=== PATIENT | male | born 1950 | race Caucasian/White ===

== ENCOUNTER 2017-08-07 08:12 | Emergency (ER) | payer MEDICARE, BC ==
[2017-08-07] MEDS ORDERED: IPRATROPIUM-ALBUTEROL 3 ML NEB INHALATION STA (08:24)
[2017-08-07] MEDS ORDERED: SODIUM CHLORIDE 0.9% 1,000 ML IV STA (08:24)
--- NOTE | 2017-08-07 08:31 | ED ---
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 He states it always weeks ago he had rhinorrhea perhaps some cough and chills he thought he had flu symptoms that is since resolved in the symptoms except for the shortness of breath he denies any chest pain he states he was out cleaning snow off this morning when he started getting short of breath without chest pain he states he doesn't feel totally back to normal now he does feel better at this time talking does not make him short of breath. Began with exertion he did have the dyspnea. His other complaints this time he quit smoking many years ago no cough or phlegm production fevers chills sweats patient does state that in the past he had been on Combivent and Spiriva he has not been using this as he does not feel that he has needed it recently MD Complaint: shortness of breath - Related Data Home Medications Medication Instructions Recorded Confirmed Aspirin 81 mg PO DAILY 05/26/15 08/07/17 Carvedilol [Coreg] 6.25 mg PO BID 05/26/15 08/07/17 Hydrochlorothiazide [Hydrodiuril] 25 mg PO DAILY 05/26/15 08/07/17 Levothyroxine Sodium [Levoxyl] 200 mcg PO DAILY 05/26/15 08/07/17 Simvastatin [Zocor] 40 mg PO HS 05/26/15 08/07/17 Cholecalciferol [Vitamin D3] 1,000 unit PO DAILY 08/07/17 08/07/17 Insulin Aspart [NovoLOG 20 unit SQ AC-BRKFST 08/07/17 08/07/17 (formulary)] Insulin Aspart [NovoLOG 22 unit SQ AC-LUNCH 08/07/17 08/07/17 (formulary)] Insulin Aspart [NovoLOG 32 unit SQ AC-SUPPER 08/07/17 08/07/17 (formulary)] Insulin Glargine,Hum.rec.anlog 70 units SQ HS 08/07/17 08/07/17 [Toujeo Solostar] Lisinopril 40 mg PO BID 08/07/17 08/07/17 Thiamine [Vitamin B-1] 50 mg PO DAILY 08/07/17 08/07/17 Previous Rx's Medication Instructions Recorded Ipratropium/Albuterol Sulfate 2 puff INHALATION QID #1 inhaler 08/07/17 [Combivent Respimat Inhaler] predniSONE 20 mg PO BID #10 tab 08/07/17 Allergies Allergy/AdvReac Type Severity Reaction Status Date / Time No Known Allergies Allergy Verified 08/07/17 08:43 Review of Systems ROS Statement: Those systems with pertinent positive or pertinent negative responses have been documented in the HPI. ROS Other: All systems not noted in ROS Statement are negative. Past Medical History Past Medical History: Diabetes Mellitus, Hypertension, Thyroid Disorder History of Any Multi-Drug Resistant Organisms: None Reported Past Surgical History: Appendectomy, Hernia Repair Past Psychological History: No Psychological Hx Reported Smoking Status: Former smoker Past Alcohol Use History: Occasional Past Drug Use History: None Reported General Exam - General Exam Comments Initial Comments: This is a well-developed well-nourished awake alert oriented 3 male Limitations: no limitations General appearance: alert, in no apparent distress Head exam: Present: atraumatic, normocephalic, normal inspection Eye exam: Present: normal appearance, PERRL, EOMI. Absent: scleral icterus, conjunctival injection, periorbital swelling ENT exam: Present: normal exam, mucous membranes moist Neck exam: Present: normal inspection. Absent: tenderness, meningismus, lymphadenopathy Respiratory exam: Present: decreased breath sounds. Absent: respiratory distress, wheezes, rales, rhonchi, stridor Cardiovascular Exam: Present: regular rate, normal rhythm, normal heart sounds. Absent: systolic murmur, diastolic murmur, rubs, gallop, clicks GI/Abdominal exam: Present: soft, normal bowel sounds. Absent: distended, tenderness, guarding, rebound, rigid Extremities exam: Present: normal inspection, full ROM, normal capillary refill. Absent: tenderness, pedal edema, joint swelling, calf tenderness Back exam: Present: normal inspection Neurological exam: Present: alert, oriented X3, CN II-XII intact Psychiatric exam: Present: normal affect, normal mood Skin exam: Present: warm, dry, intact, normal color. Absent: rash Course Vital Signs 08/07/17 08/07/17 08/07/17 08:14 08:45 09:03 Temperature 97.6 F Pulse Rate 77 73 76 Respiratory 18 Rate Blood Pressure 173/81 O2 Sat by Pulse 99 Oximetry 08/07/17 08/07/17 09:38 10:30 Temperature Pulse Rate 80 70 Respiratory 19 14 Rate Blood Pressure 148/71 127/64 O2 Sat by Pulse 97 96 Oximetry - Reevaluation(s) Reevaluation #1: 08/07/17 09:36 Patient did get some improvement after the nebulizer treatment. We did discuss lab values however the patient had no chest pain but does have elevated d-dimer there is concern at this point for the possibility of clotting. CT the chest will be performed. Medical Decision Making - Medical Decision Making Reevaluation patient reveals good lung sounds no wheezing. Patient does feel improved he will be discharged on appropriate medication will be referred to pulmonary medicine for evaluation of the nodule he is aware of the nodule in the size. - Lab Data Result diagrams: 08/07/17 08:25 08/07/17 08:25 Lab Results 08/07/17 08/07/17 08/07/17 Range/Units 08:25 08:25 08:25 WBC 10.8 H (3.8-10.6) k/uL RBC 4.73 (4.30-5.90) m/uL Hgb 13.8 (13.0-17.5) gm/dL Hct 40.5 (39.0-53.0) % MCV 85.6 (80.0-100.0) fL MCH 29.1 (25.0-35.0) pg MCHC 34.0 (31.0-37.0) g/dL RDW 13.8 (11.5-15.5) % Plt Count 272 (150-450) k/uL Neutrophils % 71 % Lymphocytes % 19 % Monocytes % 4 % Eosinophils % 4 % Basophils % 1 % Neutrophils # 7.7 (1.3-7.7) k/uL Lymphocytes # 2.1 (1.0-4.8) k/uL Monocytes # 0.4 (0-1.0) k/uL Eosinophils # 0.5 (0-0.7) k/uL Basophils # 0.1 (0-0.2) k/uL PT (9.0-12.0) sec INR (<1.2) APTT (22.0-30.0) sec D-Dimer (<0.60) mg/L FEU Sodium 139 (137-145) mmol/L Potassium 4.1 (3.5-5.1) mmol/L Chloride 103 (98-107) mmol/L Carbon Dioxide 24 (22-30) mmol/L Anion Gap 12 mmol/L BUN 22 H (9-20) mg/dL Creatinine 1.07 (0.66-1.25) mg/dL Est GFR (CKD-EPI)AfAm 83 (>60 ml/min/1.73 sqM) Est GFR (CKD-EPI)NonAf 72 (>60 ml/min/1.73 sqM) Glucose 171 H (74-99) mg/dL Calcium 9.3 (8.4-10.2) mg/dL Magnesium 1.9 (1.6-2.3) mg/dL Total Bilirubin 0.5 (0.2-1.3) mg/dL AST 21 (17-59) U/L ALT 30 (21-72) U/L Alkaline Phosphatase 72 (38-126) U/L Total Creatine Kinase 116 (55-170) U/L CK-MB (CK-2) 1.7 (0.0-2.4) ng/mL CK-MB (CK-2) Rel Index 1.5 Troponin I <0.012 (0.000-0.034) ng/mL NT-Pro-B Natriuret Pep pg/mL Total Protein 6.5 (6.3-8.2) g/dL Albumin 4.0 (3.5-5.0) g/dL 08/07/17 08/07/17 Range/Units 08:25 08:25 WBC (3.8-10.6) k/uL RBC (4.30-5.90) m/uL Hgb (13.0-17.5) gm/dL Hct (39.0-53.0) % MCV (80.0-100.0) fL MCH (25.0-35.0) pg MCHC (31.0-37.0) g/dL RDW (11.5-15.5) % Plt Count (150-450) k/uL Neutrophils % % Lymphocytes % % Monocytes % % Eosinophils % % Basophils % % Neutrophils # (1.3-7.7) k/uL Lymphocytes # (1.0-4.8) k/uL Monocytes # (0-1.0) k/uL Eosinophils # (0-0.7) k/uL Basophils # (0-0.2) k/uL PT 10.3 (9.0-12.0) sec INR 1.0 (<1.2) APTT 24.0 (22.0-30.0) sec D-Dimer 0.98 H (<0.60) mg/L FEU Sodium (137-145) mmol/L Potassium (3.5-5.1) mmol/L Chloride (98-107) mmol/L Carbon Dioxide (22-30) mmol/L Anion Gap mmol/L BUN (9-20) mg/dL Creatinine (0.66-1.25) mg/dL Est GFR (CKD-EPI)AfAm (>60 ml/min/1.73 sqM) Est GFR (CKD-EPI)NonAf (>60 ml/min/1.73 sqM) Glucose (74-99) mg/dL Calcium (8.4-10.2) mg/dL Magnesium (1.6-2.3) mg/dL Total Bilirubin (0.2-1.3) mg/dL AST (17-59) U/L ALT (21-72) U/L Alkaline Phosphatase (38-126) U/L Total Creatine Kinase (55-170) U/L CK-MB (CK-2) (0.0-2.4) ng/mL CK-MB (CK-2) Rel Index Troponin I (0.000-0.034) ng/mL NT-Pro-B Natriuret Pep 40 pg/mL Total Protein (6.3-8.2) g/dL Albumin (3.5-5.0) g/dL - EKG Data -: EKG Interpreted by Me EKG shows normal: sinus rhythm (Sinus rhythm rate of 71 appear interval 164 QRS 122 QT since QTC of 396/4:30 nonspecific interventricular conduction delay also single PVC noted. Also PACs.) - Radiology Data Radiology results: report reviewed (I did review the imaging and reports no acute findings or is evidence of a 7 mm pulmonary nodule on the left upper lobe. ), image reviewed Disposition Clinical Impression: Asthmatic bronchitis, Pulmonary nodule Disposition: HOME SELF-CARE Condition: Good Instructions: Bronchospasm (ED), COPD (Chronic Obstructive Pulmonary Disease) ( ED), Pulmonary Nodules (ED) Prescriptions: Ipratropium/Albuterol Sulfate [Combivent Respimat Inhaler] 2 puff INHALATION QID #1 inhaler predniSONE 20 mg PO BID #10 tab Referrals: Dell Merino DO [Primary Care Provider] - 1-2 days Divya Matthews MD [STAFF PHYSICIAN] - 1-2 days
[2017-08-07 08:44] LABS: Basophils # (A) 0.1 k/uL (0-0.2); Basophils % (A) 1 %; Eosinophils # (A) 0.5 k/uL (0-0.7); Eosinophils % (A) 4 %; HCT 40.5 % (39.0-53.0); HGB 13.8 gm/dL (13.0-17.5); Lymphocytes # (A) 2.1 k/uL (1.0-4.8); Lymphocytes % (A) 19 %; MCH 29.1 pg (25.0-35.0); MCV 85.6 fL (80.0-100.0); Mean Platelet Volume 8.2; Monocytes # (A) 0.4 k/uL (0-1.0); Monocytes % (A) 4 %; Neutrophils # (A) 7.7 k/uL (1.3-7.7); Neutrophils % (A) 71 %; Platelet Count 272 k/uL (150-450); RBC 4.73 m/uL (4.30-5.90); RDW 13.8 % (11.5-15.5); WBC 10.8 k/uL (3.8-10.6)
[2017-08-07 08:52] LABS: D-Dimer 0.98 mg/L FEU (<0.60)
[2017-08-07 08:55] LABS: Calcium 9.3 mg/dL (8.4-10.2); Potassium 4.1 mmol/L (3.5-5.1); Total Bilirubin 0.5 mg/dL (0.2-1.3); Total Protein 6.5 g/dL (6.3-8.2)
[2017-08-07 08:58] LABS: Prothrombin Time 10.3 sec (9.0-12.0)
[2017-08-07 09:07] LABS: Creatine Kinase 116 U/L (55-170)
[2017-08-07 09:21] LABS: Creatine Kinase MB 1.7 ng/mL (0.0-2.4); Troponin I <0.012 ng/mL (0.000-0.034)
--- NOTE | 2017-08-07 09:29 | XR ---
EXAMINATION TYPE: XR chest 2V DATE OF EXAM: 08/07/2017 COMPARISON: 11/05/2008 HISTORY: 67-year-old male difficulty breathing, shortness of breath for a few days TECHNIQUE: PA and lateral views FINDINGS: Exam is rotated towards the right. This ultrasound and normal cardiac mediastinal contours. Heart naina ears normal size. Pulmonary vasculature within normal limits. Strandy atelectasis/scarring at the lef t base is relatively similar as are calcified left hilar lymph nodes and calcified granuloma at the p eripheral left base. Hyperinflation with flattening of the hemidiaphragms. No consolidation or pleura l effusion seen. IMPRESSION: Rotated exam. There is COPD and prior granulomatous disease. No definite acute process.
[2017-08-07] MEDS ORDERED: RX INFO: IV CONTRAST WAS GIVEN 1 EACH MISC MISCELLANE PRN (09:36)
--- NOTE | 2017-08-07 10:26 | CT ---
EXAMINATION TYPE: CT angio chest DATE OF EXAM: 08/07/2017 COMPARISON: Radiograph same day HISTORY: 67-year-old male SOB, elevated d dimer TECHNIQUE: Contiguous axial scanning of the chest performed with IV Contrast, patient injected with 1 00 mL of Omnipaque 350. Coronal/sagittal MIP reconstructions performed. CT DLP: 610 mGycm Automated exposure control for dose reduction was used. FINDINGS: The heart is normal size with trace anterior basilar pericardial fluid. Coronary vessel calcification s are present and are a marker for coronary artery disease. Aorta normal caliber with moderate atherosclerotic arch calcifications and conventional arch vessel b ranching anatomy. Satisfactory opacification of the pulmonary arterial system without evidence for pulmonary embolus. Calcified left hilar lymph nodes are noted with a few scattered calcified granulomas in the lungs, la rgest at the peripheral left base. No thoracic lymphadenopathy by CT size criteria. Evaluation of the lungs shows mild paraseptal emphysema in the upper lungs and mild diffuse bronchial wall thickening. There is a 7 mm pulmonary nodule in the left upper lobe axial image 37. Some strandy atelectasis or s carring at the medial right middle lobe. No consolidation or pleural effusion. Visualized upper abdomen shows a tiny hiatal hernia. Bones: Endplate spondylosis mid to lower thoracic spine and cervical spondylosis as well. No osseous destructive process. IMPRESSION: 1. COPD WITH MILD EMPHYSEMA AND PRIOR GRANULOMATOUS DISEASE. CAD. 2. NO EVIDENCE FOR PULMONARY EMBOLUS. 3. A 7 MM LEFT UPPER LOBE PULMONARY NODULE. PER FLEISCHNER GUIDELINES, A 6-12 MONTH FOLLOW-UP CT FOLL OWED BY AN ADDITIONAL FOLLOW-UP CT IN 18-24 MONTHS IS RECOMMENDED. THIS SHOULD BE DONE TO EXCLUDE AN EARLY LUNG CANCER.
[2017-08-07] MEDS ORDERED: predniSONE 50 MG TAB PO STA (11:16)
[2017-08-07 11:44] VITALS: BP 138/62; PULSE 67; RESP 16; TEMP 98.4
== END 2017-08-07 12:05 | disposition home or self-care (01) ==
LOC: EC 08:12
DX: J45.909 Unspecified asthma, uncomplicated (principal); R91.1 Solitary pulmonary nodule; Z87.891 Personal history of nicotine dependence; E11.9 Type 2 diabetes mellitus without complications; I10 Essential (primary) hypertension; E07.9 Disorder of thyroid, unspecified; Z79.82 Long term (current) use of aspirin; Z79.02 Long term (current) use of antithrombotics/antiplatelets; Z79.4 Long term (current) use of insulin; Z79.899 Other long term (current) drug therapy
CPT/HCPCS: 36415; 94640; 93005; 85379; 83880; 80053; 82550; 82553; 83735; 84484; 85025; 85610; 85730; 71046; 71275; 99285; Q9967; J7512

== ENCOUNTER → 2018-02-17 | Outpatient (CLI) | payer MEDICARE, BC ==
--- NOTE | 2018-02-17 22:44 | CT ---
EXAMINATION TYPE: CT chest w con DATE OF EXAM: 02/17/2018 COMPARISON: 08/07/2017 HISTORY: 68-year-old male Follow up nodule. No complaints at time of scan TECHNIQUE: Contiguous axial scanning of the chest after the administration of 100 mL of Isovue 300. Coronal/sagittal reconstructions performed. CT DLP: 713mGycm. Automatic exposure control utilized for a dose reduction. FINDINGS: Heart is normal size without pericardial effusion. Coronary vessel calcifications are present. Borderline ectasia ascending aorta 3.5 cm. Mild atherosclerotic arch calcifications with conventional arch vessel branching anatomy. No thoracic lymphadenopathy by CT size criteria. Calcified left hilar lymph nodes and calcified gran uloma peripheral left base. Mild diffuse bronchial wall thickening and mild sinus changes particularly in the upper lungs. Stable 7 mm left upper lobe pulmonary nodule. No consolidation or pleural effusion. Small hiatal hernia. Suspicious heterogeneously enhancing area in the lateral left kidney measuring at least 7.0 cm. Findings are concerning for neoplasm. Similar diffuse thickening of the adrenal glan ds without discrete nodularity. Moderate atherosclerotic changes in the visualized upper abdominal ao rta. Bones: Endplate spondylosis mid to lower thoracic spine. No osseous destructive process. IMPRESSION: 1. Note incidental finding of a very suspicious lesion in the left kidney measuring at least 7.0 cm. RCC needs to be excluded. Recommend follow-up renal mass protocol CT. 2. COPD with mild emphysema. CAD. Prior granulomatous disease. 3. Stable 7 mm left upper lobe pulmonary nodule for 6 months. Additional 18-24 month follow-up from t he patient's initial 08/07/2017 CT is recommended.
== END | disposition home or self-care (01) ==
LOC: RADCTMAIN 15:07
PROVIDERS: ATTEND Family Medicine
DX: R91.1 Solitary pulmonary nodule (principal); J43.9 Emphysema, unspecified; I25.10 Atherosclerotic heart disease of native coronary artery without angina pectoris
CPT/HCPCS: 82565; 84520; 71260; 36415; Q9967

== ENCOUNTER → 2018-03-25 | Outpatient (CLI) | payer MEDICARE, BC ==
--- NOTE | 2018-03-25 09:43 | CT ---
EXAMINATION TYPE: CT abdomen wo/w con DATE OF EXAM: 03/25/2018 COMPARISON: Correlation CT chest 02/17/2018 and 08/07/2017 HISTORY: 68-year-old male intra-abdominal swelling, renal mass, abn chest CT TECHNIQUE: Contiguous axial scanning of the abdomen before and after administration of 100 ml Isovue 300 IV contrast. Delayed images through the kidneys and coronal/sagittal reconstructions performed. CT DLP: 1527 mGycm Automated exposure control for dose reduction was used. FINDINGS: Heart normal size without pericardial effusion. Tiny hiatal hernia. Calcified granuloma peripheral le ft base. No pleural effusion. Liver upper limits of normal in size at 17.9 cm. No focal lesion seen. No biliary ductal dilatation. Portal venous system is patent Gallbladder, right adrenal gland, spleen, and atrophic pancreas show no gross abnormal. Number of hypodense lesions within the right kidney many of which are too small for accurate CT kallie cterization, largest measuring 2.3 cm compatible with cysts. Additional cysts are present in the left kidney, measuring up to 3.2 cm. However, there is redemonstr ation of a heterogeneously enhancing mass of the lateral upper pole left kidney measuring 6.8 cm wide by 4.6 cm AP by 6.5 cm screening caudal. No mesenteric or retroperitoneal lymphadenopathy. The renal vein is patent. Partially visualized ventral abdominal wall hernia containing bowel loops. This appears to be fairly sizable hernia and is only partially visualized. Some fat stranding is present adjacent to the subcut aneous fat layer. Moderate atherosclerotic calcifications within the infrarenal abdominal aorta and iliac arteries. Low-density nodular thickening of the left adrenal gland measuring 3.7 x 2.2 cm. Attenuation is 8 Theresa nsfield units most compatible with a lipid rich adrenal adenoma. No dilated small bowel, free fluid, or free air. Left hemicolectomy diverticulosis. Bones: Degenerative changes throughout the visualized spine. No osseous destructive process seen. IMPRESSION: 1. HETEROGENEOUSLY ENHANCING MASS LATERAL UPPER POLE LEFT KIDNEY MEASURING UP TO 6.8 CM, PRESUMED RCC . UROLOGY REFERRAL RECOMMENDED FOR FURTHER MANAGEMENT. 2. NO EVIDENCE FOR METASTATIC DISEASE IN THE ABDOMEN. 3. PARTIALLY VISUALIZED SIZABLE VENTRAL ABDOMINAL WALL HERNIA CONTAINING BOWEL LOOPS. THERE IS SOME F AT STRANDING IN THE SUBCUTANEOUS FAT JUST ADJACENT SUGGESTING SOME DEGREE OF INFLAMMATION.
== END | disposition home or self-care (01) ==
LOC: RADCTMAIN 06:46
PROVIDERS: ATTEND Family Medicine
DX: N28.89 Other specified disorders of kidney and ureter (principal); K43.9 Ventral hernia without obstruction or gangrene; R19.09 Other intra-abdominal and pelvic swelling, mass and lump
CPT/HCPCS: 82565; 84520; 74170; 36415; Q9967

== ENCOUNTER 2018-12-29 18:48 | Observation (INO) | payer MEDICARE, BC ==
--- NOTE | 2018-12-29 19:10 | ED ---
General Adult HPI - General Source: patient, RN notes reviewed, old records reviewed Mode of arrival: ambulatory Limitations: no limitations <Cipriano Michael - Last Filed: 12/29/18 23:09> <Tone Gutierrez - Last Filed: 12/29/18 23:17> - General Chief complaint: Shortness of Breath Stated complaint: SOB/bronchitis Time Seen by Provider: 12/29/18 19:04 - History of Present Illness Initial comments: 68-year-old male patient, former smoker, past history type 2 diabetes, hypertension and CU chief complaint of shortness of breath. Patient has not been formally diagnosed as COPD, however due to previous extensive smoking history primary care provider believes the patient may have COPD. Patient reports that he has had multiple episodes of shortness of breath in the past 2 years which have responded well been treatments and steroids. Patient ports that for approximately an day he has had shortness of breath. States this feels similar to prior occurrences. Denies any chest pain. Denies any other associated symptoms, denies other complaints. Systemic: Pt denies fatigue, fever/chills, rash. Pt denies weakness, night sweats, weight loss. Neuro: Pt denies headache, visual disturbances, syncope or pre-syncope. HEENT: Pt denies ocular discharge or irritation, otalgia, rhinorrhea, pharyngitis or notable lymphadenopathy. Cardiopulmonary: Pt denies chest pain, heart palpitations, dyspnea on exertion. Abdominal/GI: Pt denies abdominal pain, n/v/d. : Pt denies dysuria, burning w/ urination, frequency/urgency. Denies new onset urinary or bowel incontinence. MSK: Pt denies myalgia, loss of strength or function in extremities. Neuro: Pt denies new onset weakness, paresthesias. (Cipriano Michael) - Related Data Home Medications Medication Instructions Recorded Confirmed Aspirin 81 mg PO DAILY 05/26/15 12/29/18 Carvedilol [Coreg] 6.25 mg PO BID 05/26/15 12/29/18 Hydrochlorothiazide [Hydrodiuril] 25 mg PO DAILY 05/26/15 12/29/18 Simvastatin [Zocor] 40 mg PO HS 05/26/15 12/29/18 Cholecalciferol [Vitamin D3] 1,000 unit PO DAILY 08/07/17 12/29/18 INSULIN ASPART (NovoLOG) [NovoLOG See Protocol SQ AC-TID 08/07/17 12/29/18 (formulary)] Lisinopril 40 mg PO BID 08/07/17 12/29/18 Insulin Degludec [Tresiba 65 units SQ HS 12/29/18 12/29/18 Flextouch U-100] Levothyroxine Sodium [Synthroid] 175 mcg PO DAILY 12/29/18 12/29/18 Tamsulosin HCl [Flomax] 0.4 mg PO HS 12/29/18 12/29/18 Allergies Allergy/AdvReac Type Severity Reaction Status Date / Time No Known Allergies Allergy Verified 12/29/18 19:17 Review of Systems ROS Other: All systems not noted in ROS Statement are negative. <Cipriano Michael - Last Filed: 12/29/18 23:09> ROS Other: All systems not noted in ROS Statement are negative. <Tone Gutierrez - Last Filed: 12/29/18 23:17> ROS Statement: Those systems with pertinent positive or pertinent negative responses have been documented in the HPI. Past Medical History Past Medical History: Diabetes Mellitus, Hypertension, Thyroid Disorder History of Any Multi-Drug Resistant Organisms: None Reported Past Surgical History: Appendectomy, Hernia Repair Past Psychological History: No Psychological Hx Reported Smoking Status: Former smoker Past Alcohol Use History: Occasional Past Drug Use History: None Reported <Cipriano Michael - Last Filed: 12/29/18 23:09> General Exam Limitations: no limitations <Cipriano Michael - Last Filed: 12/29/18 23:09> - General Exam Comments Initial Comments: Constitutional: NAD, AOX3, Pt has pleasant affect. HEENT: NC/AT, trachea midline, neck supple, no lymphadenopathy. Posterior pharynx non erythematous, without exudates. External ears appear normal, without discharge. Mucous membranes moist. Eyes PERRLA, EOM intact. There is no scleral icterus. No pallor noted. Cardiopulmonary: RRR, no murmurs, rubs or gallops, no JVD noted. Mild wheezing noted in anterior lung [place], resolved after breathin gtreatment. No peripheral edema. Abdominal exam: Abdomen soft and non-distended. Abdomen non-tender to palpation in all 4 quadrants. Bowel sounds active in LLQ. No hepatosplenomegaly. No ecchymosis Neuro: CN II-XII grossly intact. No nuchal rigidity. No raccon eyes, no jorgensen sign, no hemotympanum. No cervical spinal tenderness. MSK: No posterior calf tenderness bilaterally, homans sign negative bilaterally. Posterior tibialis and radial pulse +2 bilaterally. Sensation intact in upper and lower extremities. Full active ROM in upper and lower extremities, 5/5 stregnth. (Cipriano Michael) Course <Tone Gutierrez - Last Filed: 12/29/18 23:17> Vital Signs 12/29/18 12/29/18 12/29/18 18:55 19:30 19:45 Temperature 98 F 98 F Pulse Rate 74 67 67 Respiratory 18 20 Rate Blood Pressure 144/86 149/66 O2 Sat by Pulse 98 98 Oximetry 12/29/18 12/29/18 12/29/18 20:01 20:15 20:44 Temperature Pulse Rate 70 67 Respiratory 20 22 Rate Blood Pressure 147/80 O2 Sat by Pulse 98 Oximetry 12/29/18 12/29/18 21:01 23:14 Temperature Pulse Rate 62 58 L Respiratory 18 Rate Blood Pressure 119/70 O2 Sat by Pulse 96 Oximetry - Reevaluation(s) Reevaluation #1: 12/29/18 23:15 PA supervision: I proceeded [id number] evaluation the patient did present with complaints of shortness of breath she's been on various outpatient medications without success. The patient presents with dyspnea tonight unit in spite of treatment the circumflex comes quickly back to his dyspnea after minimal improvement. I did discuss case with Dr. Wills patient will be admitted consultation by Dr. Schultz. I do agree with the assessment and plan the patient did demonstrate markedly diminished breath sounds bilaterally. (Tone Gutierrez) Medical Decision Making - Lab Data Result diagrams: 12/29/18 19:47 12/29/18 19:47 - EKG Data -: EKG Interpreted by Me (and Dr. Gutierrez) <Cipriano Michael - Last Filed: 12/29/18 23:09> - Lab Data Result diagrams: 12/29/18 19:47 12/29/18 19:47 <Tone Gutierrez - Last Filed: 12/29/18 23:17> - Medical Decision Making 68-year-old male patient, former smoker, past history type 2 diabetes, h ypertension and CU chief complaint of shortness of breath. Patient has not been formally diagnosed as COPD, however due to previous extensive smoking history primary care provider believes the patient may have COPD. Patient reports that he has had multiple episodes of shortness of breath in the past 2 years which have responded well been treatments and steroids. Patient ports that for approximately an day he has had shortness of breath. States this feels similar to prior occurrences. Denies any chest pain. Denies any other associated symptoms, denies other complaints. Discussed in stable, afebrile. Physical exam displayed mild wheezing in anterior lung [place], resolved after breathing treatment. Patient did then become short of breath after recent treatment. Patient admitted for COPD exacerbation. Case discussed with Dr. Gutierrez. (Cipriano Michael) - Lab Data Lab Results 12/29/18 12/29/18 12/29/18 Range/Units 19:47 19:47 19:47 WBC 11.7 H (3.8-10.6) k/uL RBC 4.43 (4.30-5.90) m/uL Hgb 13.6 (13.0-17.5) gm/dL Hct 40.2 (39.0-53.0) % MCV 90.8 (80.0-100.0) fL MCH 30.6 (25.0-35.0) pg MCHC 33.7 (31.0-37.0) g/dL RDW 15.2 (11.5-15.5) % Plt Count 208 (150-450) k/uL Neutrophils % 71 % Lymphocytes % 17 % Monocytes % 5 % Eosinophils % 5 % Basophils % 1 % Neutrophils # 8.3 H (1.3-7.7) k/uL Lymphocytes # 2.0 (1.0-4.8) k/uL Monocytes # 0.6 (0-1.0) k/uL Eosinophils # 0.6 (0-0.7) k/uL Basophils # 0.1 (0-0.2) k/uL PT 10.0 (9.0-12.0) sec INR 0.9 (<1.2) APTT 23.5 (22.0-30.0) sec Sodium 137 (137-145) mmol/L Potassium 4.5 (3.5-5.1) mmol/L Chloride 107 (98-107) mmol/L Carbon Dioxide 21 L (22-30) mmol/L Anion Gap 9 mmol/L BUN 48 H (9-20) mg/dL Creatinine 2.08 H (0.66-1.25) mg/dL Est GFR (CKD-EPI)AfAm 36 (>60 ml/min/1.73 sqM) Est GFR (CKD-EPI)NonAf 32 (>60 ml/min/1.73 sqM) Glucose 196 H (74-99) mg/dL Calcium 9.0 (8.4-10.2) mg/dL Total Bilirubin 0.3 (0.2-1.3) mg/dL AST 22 (17-59) U/L ALT 33 (21-72) U/L Alkaline Phosphatase 103 (38-126) U/L Troponin I (0.000-0.034) ng/mL Total Protein 6.0 L (6.3-8.2) g/dL Albumin 3.7 (3.5-5.0) g/dL 12/29/18 Range/Units 19:47 WBC (3.8-10.6) k/uL RBC (4.30-5.90) m/uL Hgb (13.0-17.5) gm/dL Hct (39.0-53.0) % MCV (80.0-100.0) fL MCH (25.0-35.0) pg MCHC (31.0-37.0) g/dL RDW (11.5-15.5) % Plt Count (150-450) k/uL Neutrophils % % Lymphocytes % % Monocytes % % Eosinophils % % Basophils % % Neutrophils # (1.3-7.7) k/uL Lymphocytes # (1.0-4.8) k/uL Monocytes # (0-1.0) k/uL Eosinophils # (0-0.7) k/uL Basophils # (0-0.2) k/uL PT (9.0-12.0) sec INR (<1.2) APTT (22.0-30.0) sec Sodium (137-145) mmol/L Potassium (3.5-5.1) mmol/L Chloride (98-107) mmol/L Carbon Dioxide (22-30) mmol/L Anion Gap mmol/L BUN (9-20) mg/dL Creatinine (0.66-1.25) mg/dL Est GFR (CKD-EPI)AfAm (>60 ml/min/1.73 sqM) Est GFR (CKD-EPI)NonAf (>60 ml/min/1.73 sqM) Glucose (74-99) mg/dL Calcium (8.4-10.2) mg/dL Total Bilirubin (0.2-1.3) mg/dL AST (17-59) U/L ALT (21-72) U/L Alkaline Phosphatase (38-126) U/L Troponin I <0.012 (0.000-0.034) ng/mL Total Protein (6.3-8.2) g/dL Albumin (3.5-5.0) g/dL - EKG Data EKG Comments: Ventricular rate 68, painful NAD, QRS 118, QT/QTC 370/393. Normal sinus rhythm, nonspecific interventricular conduction delay. EKG. (Cipriano Michael) Disposition Is patient prescribed a controlled substance at d/c from ED?: No <Cipriano Michael - Last Filed: 12/29/18 23:09> <Tone Gutierrez - Last Filed: 12/29/18 23:17> Clinical Impression: COPD exacerbation, Failure of outpatient treatment, Renal insufficiency Disposition: ADMITTED IP TO THIS HOSP Condition: Serious Referrals: Dell Merino DO [Primary Care Provider] - 1-2 days
[2018-12-29] MEDS ORDERED: methylPREDNISolone SOD SUCCI 125 MG/2 ML VIAL IV STA (19:13)
[2018-12-29] MEDS ORDERED: IPRATROPIUM-ALBUTEROL 3 ML NEB INHALATION STA ×2 (19:13→20:48)
[2018-12-29 20:06] LABS: Basophils # (A) 0.1 k/uL (0-0.2); Basophils % (A) 1 %; Eosinophils # (A) 0.6 k/uL (0-0.7); Eosinophils % (A) 5 %; HCT 40.2 % (39.0-53.0); HGB 13.6 gm/dL (13.0-17.5); Lymphocytes % (A) 17 %; MCH 30.6 pg (25.0-35.0); MCHC 33.7 g/dL (31.0-37.0); MCV 90.8 fL (80.0-100.0); Mean Platelet Volume 8.1; Monocytes # (A) 0.6 k/uL (0-1.0); Monocytes % (A) 5 %; Neutrophils # (A) 8.3 k/uL (1.3-7.7); Neutrophils % (A) 71 %; Platelet Count 208 k/uL (150-450); RBC 4.43 m/uL (4.30-5.90); RDW 15.2 % (11.5-15.5); WBC 11.7 k/uL (3.8-10.6)
--- NOTE | 2018-12-29 20:11 | XR ---
EXAMINATION TYPE: XR chest 2V DATE OF EXAM: 12/29/2018 COMPARISON: 08/07/2017 HISTORY: Short of breath TECHNIQUE: Frontal and lateral views of the chest are obtained. FINDINGS: There is no heart failure nor confluent pneumonic infiltrate. Costophrenic angles are lise r. There are few scattered pulmonary calcified granulomata. Heart size is normal. There are chest parris ds. IMPRESSION: No active cardiopulmonary disease. Normal heart. No change.
[2018-12-29 20:18] LABS: Albumin 3.7 g/dL (3.5-5.0); Potassium 4.5 mmol/L (3.5-5.1); Total Bilirubin 0.3 mg/dL (0.2-1.3)
[2018-12-29 20:22] LABS: INR 0.9 (<1.2); Partial Thromboplastin Time 23.5 sec (22.0-30.0)
[2018-12-29] MEDS ORDERED: SODIUM CHLORIDE 0.9% 1,000 ML IV STA (20:31)
[2018-12-30] MEDS: methylPREDNISolone SOD SUCCI 125 MG/2 ML VIAL IV SCH ×3 (00:51→13:56)
[2018-12-30] MEDS: IPRATROPIUM-ALBUTEROL 3 ML NEB INHALATION SCH ×2 (07:30→11:09)
[2018-12-30 07:45] VITALS: BP 141/71; TEMP 97.7
[2018-12-30 10:04] VITALS: BMI 33.0
[2018-12-30] MEDS: INSULIN ASPART (NovoLOG) 100 UNIT/ML VIAL SQ SCH ×2 (10:54→13:08)
[2018-12-30 11:13] VITALS: RESP 18
[2018-12-30 11:23] VITALS: PULSE 90
[2018-12-30 11:52] LABS: Glucose,Whole Blood 271 mg/dL (75-99)
[2018-12-30] MEDS ORDERED: SODIUM CHLORIDE 0.9% 1,000 ML IV SCH (12:30)
[2018-12-30] MEDS ORDERED: INSULIN ASPART (NovoLOG) 100 UNIT/ML VIAL SQ SCH ×2 (12:45→17:30)
--- NOTE | 2018-12-30 13:52 | P.HPIM ---
History of Present Illness Patient is a pleasant 68-year-old gentleman came in with comments of shortness of breath was diagnosed with COPD in ER started on systemic steroids. Patient wheezing significantly improved mildly decreased air entry into bilateral lung [place]. Patient is now diagnosed with COPD does have history of smoking quit 2 years ago. Patient will be discharged on weaning dose of steroids patient had a left nephrectomy in June of this year for renal cell carcinoma. Patient baseline creatinine before that was 1 now around 2. Patient is on hydrochlorothiazide which is not beneficial with his creatinine level because of which I'll discontinue that medication, I do not have any available to assess for proteinuria also cut down the dose of lisinopril from 40 twice a day 40 daily and patient will be discharged to follow up with nephrology and primary care physician as well as pulmonary as an outpatient patient will need outpatie nt pulmonary function testing. He was complaining of cough without any sputum production Review of Systems REVIEW OF SYSTEMS: CONSTITUTIONAL: No fever, no malaise, no fatigue. HEENT: No recent visual problems or hearing problems. Denied any sore throat. CARDIOVASCULAR: No chest pain, orthopnea, PND, no palpitations, no syncope. PULMONARY: no hemoptysis. GASTROINTESTINAL: No diarrhea, no nausea, no vomiting, no abdominal pain. NEUROLOGICAL: No headaches, no weakness, no numbness. HEMATOLOGICAL: Denies any bleeding or petechiae. GENITOURINARY: Denies any burning micturition, frequency, or urgency. MUSCULOSKELETAL/RHEUMATOLOGICAL: Denies any joint pain, swelling, or any muscle pain. ENDOCRINE: Denies any polyuria or polydipsia. The rest of the 14-point review of systems is negative. Past Medical History Past Medical History: Diabetes Mellitus, Hypertension, Thyroid Disorder History of Any Multi-Drug Resistant Organisms: None Reported Past Surgical History: Appendectomy, Hernia Repair Additional Past Surgical History / Comment(s): left kidney removal secondary to cancer Past Anesthesia/Blood Transfusion Reactions: No Reported Reaction Past Psychological History: No Psychological Hx Reported Smoking Status: Former smoker Past Alcohol Use History: Occasional Past Drug Use History: None Reported - Past Family History Mother Family Medical History: Myocardial Infarction (NH) Additional Family Medical History / Comment(s): maternal grandmother had diabetes Sister(s) Family Medical History: Cancer Medications and Allergies Home Medications Medication Instructions Recorded Confirmed Type Aspirin 81 mg PO DAILY 05/26/15 12/29/18 History Carvedilol [Coreg] 6.25 mg PO BID 05/26/15 12/29/18 History Simvastatin [Zocor] 40 mg PO HS 05/26/15 12/29/18 History Cholecalciferol [Vitamin D3 (25 1,000 unit PO DAILY 08/07/17 12/29/18 History Mcg = 1000 Iu)] INSULIN ASPART (NovoLOG) [NovoLOG See Protocol SQ AC-TID 08/07/17 12/29/18 History (formulary)] Insulin Degludec [Tresiba 65 units SQ HS 12/29/18 12/29/18 History Flextouch U-100] Levothyroxine Sodium [Synthroid] 175 mcg PO DAILY 12/29/18 12/29/18 History Tamsulosin HCl [Flomax] 0.4 mg PO HS 12/29/18 12/29/18 History Albuterol Inhaler [Ventolin Hfa 1 - 2 puff INHALATION Q6HR PRN #1 12/30/18 Rx Inhaler] inhaler Budesonide-Formot 160-4.5 Mcg 2 puff INHALATION BID #1 inhaler 12/30/18 Rx [Symbicort 160-4.5 Mcg Inhaler] INSULIN ASPART (NovoLOG) [NovoLOG 18 unit SQ AC-BRKFST 12/30/18 12/30/18 History (formulary)] INSULIN ASPART (NovoLOG) [NovoLOG 20 units SQ AC-LUNCH 12/30/18 12/30/18 History (formulary)] INSULIN ASPART (NovoLOG) [NovoLOG 22 units SQ AC-SUPPER 12/30/18 12/30/18 History (formulary)] Lisinopril 40 mg PO DAILY #0 12/30/18 12/29/18 Rx Thiamine HCl [Vitamin B-1] 100 mg PO 12/30/18 History Tiotropium [place] [Spiriva] 1 cap INHALATION DAILY #1 device 12/30/18 Rx predniSONE 10 mg PO DAILY #30 tab 12/30/18 Rx Allergies Allergy/AdvReac Type Severity Reaction Status Date / Time No Known Allergies Allergy Verified 12/29/18 19:17 Physical Exam Vitals: Vital Signs Temp Pulse Pulse Resp BP BP Pulse Ox 12/30/18 11:22 90 18 12/30/18 11:09 85 18 12/30/18 07:45 97.7 F 73 16 141/71 96 12/30/18 07:43 84 12/30/18 07:34 88 97 12/30/18 06:13 97.9 F 62 18 118/62 97 12/29/18 23:14 58 L 18 119/70 96 12/29/18 21:01 62 12/29/18 20:44 67 22 147/80 98 12/29/18 20:15 20 12/29/18 20:01 70 12/29/18 19:45 67 12/29/18 19:30 98 F 67 20 149/66 98 12/29/18 18:55 98 F 74 18 144/86 98 Intake and Output 12/29/18 12/30/18 12/30/18 22:59 06:59 14:59 Intake Total 0 Balance 0 Intake: IV 0 Invasive Line 1 0 Other: Weight 113.398 kg PHYSICAL EXAMINATION: GENERAL: The patient is alert and oriented x3, not in any acute distress. Well developed, well nourished. HEENT: Pupils are round and equally reacting to light. EOMI. No scleral icterus. No conjunctival pallor. Normocephalic, atraumatic. No pharyngeal erythema. No thyromegaly. CARDIOVASCULAR: S1 and S2 present. No murmurs, rubs, or gallops. PULMONARY: Decreased air entry into bilateral lung [place] no wheezing or crackles were appreciated ABDOMEN: Soft, nontender, nondistended, normoactive bowel sounds. No palpable organomegaly. MUSCULOSKELETAL: No joint swelling or deformity. EXTREMITIES: No cyanosis, clubbing, or pedal edema. NEUROLOGICAL: Gross neurological examination did not reveal any focal deficits. SKIN: No rashes. Results CBC & Chem 7: 12/29/18 19:47 12/29/18 19:47 Labs: Abnormal Lab Results - Last 24 Hours (Table) 12/29/18 12/29/18 12/30/18 Range/Units 19:47 19:47 11:48 WBC 11.7 H (3.8-10.6) k/uL Neutrophils # 8.3 H (1.3-7.7) k/uL Carbon Dioxide 21 L (22-30) mmol/L BUN 48 H (9-20) mg/dL Creatinine 2.08 H (0.66-1.25) mg/dL Glucose 196 H (74-99) mg/dL POC Glucose (mg/dL) 271 H (75-99) mg/dL Total Protein 6.0 L (6.3-8.2) g/dL Thrombosis Risk Factor Assmnt - Choose All That Apply Any of the Below Risk Factors Present?: No Other Risk Factors: Yes Each Risk Factor Represents 2 Points: Age 61-74 years Thrombosis Risk Factor Assessment Total Risk Factor Score: 2 Thrombosis Risk Factor Assessment Level: Low Risk Assessment and Plan Plan: -Shortest breath: Possibly secondary to COPD exacerbation will need pulmonary function testing as an outpatient patient will be discharged on weaning dose of steroids along with sliding scale insulin for his expected elevation of blood [place] gars. Patient will resume his home regimen along with the sliding scale insulin for diabetes mellitus type 2. -Possible acute renal failure: With discontinue hydrochlorothiazide and cutting down the dose of lisinopril I expect his renal function to improve a bit. Patient although has chronic kidney disease from left nephrectomy and unilateral kidney. -Type 2 diabetes mellitus with the possible diabetic nephropathy: Management as mentioned above -Hypertension management as mentioned above -Hypothyroidism resumed levothyroxine Patient will be discharged today with the above-mentioned plan
--- NOTE | 2018-12-30 13:52 | P.DS ---
Providers Date of admission: 12/29/18 22:54 Attending physician: Ubaldo Wills MD Consults: 12/29/18 23:06 Consult Physician Stat Consulting Provider: Carlos Jarvis Consult Reason/Comments: copd exacerbation Do you want consulting provider notified?: Yes, Notify in am Primary care physician: [facility] Course: Please refer to my HPI Patient Condition at Discharge: Serious Plan - Discharge Summary Discharge Rx Participant: No New Discharge Prescriptions: New predniSONE 10 mg PO DAILY #30 tab Tiotropium [place] [Spiriva] 1 cap INHALATION DAILY #1 device Budesonide-Formot 160-4.5 Mcg [Symbicort 160-4.5 Mcg Inhaler] 2 puff INHALATION BID #1 inhaler Albuterol Inhaler [Ventolin Hfa Inhaler] 1 - 2 puff INHALATION Q6HR PRN #1 inhaler PRN Reason: Shortness Of Breath Or Wheezing Continue Simvastatin [Zocor] 40 mg PO HS Aspirin 81 mg PO DAILY Carvedilol [Coreg] 6.25 mg PO BID Cholecalciferol [Vitamin D3 (25 Mcg = 1000 Iu)] 1,000 unit PO DAILY INSULIN ASPART (NovoLOG) [NovoLOG (formulary)] See Protocol SQ AC-TID Levothyroxine Sodium [Synthroid] 175 mcg PO DAILY Tamsulosin HCl [Flomax] 0.4 mg PO HS Insulin Degludec [Tresiba Flextouch U-100] 65 units SQ HS Thiamine HCl [Vitamin B-1] 100 mg PO INSULIN ASPART (NovoLOG) [NovoLOG (formulary)] 18 unit SQ AC-BRKFST INSULIN ASPART (NovoLOG) [NovoLOG (formulary)] 20 units SQ AC-LUNCH INSULIN ASPART (NovoLOG) [NovoLOG (formulary)] 22 units SQ AC-SUPPER Changed Lisinopril 40 mg PO DAILY #0 Discontinued Hydrochlorothiazide [Hydrodiuril] 25 mg PO DAILY Discharge Medication List Aspirin 81 mg PO DAILY 05/26/15 [History] Carvedilol [Coreg] 6.25 mg PO BID 05/26/15 [History] Simvastatin [Zocor] 40 mg PO HS 05/26/15 [History] Cholecalciferol [Vitamin D3 (25 Mcg = 1000 Iu)] 1,000 unit PO DAILY 08/07/17 [History] INSULIN ASPART (NovoLOG) [NovoLOG (formulary)] See Protocol SQ AC-TID 08/07/17 [History] Insulin Degludec [Tresiba Flextouch U-100] 65 units SQ HS 12/29/18 [History] Levothyroxine Sodium [Synthroid] 175 mcg PO DAILY 12/29/18 [History] Tamsulosin HCl [Flomax] 0.4 mg PO HS 12/29/18 [History] Albuterol Inhaler [Ventolin Hfa Inhaler] 1 - 2 puff INHALATION Q6HR PRN #1 inhaler 12/30/18 [Rx] Budesonide-Formot 160-4.5 Mcg [Symbicort 160-4.5 Mcg Inhaler] 2 puff INHALATION BID #1 inhaler 12/30/18 [Rx] INSULIN ASPART (NovoLOG) [NovoLOG (formulary)] 18 unit SQ AC-BRKFST 12/30/18 [History] INSULIN ASPART (NovoLOG) [NovoLOG (formulary)] 20 units SQ AC-LUNCH 12/30/18 [History] INSULIN ASPART (NovoLOG) [NovoLOG (formulary)] 22 units SQ AC-SUPPER 12/30/18 [History] Lisinopril 40 mg PO DAILY #0 12/30/18 [Rx] Thiamine HCl [Vitamin B-1] 100 mg PO 12/30/18 [History] Tiotropium [place] [Spiriva] 1 cap INHALATION DAILY #1 device 12/30/18 [Rx] predniSONE 10 mg PO DAILY #30 tab 12/30/18 [Rx] Follow up Appointment(s)/Referral(s): Ronald Coleman DO [STAFF PHYSICIAN] - 1 Week Dell Merino DO [Primary Care Provider] - 1-2 days Carlos Jarvis MD [STAFF PHYSICIAN] - 1 Week Discharge Disposition: HOME SELF-CARE
--- NOTE | 2018-12-30 15:10 | CONS ---
CONSULTATION DATE OF SERVICE: 12/30/2018 HISTORY OF PRESENT ILLNESS: Patient is a 68-year-old male who states a few days ago he started to experience worsening congestion and shortness of breath. He took a few doses of dbdd-iyf-hbhaval decongestants which patient does feel may have helped a little bit, but then yesterday it hit him like a ton of bricks and he was having a very difficult breathing. Subsequently, he came to the emergency room for further evaluation and treatment and we have been consulted for pulmonary evaluation. PAST MEDICAL HISTORY: Significant for diabetes mellitus, insulin dependent, hypertension, thyroid disease, high cholesterol, kidney cancer. PAST SURGICAL HISTORY: Significant for appendectomy and hernia repair as well as a left nephrectomy in June of 2018 for kidney cancer. ALLERGIES: No known drug allergies. MEDICATIONS: Patient takes at home include aspirin 81 mg daily, Coreg 6.25 mg p.o. b.i.d., hydrochlorothiazide 25 mg p.o. daily, Zocor 40 mg p.o. q.h.s., vitamin D3 one thousand units p.o. daily, NovoLog as directed t.i.d. before meals, lisinopril 40 mg p.o. b.i.d, Tresiba 65 units q.h.s., Synthroid 175 mcg p.o. daily and Flomax 0.4 mg p.o. q.h.s. SOCIAL HISTORY: Patient does have a past history of smoking, quit 20 years ago. Prior to that smoked a pack and half for approximately 30 years. Drinks alcohol only on occasion. Denies any illicit drug use. 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 FAMILY HISTORY: Noncontributory. REVIEW OF SYSTEMS: GENERAL: Negative for any fever or chills. Negative for weakness. HEENT: Negative for any headaches or dizziness. Patient denies any acute visual changes. Denies history of seasonal allergies, although does say that maybe it is starting as he has gotten older. Denies any nosebleeds. RESPIRATORY: Positive for shortness of breath and congestion. Not coughing anything up. CARDIOVASCULAR: Negative for any chest pain or palpitations. GI: Negative for abdominal pain, nausea, vomiting, diarrhea, or constipation. : Negative for any dysuria or hematuria. ENDOCRINE: Positive for diabetes mellitus and thyroid disease. NEUROLOGIC: Negative for any history of seizures or numbness. PSYCHIATRIC: Negative for anxiety or depression. PHYSICAL EXAM: VITAL SIGNS: Temperature is 97.7, heart rate is 90, respiratory rate is 18, blood pressure is 141/71, O2 SATs 96% on room air. HEENT. Head is normocephalic, atraumatic. Pupils equal, round, react to light. Ears and nose, no discharge is noted. Mouth with moist mucous membranes. Mallampati class 2. NECK: Supple. Trachea is midline. No lymphadenopathy. HEART: S1, S2 are heard. Not tachycardic. LUNGS: With good air entry bilaterally. No clear rales or wheezes. ABDOMEN: Soft. Bowel sounds are positive. EXTREMITIES: With trace to 1+ edema bilaterally. NEUROLOGIC: Patient is awake and alert, oriented. LABS: White count 11.7, hemoglobin is 13.6, hematocrit 40.2 with 208,000 platelets, sodium is 137, potassium is 4.5, chloride is 107, CO2 is 21, anion gap is 9, BUN is 48, creatinine is 2.08, glucose is 196, calcium is 9, total bilirubin 0.3, AST 22, ALT 33, alk phos 103. Troponins less than 0.012. Total protein 6.0, albumin is 3.7. PT is 10.0, INR 0.9 with a PTT of 23.5. Chest x-ray shows no active cardiopulmonary disease, normal heart. IMPRESSION: 1. Acute exacerbation of chronic obstructive pulmonary disease and suspected asthma. 2. Possible acute renal failure as patient does have history of left nephrectomy and diabetes mellitus. PLAN: Agree with bronchodilators and aerosol steroids. Agree with systemic steroids. The plan is for patient to discharge home later today and patient has been advised to follow up in the Pulmonary office this week where patient will have further workup including pulmonary function test and labs for asthma workup have been ordered from the ER blood product. Thank you for the consultation. MMODL / IJN: [id number] /
[2018-12-30] MEDS ORDERED: CARVEDILOL 6.25 MG TAB PO SCH (17:30)
[2018-12-30] MEDS ORDERED: TAMSULOSIN 0.4 MG CAP.ER.24H PO SCH (21:00)
[2018-12-30] MEDS ORDERED: INSULIN DETEMIR (LEVEMIR) 100 UNIT/ML SYR SQ SCH (21:00)
[2018-12-30] MEDS ORDERED: ATORVASTATIN 20 MG TAB PO SCH (21:00)
[2018-12-31] MEDS ORDERED: LEVOTHYROXINE 100 MCG TAB PO SCH (06:30)
[2018-12-31] MEDS ORDERED: INSULIN ASPART (NovoLOG) 100 UNIT/ML VIAL SQ SCH (07:30)
[2018-12-31] MEDS ORDERED: predniSONE 20 MG TAB PO SCH (09:00)
[2018-12-31] MEDS ORDERED: ASPIRIN 81 MG PO SCH (09:00)
== END 2018-12-30 15:38 | disposition home or self-care (01) ==
LOC: EC 18:48 → 4MS4W 22:54
PROVIDERS: ADMIT Internal Medicine; ATTEND Internal Medicine
DX: J44.1 Chronic obstructive pulmonary disease with (acute) exacerbation (principal); I12.9 Hypertensive chronic kidney disease with stage 1 through stage 4 chronic kidney disease, or unspecified chronic kidney disease; N18.9 Chronic kidney disease, unspecified; E11.22 Type 2 diabetes mellitus with diabetic chronic kidney disease; E03.9 Hypothyroidism, unspecified; E78.00 Pure hypercholesterolemia, unspecified; Z79.82 Long term (current) use of aspirin; Z79.4 Long term (current) use of insulin; Z79.890 Hormone replacement therapy; Z79.899 Other long term (current) drug therapy; Z90.49 Acquired absence of other specified parts of digestive tract; Z87.891 Personal history of nicotine dependence; Z85.528 Personal history of other malignant neoplasm of kidney; Z90.5 Acquired absence of kidney; Z82.49 Family history of ischemic heart disease and other diseases of the circulatory system; Z83.3 Family history of diabetes mellitus; Z80.9 Family history of malignant neoplasm, unspecified
CPT/HCPCS: 96376; 96361; 96374; 99285; 36415; 94640 ×4; 94760; 93005; 80053; 84484; 85025; 85610; 85730; 82103; 71046; G0378 ×2; J2930 ×2

== ENCOUNTER 2019-01-07 20:58 | Inpatient (IN) | payer MEDICARE, BC ==
--- NOTE | 2019-01-07 21:31 | ED ---
General Adult HPI - General Chief complaint: Shortness of Breath Stated complaint: SOB-revisit Time Seen by Provider: 01/07/19 21:06 Source: patient Mode of arrival: ambulatory Limitations: no limitations - History of Present Illness Initial comments: Dictation was produced using [employer] dictation software. please excuse any grammatical, word or spelling errors. Chief Complaint: 68-year-old male multiple comorbidities presents with acute episode of dyspnea. History of Present Illness: 28-year-old male he denies any history of COPD or asthma. Patient states that he is recently been treated for bronchitis multiple occasions. Patient has no history of asthma or COPD. However there are CT imaging that shows that patient has findings of emphysema on CTs from last year. Patient states that he's been treated to transfer bronchitis. He was at home is usual state of health when he began feeling short of breath. She called his film washer is was told to take 40 mg of prednisone and to use his rescue inhaler. He took also Mucinex. After several minutes patient's symptoms abated. Patient currently feels well at the moment. Denies any lower extremity symptoms. No history of deep venous thrombosis or pulmonary embolus. Patient denies any constitutional symptoms. The ROS documented in this emergency department record has been reviewed and confirmed by me. Those systems with pertinent positive or negative responses have been documented in the HPI. All other systems are other negative and/or noncontributory. PHYSICAL EXAM: General Impression: Alert and oriented x3, not in acute distress HEENT: Normocephalic atraumatic, extra-ocular movements intact, pupils equal and reactive to light bilaterally, mucous membranes moist. Cardiovascular: Heart regular rate and rhythm, S1&S2 audible, no murmurs, rubs or gallops Chest: Lungs clear to auscultation bilaterally, no rhonchi, no wheeze, no rales Abdomen: Bowel sounds present, abdomen soft, non-tender, non-distended, no organomegaly Musculoskeletal: Pulses present and equal in all extremities, no peripheral edema Motor: no focal deficits noted Neurological: CN II-XII grossly intact, no focal motor or sensory deficits noted Skin: Intact with no visualized rashes Psych: Normal affect and mood ED course: 68-year-old male with radiographic evidence of chronic obstructive pulmonary disease presents with acute episode of dyspnea. Poor set his symptoms improved after rescue measures. He took 40 of prednisone and use his rescue inhaler with dramatic improvement of his symptoms. Patient is well-appearing at this time. He denies any symptoms currently. Laboratory evaluation obtained. Patient is leukocytosis of 11.3. This is likely secondary to steroids. Metabolic panel shows mild gap acidosis with a carbon dioxide of 18. Patient's creatinine is elevated at 2.18 BUN is 50. Patient states he's been paying more than usual. His polydipsia recently started especially when he began treatment for acute bronchitis. Patient's creatinine is elevated at 2.18 with a BUN of 50. His concerns of prerenal azotemia. Glucose 204. Patient had a 1.6 creatinine 6 days ago. He is notified of these results at that there concerning for acute kidney injury. Patient given intravenous fluids. Patient not showing signs of respiratory distress. Chest x-ray is nonacute. Patient clear for discharge. He is told to maintain good hydration and will have adequate control of sugars. He has an appointment with his film washer tomorrow. Patient given 3 days of 40 mg of prednisone. He took 40 mg today. We will provide 3 days of 40 mg prednisone for steroid burst. EKG interpretation: Ventricular rate 66, normal sinus rhythm,. Interval 180, care is 120, QTC 46. No OK prolongation, no QTC prolongation, no ST or T-wave changes noted. EKG compared to 12/29/2018 showing no changes. Overall, this EKG is unremarkable - Related Data Home Medications Medication Instructions Recorded Confirmed Aspirin 81 mg PO DAILY 05/26/15 01/07/19 Carvedilol [Coreg] 6.25 mg PO BID 05/26/15 01/07/19 Simvastatin [Zocor] 40 mg PO HS 05/26/15 01/07/19 Cholecalciferol [Vitamin D3 (25 1,000 unit PO DAILY 08/07/17 01/07/19 Mcg = 1000 Iu)] INSULIN ASPART (NovoLOG) [NovoLOG See Protocol SQ AC-TID 08/07/17 01/07/19 (formulary)] Insulin Degludec [Tresiba 65 units SQ HS 12/29/18 01/07/19 Flextouch U-100] Levothyroxine Sodium [Synthroid] 175 mcg PO DAILY 12/29/18 01/07/19 Tamsulosin HCl [Flomax] 0.4 mg PO HS 12/29/18 01/07/19 INSULIN ASPART (NovoLOG) [NovoLOG 18 unit SQ AC-BRKFST 12/30/18 01/07/19 (formulary)] INSULIN ASPART (NovoLOG) [NovoLOG 20 units SQ AC-LUNCH 12/30/18 01/07/19 (formulary)] INSULIN ASPART (NovoLOG) [NovoLOG 22 units SQ AC-SUPPER 12/30/18 01/07/19 (formulary)] Thiamine HCl [Vitamin B-1] 100 mg PO DAILY 12/30/18 01/07/19 Albuterol Inhaler [Ventolin Hfa 1 - 2 puff INHALATION RT-Q6H PRN 01/07/19 01/07/19 Inhaler] Budesonide-Formot 160-4.5 Mcg 2 puff INHALATION RT-BID 01/07/19 01/07/19 [Symbicort 160-4.5 Mcg Inhaler] Tiotropium [place] [Spiriva] 1 cap INHALATION RT-DAILY 01/07/19 01/07/19 predniSONE See Taper PO DAILY 01/07/19 01/07/19 Previous Rx's Medication Instructions Recorded Lisinopril 40 mg PO DAILY #0 12/30/18 predniSONE 40 mg PO DAILY 3 Days #6 tab 01/07/19 Allergies Allergy/AdvReac Type Severity Reaction Status Date / Time No Known Allergies Allergy Verified 01/07/19 21:50 Review of Systems ROS Statement: Those systems with pertinent positive or pertinent negative responses have been documented in the HPI. ROS Other: All systems not noted in ROS Statement are negative. Past Medical History Past Medical History: Diabetes Mellitus, Hypertension, Thyroid Disorder History of Any Multi-Drug Resistant Organisms: None Reported Past Surgical History: Appendectomy, Hernia Repair Additional Past Surgical History / Comment(s): left kidney removal secondary to cancer Past Anesthesia/Blood Transfusion Reactions: No Reported Reaction Past Psychological History: No Psychological Hx Reported Smoking Status: Former smoker Past Alcohol Use History: Occasional Past Drug Use History: None Reported - Past Family History Mother Family Medical History: Myocardial Infarction ([place]) Additional Family Medical History / Comment(s): maternal grandmother had diabetes Sister(s) Family Medical History: Cancer General Exam Limitations: no limitations Course Vital Signs 01/07/19 01/07/19 01/07/19 21:01 21:30 21:51 Temperature 98.0 F Pulse Rate 70 Respiratory 22 22 22 Rate Blood Pressure 169/89 O2 Sat by Pulse 99 98 Oximetry Medical Decision Making - Lab Data Result diagrams: 01/07/19 21:15 01/07/19 21:15 Lab Results 01/07/19 01/07/19 Range/Units 21:15 21:15 WBC 11.3 H (3.8-10.6) k/uL RBC 4.66 (4.30-5.90) m/uL Hgb 14.0 (13.0-17.5) gm/dL Hct 41.1 (39.0-53.0) % MCV 88.3 (80.0-100.0) fL MCH 30.0 (25.0-35.0) pg MCHC 33.9 (31.0-37.0) g/dL RDW 14.1 (11.5-15.5) % Plt Count 202 (150-450) k/uL Neutrophils % 83 % Lymphocytes % 9 % Monocytes % 6 % Eosinophils % 1 % Basophils % 0 % Neutrophils # 9.4 H (1.3-7.7) k/uL Lymphocytes # 1.1 (1.0-4.8) k/uL Monocytes # 0.7 (0-1.0) k/uL Eosinophils # 0.1 (0-0.7) k/uL Basophils # 0.0 (0-0.2) k/uL Sodium 137 (137-145) mmol/L Potassium 4.3 (3.5-5.1) mmol/L Chloride 107 (98-107) mmol/L Carbon Dioxide 18 L (22-30) mmol/L Anion Gap 12 mmol/L BUN 50 H (9-20) mg/dL Creatinine 2.18 H (0.66-1.25) mg/dL Est GFR (CKD-EPI)AfAm 34 (>60 ml/min/1.73 sqM) Est GFR (CKD-EPI)NonAf 30 (>60 ml/min/1.73 sqM) Glucose 204 H (74-99) mg/dL Calcium 9.3 (8.4-10.2) mg/dL Total Bilirubin 0.3 (0.2-1.3) mg/dL AST 22 (17-59) U/L ALT 38 (21-72) U/L Alkaline Phosphatase 75 (38-126) U/L Total Protein 6.3 (6.3-8.2) g/dL Albumin 4.0 (3.5-5.0) g/dL Disposition Clinical Impression: AGNES (acute kidney injury), Dyspnea Disposition: HOME SELF-CARE Condition: Good Instructions (If sedation given, give patient instructions): Acute Kidney Injury (DC), Acute Bronchitis (ED) Prescriptions: predniSONE 40 mg PO DAILY 3 Days #6 tab Is patient prescribed a controlled substance at d/c from ED?: No Referrals: Dell Merino DO [Primary Care Provider] - 1-2 days Time of Disposition: 22:35
[2019-01-07 21:34] LABS: Basophils % (A) 0 %; Eosinophils # (A) 0.1 k/uL (0-0.7); Eosinophils % (A) 1 %; HCT 41.1 % (39.0-53.0); Lymphocytes # (A) 1.1 k/uL (1.0-4.8); Lymphocytes % (A) 9 %; MCHC 33.9 g/dL (31.0-37.0); MCV 88.3 fL (80.0-100.0); Mean Platelet Volume 8.2; Monocytes # (A) 0.7 k/uL (0-1.0); Monocytes % (A) 6 %; Neutrophils # (A) 9.4 k/uL (1.3-7.7); Neutrophils % (A) 83 %; Platelet Count 202 k/uL (150-450); RBC 4.66 m/uL (4.30-5.90); RDW 14.1 % (11.5-15.5); WBC 11.3 k/uL (3.8-10.6)
[2019-01-07 21:44] LABS: Calcium 9.3 mg/dL (8.4-10.2); Potassium 4.3 mmol/L (3.5-5.1); Total Bilirubin 0.3 mg/dL (0.2-1.3); Total Protein 6.3 g/dL (6.3-8.2)
--- NOTE | 2019-01-07 22:07 | XR ---
EXAMINATION: XR chest 2V DATE AND TIME: 01/07/2019 9:56 PM CLINICAL INDICATION: PHH; difficulty breathing TECHNIQUE: Departmental protocol COMPARISON: 12/29/2018 FINDINGS: The lungs are clear. The pleural spaces are negative. The cardiac silhouette is borderline enlarged. The prominent thoracic aortic tortuosity is redemonstr ated. The skeletal structures and soft tissues are negative for acute findings. IMPRESSION: NO ACUTE PROCESS.
[2019-01-07] MEDS ORDERED: SODIUM CHLORIDE 0.9% 1,000 ML IV STA (22:18)
[2019-01-08] MEDS ORDERED: NALOXONE 0.4 MG/ML 1 ML VIAL IV PRN (00:54)
[2019-01-08] MEDS ORDERED: ACETAMINOPHEN TAB 325 MG TAB PO PRN (00:54)
[2019-01-08] MEDS ORDERED: SODIUM CHLORIDE 0.9% 1,000 ML IV STA (01:01)
[2019-01-08] MEDS: SODIUM CHLORIDE 0.9% 1,000 ML IV SCH ×2 (01:35→11:19)
--- NOTE | 2019-01-08 09:41 | P.CNPUL ---
History of Present Illness Consult date: 01/08/19 Reason for consult: dyspnea, cough Chief complaint: Shortness of breath and cough History of present illness: This is a 68-year-old male with the history of remote smoking patient has no history of COPD asthma according to him but has episodes of bronchitis last episode was one week ago he was treated with oral antibiotics and prednisone felt better then has to relapse 2 days prior to coming into the hospital the [facility] was called after taking prednisone he felt better for a day then started having symptoms again, his x-rays unremarkable, he felt better after getting IV steroids and rehydration currently he is hospitalized at this time he has fine expiratory wheezing is prior medical history significant for dyslipidemia hypertension diabetes mellitus insulin-requiring he has taken in the past Symbicort and Advair lately has not been taking them, and denies any chest pain denies any present shortness of breath, denies any hemoptysis Review of Systems All systems: negative Past Medical History Past Medical History: Diabetes Mellitus, Hypertension, Thyroid Disorder History of Any Multi-Drug Resistant Organisms: None Reported Past Surgical History: Appendectomy, Hernia Repair Additional Past Surgical History / Comment(s): left kidney removal secondary to cancer Past Anesthesia/Blood Transfusion Reactions: No Reported Reaction Past Psychological History: No Psychological Hx Reported Smoking Status: Former smoker Past Alcohol Use History: Occasional Past Drug Use History: None Reported - Past Family History Mother Family Medical History: Myocardial Infarction ([place]) Additional Family Medical History / Comment(s): maternal grandmother had diabetes Sister(s) Family Medical History: Cancer Medications and Allergies Home Medications Medication Instructions Recorded Confirmed Type Aspirin 81 mg PO DAILY 05/26/15 01/07/19 History Carvedilol [Coreg] 6.25 mg PO BID 05/26/15 01/07/19 History Simvastatin [Zocor] 40 mg PO HS 05/26/15 01/07/19 History Cholecalciferol [Vitamin D3 (25 1,000 unit PO DAILY 08/07/17 01/07/19 History Mcg = 1000 Iu)] INSULIN ASPART (NovoLOG) [NovoLOG See Protocol SQ AC-TID 08/07/17 01/07/19 History (formulary)] Insulin Degludec [Tresiba 65 units SQ HS 12/29/18 01/07/19 History Flextouch U-100] Levothyroxine Sodium [Synthroid] 175 mcg PO DAILY 12/29/18 01/07/19 History Tamsulosin HCl [Flomax] 0.4 mg PO HS 12/29/18 01/07/19 History INSULIN ASPART (NovoLOG) [NovoLOG 18 unit SQ AC-BRKFST 12/30/18 01/07/19 History (formulary)] INSULIN ASPART (NovoLOG) [NovoLOG 20 units SQ AC-LUNCH 12/30/18 01/07/19 History (formulary)] INSULIN ASPART (NovoLOG) [NovoLOG 22 units SQ AC-SUPPER 12/30/18 01/07/19 History (formulary)] Lisinopril 40 mg PO DAILY #0 12/30/18 01/07/19 Rx Thiamine HCl [Vitamin B-1] 100 mg PO DAILY 12/30/18 01/07/19 History Albuterol Inhaler [Ventolin Hfa 1 - 2 puff INHALATION RT-Q6H PRN 01/07/19 01/07/19 History Inhaler] Budesonide-Formot 160-4.5 Mcg 2 puff INHALATION RT-BID 01/07/19 01/07/19 History [Symbicort 160-4.5 Mcg Inhaler] Tiotropium [place] [Spiriva] 1 cap INHALATION RT-DAILY 01/07/19 01/07/19 History predniSONE 40 mg PO DAILY 3 Days #6 tab 01/07/19 Rx predniSONE See Taper PO DAILY 01/07/19 01/07/19 History Allergies Allergy/AdvReac Type Severity Reaction Status Date / Time No Known Allergies Allergy Verified 01/07/19 21:50 Physical Exam Vitals: Vital Signs Temp Pulse Pulse Resp BP BP Pulse Ox 01/08/19 07:00 97.8 F 76 17 116/56 97 01/08/19 01:42 98 F 57 L 18 98/86 97 01/08/19 01:17 97.9 F 55 L 17 133/76 97 01/07/19 23:46 98.1 F 60 22 98 01/07/19 22:34 97.9 F 63 20 143/83 97 01/07/19 21:51 22 98 01/07/19 21:30 22 01/07/19 21:01 98.0 F 70 22 169/89 99 Intake and Output 01/07/19 01/08/19 01/08/19 22:59 06:59 14:59 Intake Total 480 100 Balance 480 100 Intake: Oral 480 100 Other: Voiding Method Toilet # Voids 2 Weight 113.398 kg - Constitutional General appearance: average body habitus, cooperative, disheveled - EENT Eyes: anicteric sclerae, EOMI, PERRLA Ears: bilateral: normal - Neck Neck: normal ROM Carotids: bilateral: upstroke normal Thyroid: bilateral: normal size - Respiratory Respiratory: bilateral: wheezing (Fine expiratory), prolonged expiration, negative: CTA, diminished, dullness, rales, rhonchi - Cardiovascular Rhythm: regular Heart sounds: normal: S1, S2 - Gastrointestinal General gastrointestinal: normal bowel sounds, soft - Integumentary Integumentary: normal, normal turgor - Neurologic Neurologic: CNII-XII intact - Musculoskeletal Musculoskeletal: gait normal, generalized weakness, strength equal bilaterally - Psychiatric Psychiatric: A&O x's 3, appropriate affect, intact judgment & insight Results - Laboratory Findings CBC and BMP: 01/07/19 21:15 01/07/19 21:15 PT/INR, D-dimer D-Dimer 0.28 mg/L FEU (<0.60) 01/08/19 00:05 Abnormal lab findings: Abnormal Labs 01/07/19 01/07/19 21:15 21:15 WBC 11.3 H Neutrophils # 9.4 H Carbon Dioxide 18 L BUN 50 H Creatinine 2.18 H Glucose 204 H - Diagnostic Findings Chest x-ray: report reviewed, image reviewed (Finding as above however x-ray suggestive of COPD or emphysema) Assessment and Plan Assessment: Acute COPD exacerbation Acute asthma exacerbation with baseline chronic intermittent asthma Hypertension hypertensive cardiovascular disease Dyslipidemia Insulin requiring diabetes mellitus Obesity Plan: Bronchodilator IV steroids Oral antibiotics doxycycline Continue home medications Monitor sugar closely Observe closely Other recommendations pending plan of care as per clinical response of the patient Time with Patient: Greater than 30
[2019-01-08] MEDS: IPRATROPIUM-ALBUTEROL 3 ML NEB INHALATION SCH ×3 (11:10→19:53)
[2019-01-08] MEDS: DOXYCYCLINE 100 MG CAP PO SCH ×2 (11:19→20:23)
[2019-01-08] MEDS: methylPREDNISolone SOD SUCCI 40 MG/ML 1 ML VIAL IV SCH ×2 (11:19→20:22)
[2019-01-08 12:28] LABS: Glucose,Whole Blood 196 mg/dL (75-99)
[2019-01-08] MEDS: INSULIN ASPART (NovoLOG) 100 UNIT/ML VIAL SQ SCH ×2 (12:38→17:33)
--- NOTE | 2019-01-08 12:42 | P.NPCON ---
History of Present Illness - Reason for Consult acute renal failure - History of Present Illness Reason for consultation: Acute kidney injury History of present illness: Patient is a 68-year-old male seen in renal consultation for acute kidney injury. Patient's creatinine on admission was 2.18. Last from today are pending. Patient's creatinine on 01/01/2019 was 1.6. Patient has history of renal cell carcinoma and underwent left-sided nephrectomy in June 2018 at [facility]. He presented to the hospital this admission with dyspnea. Patient states he's been recovering from bronchitis. Patient states he received a breathing treatment this morning and feels much better. No edema. Good urine output. No vomiting or diarrhea. No chest pain. Denies use of nonsteroidals. No family history of renal disease. He does take lisinopril at home. He also has long-standing history of diabetes mellitus. Patient states he was diagnosed over 10 years ago. Hemodynamically stable. Vital signs are stable. General: The patient appeared well nourished and normally developed. HEENT: Head exam is unremarkable. Neck is without jugular venous distension. LUNGS: Lungs are clear to auscultation and percussion. Breath sounds decreased. HEART: Rate and Rhythm are regular. First and second heart sounds normal. No murmurs, rubs or gallops. ABDOMEN: Abdominal exam reveals normal bowel sounds. Non-tender and non- distended. No evidence of peritonitis. EXTREMITITES: No clubbing, cyanosis, or edema. Past Medical History Past Medical History: Diabetes Mellitus, Hypertension, Thyroid Disorder History of Any Multi-Drug Resistant Organisms: None Reported Past Surgical History: Appendectomy, Hernia Repair Additional Past Surgical History / Comment(s): left kidney removal secondary to cancer Past Anesthesia/Blood Transfusion Reactions: No Reported Reaction Past Psychological History: No Psychological Hx Reported Smoking Status: Former smoker Past Alcohol Use History: Occasional Past Drug Use History: None Reported - Past Family History Mother Family Medical History: Myocardial Infarction ([place]) Additional Family Medical History / Comment(s): maternal grandmother had diabetes Sister(s) Family Medical History: Cancer Medications and Allergies Home Medications Medication Instructions Recorded Confirmed Type Aspirin 81 mg PO DAILY 05/26/15 01/07/19 History Carvedilol [Coreg] 6.25 mg PO BID 05/26/15 01/07/19 History Simvastatin [Zocor] 40 mg PO HS 05/26/15 01/07/19 History Cholecalciferol [Vitamin D3 (25 1,000 unit PO DAILY 08/07/17 01/07/19 History Mcg = 1000 Iu)] INSULIN ASPART (NovoLOG) [NovoLOG See Protocol SQ AC-TID 08/07/17 01/07/19 History (formulary)] Insulin Degludec [Tresiba 65 units SQ HS 12/29/18 01/07/19 History Flextouch U-100] Levothyroxine Sodium [Synthroid] 175 mcg PO DAILY 12/29/18 01/07/19 History Tamsulosin HCl [Flomax] 0.4 mg PO HS 12/29/18 01/07/19 History INSULIN ASPART (NovoLOG) [NovoLOG 18 unit SQ AC-BRKFST 12/30/18 01/07/19 History (formulary)] INSULIN ASPART (NovoLOG) [NovoLOG 20 units SQ AC-LUNCH 12/30/18 01/07/19 History (formulary)] INSULIN ASPART (NovoLOG) [NovoLOG 22 units SQ AC-SUPPER 12/30/18 01/07/19 History (formulary)] Lisinopril 40 mg PO DAILY #0 12/30/18 01/07/19 Rx Thiamine HCl [Vitamin B-1] 100 mg PO DAILY 12/30/18 01/07/19 History Albuterol Inhaler [Ventolin Hfa 1 - 2 puff INHALATION RT-Q6H PRN 01/07/19 01/07/19 History Inhaler] Budesonide-Formot 160-4.5 Mcg 2 puff INHALATION RT-BID 01/07/19 01/07/19 History [Symbicort 160-4.5 Mcg Inhaler] Tiotropium [place] [Spiriva] 1 cap INHALATION RT-DAILY 01/07/19 01/07/19 History predniSONE 40 mg PO DAILY 3 Days #6 tab 01/07/19 Rx predniSONE See Taper PO DAILY 01/07/19 01/07/19 History Allergies Allergy/AdvReac Type Severity Reaction Status Date / Time No Known Allergies Allergy Verified 01/07/19 21:50 Physical Exam Vitals: Vital Signs Temp Pulse Pulse Resp BP BP Pulse Ox 01/08/19 11:22 76 01/08/19 11:14 72 01/08/19 07:00 97.8 F 76 17 116/56 97 01/08/19 01:42 98 F 57 L 18 98/86 97 01/08/19 01:17 97.9 F 55 L 17 133/76 97 01/07/19 23:46 98.1 F 60 22 98 01/07/19 22:34 97.9 F 63 20 143/83 97 01/07/19 21:51 22 98 01/07/19 21:30 22 01/07/19 21:01 98.0 F 70 22 169/89 99 Intake and Output 01/07/19 01/08/19 01/08/19 22:59 06:59 14:59 Intake Total 480 100 Balance 480 100 Intake: Oral 480 100 Other: Voiding Method Toilet # Voids 2 Weight 113.398 kg Results - Lab Results Most recent lab results Calcium 9.3 mg/dL (8.4-10.2) 01/07/19 21:15 01/07/19 21:15 01/07/19 21:15 Assessment and Plan Plan: Assessment: 1. Acute kidney injury mostly prerenal and further worsened with the use of lisinopril. Creatinine 2.18 on admission. Need to establish baseline renal function after his nephrectomy. However his creatinine on January 01 was 1.6. 2. Renal cell carcinoma status post left nephrectomy in June 2018. 3. Benign hypertension. Controlled. 4. Metabolic acidosis secondary to acute kidney injury and IV fluids. 5. Dyspnea secondary to COPD exacerbation. 6. Insulin-dependent diabetes mellitus. Plan: I would decrease normal saline to 50 mL an hour. Check bladder scan to rule out urinary retention. Check urinalysis. Check renal ultrasound. Hold lisinopril. Repeat electrolytes in the morning. Thank you for the consultation. I will continue to follow the patient with you during his hospital stay.
--- NOTE | 2019-01-08 14:01 | P.HPIM ---
History of Present Illness This is a pleasant 68 years old female with past medical history of type 2 diabetes mellitus, hypertension, hypothyroidism, who presents because of dyspnea. of 2 weeks duration, patient went to his medical hysterectomy PCP Dr. Head on prednisone and 5 days of oral antibiotics, he didn't feel well and he can't emergency room 1 week ago and yesterday for the same. He denies coughing or chest pain. At baseline he wants with no difficulty but he has some exertional dyspnea. Patient is not on home oxygen Vitas looks stable. Labs showing mild leukocytosis is 11.3 K. Creatinine elevated at 2.18. Possible baseline is 1.6 after nephrectomy. Liver enzymes not elevated. EKG showing normal sinus rhythm at 64, with no significant ST-T changes. Patient has been evaluated by wealth management consultant and he was started on gentle hydration and also by foxing cutting machine operator. Of note patient is scheduled to have elective hernia surgery for his right side umbilical abdominal hernia on this coming Saturday. Review of Systems CONSTITUTIONAL: No fever, no malaise, no fatigue. HEENT: No recent visual problems or hearing problems. Denied any sore throat. CARDIOVASCULAR: No orthopnea, PND, no palpitations, no syncope. PULMONARY: No shortness of breath, no cough, no hemoptysis. GASTROINTESTINAL: No diarrhea, no nausea, no vomiting, no abdominal pain. Normoactive bowel sounds. NEUROLOGICAL: No headaches, no weakness, no numbness. HEMATOLOGICAL: Denies any bleeding or petechiae. GENITOURINARY: Denies any burning micturition, frequency, or urgency. MUSCULOSKELETAL/RHEUMATOLOGICAL: Denies any joint pain, swelling, or any muscle pain. ENDOCRINE: Denies any polyuria or polydipsia. Past Medical History Past Medical History: Diabetes Mellitus, Hypertension, Thyroid Disorder History of Any Multi-Drug Resistant Organisms: None Reported Past Surgical History: Appendectomy, Hernia Repair Additional Past Surgical History / Comment(s): left kidney removal secondary to cancer Past Anesthesia/Blood Transfusion Reactions: No Reported Reaction Past Psychological History: No Psychological Hx Reported Smoking Status: Former smoker Past Alcohol Use History: Occasional Past Drug Use History: None Reported - Past Family History Mother Family Medical History: Myocardial Infarction ([place]) Additional Family Medical History / Comment(s): maternal grandmother had diabetes Sister(s) Family Medical History: Cancer Medications and Allergies Home Medications Medication Instructions Recorded Confirmed Type Aspirin 81 mg PO DAILY 05/26/15 01/07/19 History Carvedilol [Coreg] 6.25 mg PO BID 05/26/15 01/07/19 History Simvastatin [Zocor] 40 mg PO HS 05/26/15 01/07/19 History Cholecalciferol [Vitamin D3 (25 1,000 unit PO DAILY 08/07/17 01/07/19 History Mcg = 1000 Iu)] INSULIN ASPART (NovoLOG) [NovoLOG See Protocol SQ AC-TID 08/07/17 01/07/19 History (formulary)] Insulin Degludec [Tresiba 65 units SQ HS 12/29/18 01/07/19 History Flextouch U-100] Levothyroxine Sodium [Synthroid] 175 mcg PO DAILY 12/29/18 01/07/19 History Tamsulosin HCl [Flomax] 0.4 mg PO HS 12/29/18 01/07/19 History INSULIN ASPART (NovoLOG) [NovoLOG 18 unit SQ AC-BRKFST 12/30/18 01/07/19 History (formulary)] INSULIN ASPART (NovoLOG) [NovoLOG 20 units SQ AC-LUNCH 12/30/18 01/07/19 History (formulary)] INSULIN ASPART (NovoLOG) [NovoLOG 22 units SQ AC-SUPPER 12/30/18 01/07/19 History (formulary)] Lisinopril 40 mg PO DAILY #0 12/30/18 01/07/19 Rx Thiamine HCl [Vitamin B-1] 100 mg PO DAILY 12/30/18 01/07/19 History Albuterol Inhaler [Ventolin Hfa 1 - 2 puff INHALATION RT-Q6H PRN 01/07/19 01/07/19 History Inhaler] Budesonide-Formot 160-4.5 Mcg 2 puff INHALATION RT-BID 01/07/19 01/07/19 History [Symbicort 160-4.5 Mcg Inhaler] Tiotropium [place] [Spiriva] 1 cap INHALATION RT-DAILY 01/07/19 01/07/19 History predniSONE 40 mg PO DAILY 3 Days #6 tab 01/07/19 Rx predniSONE See Taper PO DAILY 01/07/19 01/07/19 History Allergies Allergy/AdvReac Type Severity Reaction Status Date / Time No Known Allergies Allergy Verified 01/07/19 21:50 Physical Exam Vitals: Vital Signs Temp Pulse Pulse Resp BP BP Pulse Ox 01/08/19 11:22 76 01/08/19 11:14 72 01/08/19 07:00 97.8 F 76 17 116/56 97 01/08/19 01:42 98 F 57 L 18 98/86 97 01/08/19 01:17 97.9 F 55 L 17 133/76 97 01/07/19 23:46 98.1 F 60 22 98 01/07/19 22:34 97.9 F 63 20 143/83 97 01/07/19 21:51 22 98 01/07/19 21:30 22 01/07/19 21:01 98.0 F 70 22 169/89 99 Intake and Output 01/07/19 01/08/19 01/08/19 22:59 06:59 14:59 Intake Total 480 100 Balance 480 100 Intake: Oral 480 100 Other: Voiding Method Toilet # Voids 2 3 Weight 113.398 kg GENERAL: The patient is alert and oriented x3, not in any acute distress. Well developed, well nourished. HEENT: Pupils are round and equally reacting to light. EOMI. No scleral icterus. No conjunctival pallor. Normocephalic, atraumatic. No pharyngeal erythema. No thyromegaly. CARDIOVASCULAR: S1 and S2 present. No murmurs, rubs, or gallops. PULMONARY: Chest is clear to auscultation, bilateral scattered wheezing ABDOMEN: Soft, nontender, nondistended, normoactive bowel sounds. No palpable organomegaly. MUSCULOSKELETAL: No joint swelling or deformity. EXTREMITIES: No cyanosis, clubbing, or pedal edema. NEUROLOGICAL: Gross neurological examination did not reveal any focal deficits. SKIN: No rashes. Results CBC & Chem 7: 01/07/19 21:15 01/07/19 21:15 Labs: Abnormal Lab Results - Last 24 Hours (Table) 01/07/19 01/07/19 01/08/19 Range/Units 21:15 21:15 12:17 WBC 11.3 H (3.8-10.6) k/uL Neutrophils # 9.4 H (1.3-7.7) k/uL Carbon Dioxide 18 L (22-30) mmol/L BUN 50 H (9-20) mg/dL Creatinine 2.18 H (0.66-1.25) mg/dL Glucose 204 H (74-99) mg/dL POC Glucose (mg/dL) 196 H (75-99) mg/dL Thrombosis Risk Factor Assmnt - Choose All That Apply Each Risk Factor Represents 2 Points: Age 61-74 years Thrombosis Risk Factor Assessment Total Risk Factor Score: 2 Thrombosis Risk Factor Assessment Level: Low Risk Assessment and Plan Assessment: Acute kidney injury, mostly prerenal Acute COPD exacerbation History of left renal cell carcinoma status post nephrectomy in 06/2018 Type 2 diabetes mellitus Essential hypertension Hypothyroidism Plan: This is a pleasant 68 years old male who presents with acute kidney injury and COPD. Continue with oxygen, antibiotics, broncho-dilator. Continue with gentle hydration. Follow-up pulmonary and nephrology recommendation. Hold lisinopril and Coreg and monitor blood pressure Labs and medication were reviewed.. Continue same treatment. Continue with symptomatic treatment. Resume home medication. Monitor lytes and vitals. DVT and GI prophylaxis. Further recommendations of the clinical course of the patient DVT prophylaxis: Subcutaneous heparin GI Prophylaxis: Pepcid PT/OT: Pending Prognosis is guarded
--- NOTE | 2019-01-08 14:26 | US ---
EXAMINATION TYPE: US kidneys/renal and bladder DATE OF EXAM: 01/08/2019 COMPARISON: CT 2018 CLINICAL HISTORY: agnes. AGNES, history renal CA, left nephrectomy June 2018 EXAM MEASUREMENTS: Right Kidney: 13.0 x 6.1 x 5.1 cm Left Kidney: surgically absent Right Kidney: 2.6 x 2.4 x 2.2cm cystic area lateral mid pole, 2.9 x 2.6 x 2.4cm complex cystic area i nferior pole Left renal fossa: appears wnl Bladder: wnl Bilateral Jets seen: No Technologist identifies 2.4 cm simple appearing cyst laterally midpole right kidney and 2.6 cm nonsim ple cyst lower pole of the right kidney. Lesions likely correlate with series 10 image [address] Additional smaller lesions throughout the right kidney on CT are not clearly seen on ultra sound today. The lower pole lesion shows internal hyperechoic material slightly nodular, there is sug gestion of some calcification prior exam coronal series 4 image 74 but because of nonsimple appearanc e and possible change from CT, further workup advised. IMPRESSION: Nonsimple 2.6 cm cyst or cystic lesion lower pole of the right kidney, cannot exclude new thickened septa or nodularity from prior CT. Advise further workup with multiphase renal protocol CT or MRI.
[2019-01-08] MEDS: FAMOTIDINE 20 MG/2 ML VIAL IV SCH (15:13)
[2019-01-08 15:53] LABS: Appearance,Urine Clear (Clear); Bilirubin,Urine Negative (Negative); Blood,Urine Negative (Negative); Color,Urine Colorless; Glucose,Urine (UA) Negative (Negative); Ketones,Urine Negative (Negative); Leukocyte Esterase,Urine Negative (Negative); Nitrite,Urine Negative (Negative); PH, Urine 5.5 (5.0-8.0); Protein,Urine Negative (Negative); Specific Gravity,Urine 1.006 (1.001-1.035); Urobilinogen,Urine <2.0 mg/dL (<2.0)
[2019-01-08 16:23] LABS: INR 0.9 (<1.2); Prothrombin Time 10.1 sec (9.0-12.0)
[2019-01-08 16:29] LABS: Partial Thromboplastin Time 20.7 sec (22.0-30.0)
[2019-01-08 17:21] LABS: Glucose,Whole Blood 226 mg/dL (75-99)
[2019-01-08] MEDS ORDERED: CARVEDILOL 6.25 MG TAB PO SCH (17:30)
[2019-01-08] MEDS: BUDESONIDE 0.5 MG/2 ML NEBU INHALATION SCH (19:53)
[2019-01-08] MEDS: HEPARIN SODIUM,PORCINE 5,000 UNIT/ML 1 ML VIAL SQ SCH (20:23)
[2019-01-08 21:09] LABS: Glucose,Whole Blood 227 mg/dL (75-99)
[2019-01-09] MEDS: IPRATROPIUM-ALBUTEROL 3 ML NEB INHALATION SCH ×4 (07:18→21:06)
[2019-01-09] MEDS: BUDESONIDE 0.5 MG/2 ML NEBU INHALATION SCH ×2 (07:18→21:06)
[2019-01-09 07:25] LABS: Glucose,Whole Blood 198 mg/dL (75-99)
[2019-01-09] MEDS: methylPREDNISolone SOD SUCCI 40 MG/ML 1 ML VIAL IV SCH ×2 (07:26→20:13)
[2019-01-09] MEDS: FAMOTIDINE 20 MG/2 ML VIAL IV SCH (07:27)
[2019-01-09] MEDS: DOXYCYCLINE 100 MG CAP PO SCH ×2 (07:27→20:13)
[2019-01-09] MEDS: INSULIN ASPART (NovoLOG) 100 UNIT/ML VIAL SQ SCH ×3 (07:27→16:42)
[2019-01-09] MEDS: CHOLECALCIFEROL 1,000 UNIT TAB PO SCH (07:27)
[2019-01-09] MEDS: HEPARIN SODIUM,PORCINE 5,000 UNIT/ML 1 ML VIAL SQ SCH ×2 (07:27→20:13)
[2019-01-09] MEDS: ASPIRIN 81 MG PO SCH (07:27)
[2019-01-09 10:12] LABS: Calcium 9.5 mg/dL (8.4-10.2); Magnesium 1.8 mg/dL (1.6-2.3)
--- NOTE | 2019-01-09 11:09 | P.PN ---
Subjective Patient is seen in follow-up for acute kidney injury. Patient's creatinine on admission was 2.18 and is down to 1.49 today. Patient has history of renal cell carcinoma and underwent left-sided nephrectomy in June 2018 at [facility]. He is currently maintained on IV fluids. Oral intake is good. No vomiting or diarrhea. Admits to good urine output. No chest pain or shortness of breath. Vital signs are stable. General: The patient appeared well nourished and normally developed. HEENT: Head exam is unremarkable. Neck is without jugular venous distension. LUNGS: Lungs are clear to auscultation and percussion. Breath sounds decreased. HEART: Rate and Rhythm are regular. First and second heart sounds normal. No murmurs, rubs or gallops. ABDOMEN: Abdominal exam reveals normal bowel sounds. Non-tender and non- distended. No evidence of peritonitis. EXTREMITITES: No clubbing, cyanosis, or edema. Objective - Vital Signs Vital signs: Vital Signs Temp 97.9 F 01/09/19 07:00 Pulse 64 01/09/19 07:33 Resp 14 01/09/19 07:00 BP 115/65 01/09/19 07:00 Pulse Ox 96 01/09/19 07:00 Intake & Output 01/08/19 01/09/19 01/09/19 18:59 06:59 18:59 Intake Total 280 20 296 Balance 280 20 296 Intake: Oral 280 20 296 Other: # Voids 3 3 - Labs CBC & Chem 7: 01/07/19 21:15 01/09/19 08:53 Labs: Abnormal Lab Results - Last 24 Hours (Table) 01/08/19 01/08/19 01/08/19 Range/Units 12:17 15:57 17:19 APTT 20.7 L (22.0-30.0) sec Chloride (98-107) mmol/L Carbon Dioxide (22-30) mmol/L BUN (9-20) mg/dL Creatinine (0.66-1.25) mg/dL Glucose (74-99) mg/dL POC Glucose (mg/dL) 196 H 226 H (75-99) mg/dL 01/08/19 01/09/19 01/09/19 Range/Units 21:08 07:24 08:53 APTT (22.0-30.0) sec Chloride 108 H (98-107) mmol/L Carbon Dioxide 20 L (22-30) mmol/L BUN 32 H (9-20) mg/dL Creatinine 1.49 H (0.66-1.25) mg/dL Glucose 262 H (74-99) mg/dL POC Glucose (mg/dL) 227 H 198 H (75-99) mg/dL Assessment and Plan Plan: Assessment: 1. Acute kidney injury mostly prerenal and further worsened with the use of lisinopril. Improved with IV hydration. Creatinine 2.18 on admission and is down to 1.49 today. Need to establish baseline renal function after his nephrectomy. Urinary is benign. No hydronephrosis noted on kidney ultrasound. 2. Renal cell carcinoma status post left nephrectomy in June 2018. 3. Benign hypertension. Controlled. 4. Metabolic acidosis secondary to acute kidney injury and IV fluids. Better. 5. Dyspnea secondary to COPD exacerbation. 6. Insulin-dependent diabetes mellitus. 7. Right kidney cyst. Patient follows with urology out of [facility]. Plan: Maintain normal saline at 50 mL an hour. Hold lisinopril. Repeat electrolytes in the morning. Stable to be discharged home from nephrology standpoint. Follow up outpatient in the next 1-2 weeks.
[2019-01-09 11:40] LABS: Glucose,Whole Blood 182 mg/dL (75-99)
--- NOTE | 2019-01-09 15:47 | P.PN ---
Subjective Progress Note Date: 01/09/19 Principal diagnosis: Acute COPD exacerbation, chronic asthmatic bronchitis with acute exacerbation, hypertension hypertensive cardiovascular disease, dyslipidemia, insulin-requirin g diabetes mellitus, morbid obesity 01/19/2019, patient seen eval examined during the rounds labs reviewed medications reviewed care plan discussed with the patient at length his congestion cough shortness breath is significantly improved, patient likely will be discharged with oral antibiotics and tapering steroids to be a cyst by primary segment block layer as outpatient basis This is a 68-year-old male with the history of remote smoking patient has no history of COPD asthma according to him but has episodes of bronchitis last episode was one week ago he was treated with oral antibiotics and prednisone felt better then has to relapse 2 days prior to coming into the hospital the oral prednisone was called after taking prednisone he felt better for a day then started having symptoms again, his x-rays unremarkable, he felt better after getting IV steroids and rehydration currently he is hospitalized at this time he has fine expiratory wheezing is prior medical history significant for dyslip idemia hypertension diabetes mellitus insulin-requiring he has taken in the past Symbicort and Advair lately has not been taking them, and denies any chest pain denies any present shortness of breath, denies any hemoptysis Objective - Vital Signs Vital signs: Vital Signs Temp 97.9 F 01/09/19 07:00 Pulse 76 01/09/19 11:58 Resp 14 01/09/19 07:00 BP 115/65 01/09/19 07:00 Pulse Ox 96 01/09/19 07:00 Intake & Output 01/08/19 01/09/19 01/09/19 18:59 06:59 18:59 Intake Total 280 20 592 Balance 280 20 592 Intake: Oral 280 20 592 Other: # Voids 3 3 - Exam - Constitutional General appearance: average body habitus, cooperative, disheveled - EENT Eyes: anicteric sclerae, EOMI, PERRLA Ears: bilateral: normal - Neck Neck: normal ROM Carotids: bilateral: upstroke normal Thyroid: bilateral: normal size - Respiratory Respiratory: bilateral: wheezing (Fine expiratory), prolonged expiration, negative: CTA, diminished, dullness, rales, rhonchi - Cardiovascular Rhythm: regular Heart sounds: normal: S1, S2 - Gastrointestinal General gastrointestinal: normal bowel sounds, soft - Integumentary Integumentary: normal, normal turgor - Neurologic Neurologic: CNII-XII intact - Musculoskeletal Musculoskeletal: gait normal, generalized weakness, strength equal bilaterally - Psychiatric Psychiatric: A&O x's 3, appropriate affect, intact judgment & insight - Labs CBC & Chem 7: 01/07/19 21:15 01/09/19 08:53 Labs: Abnormal Lab Results - Last 24 Hours (Table) 01/08/19 01/08/19 01/08/19 Range/Units 15:57 17:19 21:08 APTT 20.7 L (22.0-30.0) sec Chloride (98-107) mmol/L Carbon Dioxide (22-30) mmol/L BUN (9-20) mg/dL Creatinine (0.66-1.25) mg/dL Glucose (74-99) mg/dL POC Glucose (mg/dL) 226 H 227 H (75-99) mg/dL 01/09/19 01/09/19 01/09/19 Range/Units 07:24 08:53 11:38 APTT (22.0-30.0) sec Chloride 108 H (98-107) mmol/L Carbon Dioxide 20 L (22-30) mmol/L BUN 32 H (9-20) mg/dL Creatinine 1.49 H (0.66-1.25) mg/dL Glucose 262 H (74-99) mg/dL POC Glucose (mg/dL) 198 H 182 H (75-99) mg/dL Assessment and Plan Assessment: Acute COPD exacerbation Acute asthma exacerbation with baseline chronic intermittent asthma Hypertension hypertensive cardiovascular disease Dyslipidemia Insulin requiring diabetes mellitus Obesity Plan: Bronchodilator IV steroids can be switched to oral prednisone at the time of discharge Oral antibiotics doxycycline Continue home medications Monitor sugar closely Observe closely Other recommendations pending plan of care as per clinical response of the patient Time with Patient: Greater than 30
[2019-01-09 16:29] LABS: Glucose,Whole Blood 262 mg/dL (75-99)
--- NOTE | 2019-01-09 17:19 | P.PN ---
Subjective Progress Note Date: 01/09/19 Principal diagnosis: Acute exacerbation COPD Acute exacerbation chronic asthmatic bronchitis Acute renal injury 68-year-old male with the history of remote smoking patient has no history of COPD asthma according to him but has episodes of bronchitis last episode was one week ago he was treated with oral antibiotics and prednisone felt better then has to relapse 2 days prior to coming into the hospital the oral prednisone was called after taking prednisone he felt better for a day then started having symptoms again, his x-rays unremarkable, he felt better after getting IV st eroids and rehydration currently he is hospitalized at this time he has fine expiratory wheezing is prior medical history significant for dyslipidemia hypertension diabetes mellitus insulin-requiring he has taken in the past Symbicort and Advair lately has not been taking them, and denies any chest pain denies any present shortness of breath, denies any hemoptysis 01/09/2019 Patient is seen in follow-up for acute kidney injury and acute exacerbation of COPD. Patient's creatinine on admission was 2.18 and is down to 1.49 today. Patient has history of renal cell carcinoma and underwent left-sided nephrectomy in June 2018 at [facility]. He is currently maintained on IV fluids. Oral intake is good. No vomiting or diarrhea. Admits to good urine output. No chest pain or shortness of breath. Pulmonary service is following and recommending to continue with antibiotics and steroids with anticipation of discharge on oral antibiotics and tapering steroids with follow-up with primary digital associate media director as an outpatient Objective - Vital Signs Vital signs: Vital Signs Temp 97.9 F 01/09/19 07:00 Pulse 64 01/09/19 07:33 Resp 14 01/09/19 07:00 BP 115/65 01/09/19 07:00 Pulse Ox 96 01/09/19 07:00 Intake & Output 01/08/19 01/09/19 01/09/19 18:59 06:59 18:59 Intake Total 280 20 296 Balance 280 20 296 Intake: Oral 280 20 296 Other: # Voids 3 3 - Exam - Constitutional General appearance: Present: average body habitus, cooperative, no acute distress - EENT Eyes: Present: anicteric sclerae, EOMI, PERRLA, normal appearance ENT: Present: hearing grossly normal, normal oropharynx Ears: bilateral: normal - Neck Neck: Present: normal ROM. Absent: lymphadenopathy, rigidity, thyromegaly Carotids: negative: bruit present Thyroid: bilateral: normal size, negative: enlarged, nodule - Respiratory Respiratory: bilateral: CTA, negative: rales, rhonchi, wheezing - Cardiovascular Rhythm: regular Heart sounds: normal: S1, S2 Abnormal Heart Sounds: Absent: systolic murmur, diastolic murmur - Gastrointestinal General gastrointestinal: Present: normal bowel sounds, soft. Absent: distended, organomegaly, tenderness - Genitourinary Genitourinary Comment(s): deferred - Integumentary Integumentary: Present: normal turgor. Absent: jaundiced, rash, ulcer - Neurologic Neurologic: Present: CNII-XII intact. Absent: focal deficits - Musculoskeletal Musculoskeletal: Present: gait normal, strength equal bilaterally - Psychiatric Psychiatric: Present: A&O x's 3, appropriate affect, intact judgment & insight - Labs CBC & Chem 7: 01/07/19 21:15 01/09/19 08:53 Labs: Abnormal Lab Results - Last 24 Hours (Table) 01/08/19 01/08/19 01/08/19 Range/Units 12:17 15:57 17:19 APTT 20.7 L (22.0-30.0) sec Chloride (98-107) mmol/L Carbon Dioxide (22-30) mmol/L BUN (9-20) mg/dL Creatinine (0.66-1.25) mg/dL Glucose (74-99) mg/dL POC Glucose (mg/dL) 196 H 226 H (75-99) mg/dL 01/08/19 01/09/19 01/09/19 Range/Units 21:08 07:24 08:53 APTT (22.0-30.0) sec Chloride 108 H (98-107) mmol/L Carbon Dioxide 20 L (22-30) mmol/L BUN 32 H (9-20) mg/dL Creatinine 1.49 H (0.66-1.25) mg/dL Glucose 262 H (74-99) mg/dL POC Glucose (mg/dL) 227 H 198 H (75-99) mg/dL Assessment and Plan Assessment: Acute kidney injury, mostly prerenal Acute COPD exacerbation History of left renal cell carcinoma status post nephrectomy in 06/2018 Type 2 diabetes mellitus Essential hypertension Hypothyroidism Plan: This is a pleasant 68 years old male who presents with acute kidney injury and COPD. Continue with oxygen, antibiotics, broncho-dilator. Continue with gentle hydration. Follow-up pulmonary and nephrology recommendation. Hold lisinopril and Coreg and monitor blood pressure Labs and medication were reviewed.. Continue same treatment. Continue with symptomatic treatment. Resume home medication. Monitor lytes and vitals. DVT and GI prophylaxis. Further recommendations of the clinical course of the patient DVT prophylaxis: Subcutaneous heparin GI Prophylaxis: Pepcid PT/OT: Pending Time with Patient: Greater than 30
[2019-01-09] MEDS: FAMOTIDINE 20 MG TAB PO SCH (20:13)
[2019-01-09 20:24] LABS: Glucose,Whole Blood 190 mg/dL (75-99)
[2019-01-10] MEDS: SODIUM CHLORIDE 0.9% 1,000 ML IV SCH ×2 (02:21→20:07)
[2019-01-10 07:13] LABS: Glucose,Whole Blood 141 mg/dL (75-99)
--- NOTE | 2019-01-10 07:34 | P.PN ---
Subjective Progress Note Date: 01/10/19 Principal diagnosis: This is a 68-year-old male seen with acute kidney injury, deemed to be from prerenal and lisinopril. He came in because of shortness of breath from bronchitis and is significantly improved. Denies any fever chills cough now is not short of breath. Appetite is good. His urine output is about 700-800 mL for each 12 hour shift Patient has history of renal cell carcinoma and underwent left-sided nephrectomy in June 2018 at [facility]. He presented to the hospital this admission with dyspnea. Patient states he's been recovering from bronch itis. Patient states he received a breathing treatment this morning and feels much better. No edema. Good urine output. No vomiting or diarrhea. No chest pain. Denies use of nonsteroidals. No family history of renal disease. He does take lisinopril at home. He also has long-standing history of diabetes mellitus. Patient states he was diagnosed over 10 years ago. Hemodynamically stable. Objective - Vital Signs Vital signs: Vital Signs Temp 98.0 F 01/10/19 01:25 Pulse 76 01/10/19 01:25 Resp 18 01/10/19 01:25 BP 153/79 01/10/19 01:25 Pulse Ox 95 01/10/19 01:25 Intake & Output 01/09/19 01/10/19 01/10/19 18:59 06:59 18:59 Intake Total 888 700 Balance 888 700 Intake: Intake, IV Titration 500 Amount Sodium Chloride 0.9% 1, 500 000 ml @ 50 mls/hr IV . Q20H [facility] Rx#:[id number] Oral 888 200 Other: # Voids 1 3 On examination he is comfortable sitting in chair eating his breakfast on room air HEENT exam no JVP neck is supple no facial asymmetry Lungs are clear to auscultation with good air entry bilaterally no wheezing Heart sounds are unremarkable for any murmur rub gallop Abdomen soft nontender Extremity exam was no edema Neurologically awake alert oriented - Labs CBC & Chem 7: 01/07/19 21:15 01/09/19 08:53 Labs: Abnormal Lab Results - Last 24 Hours (Table) 01/09/19 01/09/19 01/09/19 Range/Units 07:24 08:53 11:38 Chloride 108 H (98-107) mmol/L Carbon Dioxide 20 L (22-30) mmol/L BUN 32 H (9-20) mg/dL Creatinine 1.49 H (0.66-1.25) mg/dL Glucose 262 H (74-99) mg/dL POC Glucose (mg/dL) 198 H 182 H (75-99) mg/dL 01/09/19 01/09/19 01/10/19 Range/Units 16:29 20:13 07:12 Chloride (98-107) mmol/L Carbon Dioxide (22-30) mmol/L BUN (9-20) mg/dL Creatinine (0.66-1.25) mg/dL Glucose (74-99) mg/dL POC Glucose (mg/dL) 262 H 190 H 141 H (75-99) mg/dL Assessment and Plan Assessment: Impression 1. Acute kidney injury, secondary to prerenal and lisinopril improved with hydration. Creatinine peaked at 2.18 and down to 1.49 yesterday. No labs available today. 2. Baseline creatinine was 1 prior to his nephrectomy. Urinalysis shows no proteinuria as of 01/08/2019 3. Mild non-gap acidosis with bicarb improving to 20 as of yesterday. Etiology is acute kidney injury. 4. Diabetes mellitus blood sugars are slightly high yesterday but better today 5. Status post nephrectomy for carcinoma June 2018 Recommendation 1. Clear to discharge from the nephrological perspective 2. Needs follow-up in office as he has solitary kidney, hypertension. 3. We can reintroduce JOSE inhibitor's under careful monitoring in the outpatient setting
[2019-01-10 07:36] LABS: Calcium 9.9 mg/dL (8.4-10.2); Magnesium 1.9 mg/dL (1.6-2.3); Potassium 4.7 mmol/L (3.5-5.1)
[2019-01-10] MEDS: ASPIRIN 81 MG PO SCH (07:38)
[2019-01-10] MEDS: DOXYCYCLINE 100 MG CAP PO SCH ×2 (07:38→20:05)
[2019-01-10] MEDS: CHOLECALCIFEROL 1,000 UNIT TAB PO SCH (07:38)
[2019-01-10] MEDS: methylPREDNISolone SOD SUCCI 40 MG/ML 1 ML VIAL IV SCH (07:38)
[2019-01-10] MEDS: HEPARIN SODIUM,PORCINE 5,000 UNIT/ML 1 ML VIAL SQ SCH ×2 (07:38→20:05)
[2019-01-10] MEDS: FAMOTIDINE 20 MG TAB PO SCH ×2 (07:38→20:05)
[2019-01-10] MEDS: INSULIN ASPART (NovoLOG) 100 UNIT/ML VIAL SQ SCH ×3 (07:39→17:15)
[2019-01-10] MEDS: BUDESONIDE 0.5 MG/2 ML NEBU INHALATION SCH ×2 (07:58→20:22)
[2019-01-10] MEDS: IPRATROPIUM-ALBUTEROL 3 ML NEB INHALATION SCH ×4 (07:58→20:22)
[2019-01-10] MEDS ORDERED: ALPRAZolam 0.5 MG TAB PO PRN (11:01)
[2019-01-10 11:26] LABS: Glucose,Whole Blood 161 mg/dL (75-99)
--- NOTE | 2019-01-10 11:49 | P.PN ---
Subjective Progress Note Date: 01/10/19 Principal diagnosis: Acute COPD exacerbation, chronic asthmatic bronchitis with acute exacerbation, hypertension hypertensive cardiovascular disease, dyslipidemia, insulin-requirin g diabetes mellitus, morbid obesity 01/19/2019, patient seen benito examined during the rounds patient has been doing fairly well overnight but at around 10 had episode in which he was short of breath anxious slightly tachycardic episode lasted for 45 minutes in close gradually it's fading away some tightness was present as well no more tightness present at this time patient has similar episodes a few years ago the used to resolve with Xanax, exam is clear further lungs for any wheezing computed t omography scan cannot be done due to diabetic nephropathy an elevated BUN/creatinine, will do a VQ scan and resume Xanax we'll taper the steroids as well 01/09/2019, patient seen benito examined during the rounds labs reviewed medications reviewed care plan discussed with the patient at length his co ngestion cough shortness breath is significantly improved, patient likely will be discharged with oral antibiotics and tapering steroids to be a cyst by primary cashier parking lot as outpatient basis This is a 68-year-old male with the history of remote smoking patient has no history of COPD asthma according to him but has episodes of bronchitis last episode was one week ago he was treated with oral antibiotics and prednisone felt better then has to relapse 2 days prior to coming into the hospital the oral prednisone was called after taking prednisone he felt better for a day then started having symptoms again, his x-rays unremarkable, he felt better after getting IV steroids and rehydration currently he is hospitalized at this time he has fine expiratory wheezing is prior medical history significant for dyslipidemia hypertension diabetes mellitus insulin-requiring he has taken in the past Symbicort and Advair lately has not been taking them, and denies any chest pain denies any present shortness of breath, denies any hemoptysis Objective - Vital Signs Vital signs: Vital Signs Temp 99.0 F 01/10/19 07:28 Pulse 76 01/10/19 11:24 Resp 20 01/10/19 10:20 BP 136/73 01/10/19 10:20 Pulse Ox 97 01/10/19 10:20 Intake & Output 01/09/19 01/10/19 01/10/19 18:59 06:59 18:59 Intake Total 888 700 Balance 888 700 Intake: Intake, IV Titration 500 Amount Sodium Chloride 0.9% 1, 500 000 ml @ 50 mls/hr IV . Q20H [facility] Rx#:[id number] Oral 888 200 Other: Voiding Method Toilet # Voids 1 3 - Exam - Constitutional General appearance: average body habitus, cooperative, disheveled - EENT Eyes: anicteric sclerae, EOMI, PERRLA Ears: bilateral: normal - Neck Neck: normal ROM Carotids: bilateral: upstroke normal Thyroid: bilateral: normal size - Respiratory Respiratory: Clear to auscultation no wheezing rhonchi - Cardiovascular Rhythm: regular Heart sounds: normal: S1, S2 - Gastrointestinal General gastrointestinal: normal bowel sounds, soft - Integumentary Integumentary: normal, normal turgor - Neurologic Neurologic: CNII-XII intact - Musculoskeletal Musculoskeletal: gait normal, generalized weakness, strength equal bilaterally - Psychiatric Psychiatric: A&O x's 3, appropriate affect, intact judgment & insight - Labs CBC & Chem 7: 01/07/19 21:15 01/10/19 07:04 Labs: Abnormal Lab Results - Last 24 Hours (Table) 01/09/19 01/09/19 01/10/19 Range/Units 16:29 20:13 07:04 Chloride 109 H (98-107) mmol/L BUN 28 H (9-20) mg/dL Creatinine 1.58 H (0.66-1.25) mg/dL Glucose 128 H (74-99) mg/dL POC Glucose (mg/dL) 262 H 190 H (75-99) mg/dL 01/10/19 01/10/19 Range/Units 07:12 11:24 Chloride (98-107) mmol/L BUN (9-20) mg/dL Creatinine (0.66-1.25) mg/dL Glucose (74-99) mg/dL POC Glucose (mg/dL) 141 H 161 H (75-99) mg/dL Assessment and Plan Assessment: Acute COPD exacerbation Acute asthma exacerbation with baseline chronic intermittent asthma Episode of shortness of breath palpitation differential diagnoses of panic attack less likely PE, will do a VQ scan and resume patient on Xanax, we'll taper steroids Hypertension hypertensive cardiovascular disease Dyslipidemia Insulin requiring diabetes mellitus Obesity Plan: Bronchodilator IV steroids can be tapered further VQ scan Oral antibiotics doxycycline Continue home medications Monitor sugar closely Observe closely Other recommendations pending plan of care as per clinical response of the patient Time with Patient: Greater than 30
--- NOTE | 2019-01-10 14:38 | NM ---
EXAMINATION TYPE: NM pul vent and perfuse DATE OF EXAM: 01/10/2019 COMPARISON: NONE HISTORY: Chest pain TECHNIQUE: Utilizing inhalation of 30.4 mCi Tc 99m DTPA aerosol and intravenous injection of 5.02 mC i of Tc 99m MAA, ventilation and perfusion images are acquired post injection in multiple projections . FINDINGS: Normal radiotracer distribution is noted in the lungs. There is no evidence of mismatched defects. IMPRESSION: Negative exam. There is a very low probability of pulmonary embolism.
[2019-01-10 17:03] LABS: Glucose,Whole Blood 196 mg/dL (75-99)
[2019-01-11 07:12] LABS: Glucose,Whole Blood 138 mg/dL (75-99)
[2019-01-11] MEDS: INSULIN ASPART (NovoLOG) 100 UNIT/ML VIAL SQ SCH ×2 (07:18→12:26)
--- NOTE | 2019-01-11 07:21 | P.PN ---
Subjective Progress Note Date: 01/11/19 Principal diagnosis: This is a 68-year-old male seen with acute kidney injury, deemed to be from prerenal and lisinopril. He came in because of shortness of breath from bronchitis and is significantly improved. Yesterday he again had a bout of shortness of breath. There was no associated chest pain dizziness. No nausea vomiting headache fever chills. Appetite is good. He is on IV fluid 50 mL normal saline per hour. Urine output is not documented Patient has history of renal cell carcinoma and underwent left-sided nephrectomy in June 2018 at [facility]. He presented to the hospital this admission with dyspnea. Patient states he's been recovering from b ronchitis. Patient states he received a breathing treatment this morning and feels much better. No edema. Good urine output. No vomiting or diarrhea. No chest pain. Denies use of nonsteroidals. No family history of renal disease. He does take lisinopril at home. He also has long-standing history of diabetes mellitus. Patient states he was diagnosed over 10 years ago. Hemodynamically stable. Objective - Vital Signs Vital signs: Vital Signs Temp 97.6 F 01/11/19 01:26 Pulse 81 01/11/19 01:26 Resp 18 01/11/19 01:26 BP 151/76 01/11/19 01:26 Pulse Ox 97 01/11/19 01:26 Intake & Output 01/10/19 01/11/19 01/11/19 18:59 06:59 18:59 Intake Total 240 Balance 240 Intake: Oral 240 Other: Voiding Method Toilet Toilet # Voids 3 On examination is awake alert oriented comfortable. HEENT exam no JVP neck is supple no facial asymmetry Lungs are clear to auscultation good air entry there is no wheezing or crackles. Heart sounds are unremarkable for any murmur rub gallop Abdomen soft nontender Extremity exam was trace edema Neurologically awake alert oriented - Labs CBC & Chem 7: 01/07/19 21:15 01/10/19 07:04 Labs: Abnormal Lab Results - Last 24 Hours (Table) 01/10/19 01/10/19 01/10/19 Range/Units 07:04 11:24 17:02 Chloride 109 H (98-107) mmol/L BUN 28 H (9-20) mg/dL Creatinine 1.58 H (0.66-1.25) mg/dL Glucose 128 H (74-99) mg/dL POC Glucose (mg/dL) 161 H 196 H (75-99) mg/dL 01/11/19 Range/Units 07:11 Chloride (98-107) mmol/L BUN (9-20) mg/dL Creatinine (0.66-1.25) mg/dL Glucose (74-99) mg/dL POC Glucose (mg/dL) 138 H (75-99) mg/dL Assessment and Plan Assessment: Impression 1. Acute kidney injury, secondary to prerenal and lisinopril improved with hydration. Creatinine peaked at 2.18 and down to 1.49, and slightly up to 1.58 as of yesterday 01/10/2019 2. Baseline creatinine was 1 prior to his nephrectomy. Urinalysis shows no proteinuria as of 01/08/2019 3. Mild non-gap acidosis with bicarb improving to 26 as of yesterday. Etiology is acute kidney injury. 4. Diabetes mellitus blood sugars are slightly high yesterday but better today 5. Status post nephrectomy for carcinoma June 2018. 6. Episodes of shortness of breath associated with probably anxiety as per patient himself. Recommendation 1. Clear to discharge from the nephrological perspective 2. Needs follow-up in office as he has solitary kidney, hypertension. 3. We can reintroduce JOSE inhibitor's under careful monitoring in the outpatient setting
[2019-01-11 07:33] VITALS: BP 157/77; RESP 17; TEMP 98.6
[2019-01-11] MEDS: BUDESONIDE 0.5 MG/2 ML NEBU INHALATION SCH (08:06)
[2019-01-11] MEDS: IPRATROPIUM-ALBUTEROL 3 ML NEB INHALATION SCH ×2 (08:06→11:24)
[2019-01-11] MEDS: ASPIRIN 81 MG PO SCH (08:35)
[2019-01-11] MEDS: DOXYCYCLINE 100 MG CAP PO SCH ×2 (08:35→08:36)
[2019-01-11] MEDS: CHOLECALCIFEROL 1,000 UNIT TAB PO SCH (08:35)
[2019-01-11] MEDS: FAMOTIDINE 20 MG TAB PO SCH (08:35)
[2019-01-11] MEDS: HEPARIN SODIUM,PORCINE 5,000 UNIT/ML 1 ML VIAL SQ SCH (08:36)
[2019-01-11] MEDS ORDERED: methylPREDNISolone SOD SUCCI 40 MG/ML 1 ML VIAL IV SCH (09:00)
--- NOTE | 2019-01-11 09:31 | P.PN ---
Subjective Progress Note Date: 01/10/19 Principal diagnosis: Acute exacerbation COPD Acute exacerbation chronic asthmatic bronchitis Acute renal injury 68-year-old male with the history of remote smoking patient has no history of COPD asthma according to him but has episodes of bronchitis last episode was one week ago he was treated with oral antibiotics and prednisone felt better then has to relapse 2 days prior to coming into the hospital the oral prednisone was called after taking prednisone he felt better for a day then started having symptoms again, his x-rays unremarkable, he felt better after getting IV st eroids and rehydration currently he is hospitalized at this time he has fine expiratory wheezing is prior medical history significant for dyslipidemia hypertension diabetes mellitus insulin-requiring he has taken in the past Symbicort and Advair lately has not been taking them, and denies any chest pain denies any present shortness of breath, denies any hemoptysis 01/09/2019 Patient is seen in follow-up for acute kidney injury and acute exacerbation of COPD. Patient's creatinine on admission was 2.18 and is down to 1.49 today. Patient has history of renal cell carcinoma and underwent left-sided nephrectomy in June 2018 at [facility]. He is currently maintained on IV fluids. Oral intake is good. No vomiting or diarrhea. Admits to good urine output. No chest pain or shortness of breath. Pulmonary service is following and recommending to continue with antibiotics and steroids with anticipation of discharge on oral antibiotics and tapering steroids with follow-up with primary turpentine farmer as an outpatient 01/10/2019 Patient is seen and evaluated in the room with pulmonary at bedside; patient did have an episode last night at which time he became extremely short of breath and tachycardic; according to nursing staff the whole episode lasted about 45 minutes at which time patient was also complaining about some tightness in the chest; patient also relates that he used to have similar episodes in the past which improved with Xanax Pulmonary is recommending CT chest versus VQ scan to rule out PE; patient does ask dia acute on chronic renal injury with admission creatinine of 2.18 improving to 1.58 this morning; we will proceed with VQ scan; further recommendations after scan is done Patient remains on IV fluids and has been cleared by nephrology service for possible discharge from nephrology standpoint Objective - Vital Signs Vital signs: Vital Signs Temp 99.0 F 01/10/19 07:28 Pulse 76 01/10/19 08:14 Resp 16 01/10/19 07:28 BP 137/76 01/10/19 07:28 Pulse Ox 97 01/10/19 07:28 Intake & Output 01/09/19 01/10/19 01/10/19 18:59 06:59 18:59 Intake Total 888 700 Balance 888 700 Intake: Intake, IV Titration 500 Amount Sodium Chloride 0.9% 1, 500 000 ml @ 50 mls/hr IV . Q20H [facility] Rx#:[id number] Oral 888 200 Other: # Voids 1 3 - Exam - Constitutional General appearance: Present: average body habitus, cooperative, no acute distress - EENT Eyes: Present: anicteric sclerae, EOMI, PERRLA, normal appearance ENT: Present: hearing grossly normal, normal oropharynx Ears: bilateral: normal - Neck Neck: Present: normal ROM. Absent: lymphadenopathy, rigidity, thyromegaly Carotids: negative: bruit present Thyroid: bilateral: normal size, negative: enlarged, nodule - Respiratory Respiratory: bilateral: CTA, negative: rales, rhonchi, wheezing - Cardiovascular Rhythm: regular Heart sounds: normal: S1, S2 Abnormal Heart Sounds: Absent: systolic murmur, diastolic murmur - Gastrointestinal General gastrointestinal: Present: normal bowel sounds, soft. Absent: distended, organomegaly, tenderness - Genitourinary Genitourinary Comment(s): deferred - Integumentary Integumentary: Present: normal turgor. Absent: jaundiced, rash, ulcer - Neurologic Neurologic: Present: CNII-XII intact. Absent: focal deficits - Musculoskeletal Musculoskeletal: Present: gait normal, strength equal bilaterally - Psychiatric Psychiatric: Present: A&O x's 3, appropriate affect, intact judgment & insight - Labs CBC & Chem 7: 01/07/19 21:15 01/10/19 07:04 Labs: Abnormal Lab Results - Last 24 Hours (Table) 01/09/19 01/09/19 01/09/19 Range/Units 11:38 16:29 20:13 Chloride (98-107) mmol/L BUN (9-20) mg/dL Creatinine (0.66-1.25) mg/dL Glucose (74-99) mg/dL POC Glucose (mg/dL) 182 H 262 H 190 H (75-99) mg/dL 01/10/19 01/10/19 Range/Units 07:04 07:12 Chloride 109 H (98-107) mmol/L BUN 28 H (9-20) mg/dL Creatinine 1.58 H (0.66-1.25) mg/dL Glucose 128 H (74-99) mg/dL POC Glucose (mg/dL) 141 H (75-99) mg/dL Assessment and Plan Assessment: Acute kidney injury, mostly prerenal Acute COPD exacerbation History of left renal cell carcinoma status post nephrectomy in 06/2018 Type 2 diabetes mellitus Essential hypertension Hypothyroidism Plan: This is a pleasant 68 years old male who presents with acute kidney injury and COPD. Continue with oxygen, antibiotics, broncho-dilator. Continue with gentle hydration. Follow-up pulmonary and nephrology recommendation. Hold lisinopril and Coreg and monitor blood pressure Labs and medication were reviewed.. Continue same treatment. Continue with symptomatic treatment. Resume home medication. Monitor lytes and vitals. DVT and GI prophylaxis. Further recommendations of the clinical course of the patient DVT prophylaxis: Subcutaneous heparin GI Prophylaxis: Pepcid PT/OT: Pending Time with Patient: Greater than 30
[2019-01-11 11:07] LABS: Glucose,Whole Blood 150 mg/dL (75-99)
[2019-01-11 11:38] VITALS: PULSE 80
--- NOTE | 2019-01-11 14:08 | P.DS ---
Providers Date of admission: 01/09/19 13:57 Expected date of discharge: 01/11/19 Attending physician: Kelin Pabon Consults: 01/08/19 00:55 Consult Physician Routine Consulting Provider: Ronald Coleman Consult Reason/Comments: elijah Do you want consulting provider notified?: Yes Consult Physician Routine Consulting Provider: Carlos Jarvis Consult Reason/Comments: dyspnea Do you want consulting provider notified?: Yes Primary care physician: [facility] Course: 68-year-old male with the history of remote smoking patient has no history of COPD asthma according to him but has episodes of bronchitis last episode was one week ago he was treated with oral antibiotics and prednisone felt better then has to relapse 2 days prior to coming into the hospital the oral prednisone was called after taking prednisone he felt better for a day then started having symptoms again, his x-rays unremarkable, he felt better after getting IV steroids and rehydration currently he is hospitalized at this time he has fine expiratory wheezing is prior medical history significant for dyslipidemia hypertension diabetes mellitus insulin-requiring he has taken in the past Symb icort and Advair lately has not been taking them, and denies any chest pain denies any present shortness of breath, denies any hemoptysis 01/09/2019 Patient is seen in follow-up for acute kidney injury and acute exacerbation of COPD. Patient's creatinine on admission was 2.18 and is down to 1.49 today. Patient has history of renal cell carcinoma and underwent left-sided nephrectomy in June 2018 at [facility]. He is currently maintained on IV fluids. Oral intake is good. No vomiting or diarrhea. Admits to good urine output. No chest pain or shortness of breath. Pulmonary service is following and recommending to continue with antibiotics and steroids with anticipation of discharge on oral antibiotics and tapering steroids with follow-up with primary automobile lights assembler as an outpatient 01/10/2019 Patient is seen and evaluated in the room with pulmonary at bedside; patient did have an episode last night at which time he became extremely short of breath and tachycardic; according to nursing staff the whole episode lasted about 45 minutes at which time patient was also complaining about some tightness in the chest; patient also relates that he used to have similar episodes in the past which improved with Xanax Pulmonary is recommending CT chest versus VQ scan to rule out PE; patient does ask dia acute on chronic renal injury with admission creatinine of 2.18 improving to 1.58 this morning; we will proceed with VQ scan; further recommendations after scan is done Patient remains on IV fluids and has been cleared by nephrology service for possible discharge from nephrology standpoint 01/11/2019; patient remained stable without any further episodes of hypoxia; V/Q scan was negative for PE; pulmonary recommended discharge patient home on oral steroids and doxycycline along with Xanax to be used when necessary Patient Condition at Discharge: Good Plan - Discharge Summary Discharge Rx Participant: Yes New Discharge Prescriptions: New predniSONE 40 mg PO DAILY 3 Days #6 tab Doxycycline [Vibramycin] 100 mg PO BID #14 cap ALPRAZolam [Xanax] 0.5 mg PO TID PRN #7 tab PRN Reason: Anxiety Continue Simvastatin [Zocor] 40 mg PO HS Aspirin 81 mg PO DAILY Carvedilol [Coreg] 6.25 mg PO BID Cholecalciferol [Vitamin D3 (25 Mcg = 1000 Iu)] 1,000 unit PO DAILY INSULIN ASPART (NovoLOG) [NovoLOG (formulary)] See Protocol SQ AC-TID Levothyroxine Sodium [Synthroid] 175 mcg PO DAILY Tamsulosin HCl [Flomax] 0.4 mg PO HS Insulin Degludec [Tresiba Flextouch U-100] 65 units SQ HS Thiamine HCl [Vitamin B-1] 100 mg PO DAILY INSULIN ASPART (NovoLOG) [NovoLOG (formulary)] 18 unit SQ AC-BRKFST INSULIN ASPART (NovoLOG) [NovoLOG (formulary)] 20 units SQ AC-LUNCH INSULIN ASPART (NovoLOG) [NovoLOG (formulary)] 22 units SQ AC-SUPPER Lisinopril 40 mg PO DAILY #0 Albuterol Inhaler [Ventolin Hfa Inhaler] 1 - 2 puff INHALATION RT-Q6H PRN PRN Reason: Shortness Of Breath Or Wheezing Budesonide-Formot 160-4.5 Mcg [Symbicort 160-4.5 Mcg Inhaler] 2 puff INHALATION RT-BID predniSONE See Taper PO DAILY Tiotropium Aiken [Spiriva] 1 cap INHALATION RT-DAILY Discharge Medication List Aspirin 81 mg PO DAILY 05/26/15 [History] Carvedilol [Coreg] 6.25 mg PO BID 05/26/15 [History] Simvastatin [Zocor] 40 mg PO HS 05/26/15 [History] Cholecalciferol [Vitamin D3 (25 Mcg = 1000 Iu)] 1,000 unit PO DAILY 08/07/17 [History] INSULIN ASPART (NovoLOG) [NovoLOG (formulary)] See Protocol SQ AC-TID 08/07/17 [History] Insulin Degludec [Tresiba Flextouch U-100] 65 units SQ HS 12/29/18 [History] Levothyroxine Sodium [Synthroid] 175 mcg PO DAILY 12/29/18 [History] Tamsulosin HCl [Flomax] 0.4 mg PO HS 12/29/18 [History] INSULIN ASPART (NovoLOG) [NovoLOG (formulary)] 18 unit SQ AC-BRKFST 12/30/18 [History] INSULIN ASPART (NovoLOG) [NovoLOG (formulary)] 20 units SQ AC-LUNCH 12/30/18 [History] INSULIN ASPART (NovoLOG) [NovoLOG (formulary)] 22 units SQ AC-SUPPER 12/30/18 [History] Lisinopril 40 mg PO DAILY #0 12/30/18 [Rx] Thiamine HCl [Vitamin B-1] 100 mg PO DAILY 12/30/18 [History] Albuterol Inhaler [Ventolin Hfa Inhaler] 1 - 2 puff INHALATION RT-Q6H PRN 01/07/19 [History] Budesonide-Formot 160-4.5 Mcg [Symbicort 160-4.5 Mcg Inhaler] 2 puff INHALATION RT-BID 01/07/19 [History] Tiotropium Aiken [Spiriva] 1 cap INHALATION RT-DAILY 01/07/19 [History] predniSONE 40 mg PO DAILY 3 Days #6 tab 01/07/19 [Rx] predniSONE See Taper PO DAILY 01/07/19 [History] ALPRAZolam [Xanax] 0.5 mg PO TID PRN #7 tab 01/11/19 [Rx] Doxycycline [Vibramycin] 100 mg PO BID #14 cap 01/11/19 [Rx] Follow up Appointment(s)/Referral(s): Dell Merino DO [Primary Care Provider] - 1-2 days (office closed at tiem of discharge) Patient Instructions/Handouts: Acute Kidney Injury (DC), Acute Bronchitis (ED) Discharge Disposition: HOME SELF-CARE
== END 2019-01-11 14:32 | disposition home or self-care (01) | DRG 683 ==
LOC: EC 20:58 → 4SSUR 01-08 00:56 → OBSVTOIN 01-09 13:57
PROVIDERS: ADMIT Hospitalist; ATTEND Hospitalist
DX: N17.9 Acute kidney failure, unspecified (principal); E87.2 Acidosis; J44.0 Chronic obstructive pulmonary disease with (acute) lower respiratory infection; J44.1 Chronic obstructive pulmonary disease with (acute) exacerbation; J45.21 Mild intermittent asthma with (acute) exacerbation; E66.01 Morbid (severe) obesity due to excess calories; N28.1 Cyst of kidney, acquired; I11.9 Hypertensive heart disease without heart failure; J20.9 Acute bronchitis, unspecified; E78.5 Hyperlipidemia, unspecified; E11.9 Type 2 diabetes mellitus without complications; E03.9 Hypothyroidism, unspecified; K46.9 Unspecified abdominal hernia without obstruction or gangrene; F41.9 Anxiety disorder, unspecified; T46.4X5A Adverse effect of angiotensin-converting-enzyme inhibitors, initial encounter; D72.829 Elevated white blood cell count, unspecified; T38.0X5A Adverse effect of glucocorticoids and synthetic analogues, initial encounter; Z68.33 Body mass index [BMI] 33.0-33.9, adult; Z79.82 Long term (current) use of aspirin; Z79.51 Long term (current) use of inhaled steroids; Z79.4 Long term (current) use of insulin; Z79.890 Hormone replacement therapy; Z79.899 Other long term (current) drug therapy; Z87.891 Personal history of nicotine dependence; Z85.528 Personal history of other malignant neoplasm of kidney; Z90.49 Acquired absence of other specified parts of digestive tract; Z90.5 Acquired absence of kidney; Z98.890 Other specified postprocedural states; Z82.49 Family history of ischemic heart disease and other diseases of the circulatory system; Z83.3 Family history of diabetes mellitus; Z80.9 Family history of malignant neoplasm, unspecified
CPT/HCPCS: 36415; 71046; 76770; 78582; 80048; 80053; 81003; 83735; 84484; 85025; 85379; 85610; 85730; 93005; 94640; 96360; 96361; 99285

== ENCOUNTER → 2020-03-07 | Outpatient (CLI) | payer MEDICARE, BC ==
--- NOTE | 2020-03-07 10:09 | CT ---
EXAMINATION TYPE: CT chest abdomen wo con DATE OF EXAM: 03/07/2020 COMPARISON: HISTORY: Follow up renal cancer CT DLP: 705.[address] of the chest was performed with lung and mediastinal window settings submitted. The la ck of contrast limits evaluation of the vascular, mediastinal and parenchymal structures including th e upper abdomen. LUNGS: The lungs are clear and free of infiltrate. No atelectasis. No pulmonary nodule or mass is de tected. No pleural effusion. No CT evidence of interstitial lung disease. MEDIASTINUM/LUIS: Thoracic aorta is of normal caliber with limited evaluation given lack of contrast . The heart is not enlarged. No evidence for mediastinal mass. No lymph nodes greater than 1cm. LIVER/GB: The gallbladder is unremarkable. No space-occupying hepatic lesion. PANCREAS: No pancreatic mass identified. No inflammatory process seen. SPLEEN: No evidence for splenomegaly. No intrasplenic lesions seen. ADRENALS: No adrenal nodules identified. No evidence for thickening. KIDNEYS: Left-sided nephrectomy changes noted. Hypoattenuating lesions of lower pole right kidney are redemonstrated without significant interval change. The largest lesion measures 3.2 cm. Lack of cont rast does limit evaluation. BOWEL: Appendix has a normal appearance. No evidence of bowel obstruction. No inflammatory process. Lymph nodes: No evidence for adenopathy greater than 1 cm. Other: No significant abnormality. IMPRESSION: 1. Left-sided nephrectomy change without evidence for recurrent mass or metastatic disease. 2. Stable appearance of the right kidney.
== END | disposition home or self-care (01) ==
LOC: RADCTMAIN 08:25
PROVIDERS: ATTEND Urology
DX: C64.9 Malignant neoplasm of unspecified kidney, except renal pelvis (principal); Z90.5 Acquired absence of kidney
CPT/HCPCS: 71250; 74150

== ENCOUNTER → 2021-03-13 | Outpatient (CLI) | payer MEDICARE, BC ==
--- NOTE | 2021-03-13 15:41 | XR ---
EXAMINATION TYPE: XR chest 2V DATE OF EXAM: 03/13/2021 COMPARISON: Chest x-ray 01/07/2019 HISTORY: Renal neoplasm, C 64.9, occasional cough, history of asthma TECHNIQUE: Frontal and lateral views of the chest are obtained. FINDINGS: There is no focal air space opacity, pleural effusion, or pneumothorax seen. The cardiac silhouette size is within normal limits. Stable evidence of old granulomatous disease noted. There is eventration of the right hemidiaphragm. Prominent lung volumes may be indicative of underlying COPD, there is underlying emphysema. The osseous structures are intact. IMPRESSION: No acute cardiopulmonary process.
--- NOTE | 2021-03-13 15:42 | CT ---
EXAMINATION TYPE: CT abdomen pelvis wo con DATE OF EXAM: 03/13/2021 COMPARISON: 03/07/2020 INDICATION: H/O renal CA, f/u DLP: 1215.7 mGycm, Automated exposure control for dose reduction was used. CONTRAST: 0 mL of Isovue 300. Study performed without Oral Contrast TECHNIQUE: Axial images were obtained from above the diaphragm to the pubic rami in the axial plane a t 5 mm thick sections. Reconstructed images are reviewed on the computer in the coronal plane. FINDINGS: Limited CT sections are obtained the lung bases. There is a calcified granuloma in the lateral left lung base.. CT ABDOMEN: Liver: Normal Spleen: Normal Pancreas: Normal Adrenal glands: Left adrenal gland is thickened measuring 2.3 cm. Right adrenal gland is also thicken ed measuring 1.7 cm. Gallbladder: Normal Kidneys: No masses are evident. No hydronephrosis is present. There is a 3.1 cm cyst in the posteri or lateral right kidney left kidney is surgically absent. Aorta: Vascular calcification is within the aorta. Inferior vena cava: Normal. CT PELVIS: Loops of bowel within the abdomen and pelvis are normal. Scattered diverticula or within the sigmoid colon. The study is lateral contrast limiting evaluation. Appendix: Normal as visualized. Urinary bladder: Normal. Genitourinary structures: Prostate is normal. Osseous structures: No suspicious lytic or sclerotic lesions. Degenerative disc changes are within th e lumbar spine. IMPRESSIONS: 1. Thickening of the bilateral adrenal glands. 2. No recurrent masses or suspicious changes to suggest metastatic left renal cancer.
== END | disposition home or self-care (01) ==
LOC: RADCTMAIN 14:14
PROVIDERS: ATTEND Urology
DX: E27.8 Other specified disorders of adrenal gland (principal); R05 Cough; Z85.528 Personal history of other malignant neoplasm of kidney
CPT/HCPCS: 71046; 74176

== ENCOUNTER 2021-05-08 10:31 | Inpatient (IN) | payer MEDICARE, BC ==
[2021-05-08 10:42] VITALS: TEMP 98.4
[2021-05-08] MEDS ORDERED: ALBUTEROL HFA INHALER INHALATION STA (11:07)
[2021-05-08 11:48] LABS: Basophils % (A) 0 %; Eosinophils % (A) 0 %; HGB 11.9 gm/dL (13.0-17.5); Lymphocytes # (A) 0.9 k/uL (1.0-4.8); Lymphocytes % (A) 13 %; MCV 85.8 fL (80.0-100.0); Mean Platelet Volume 8.5; Monocytes # (A) 0.3 k/uL (0-1.0); Monocytes % (A) 4 %; Neutrophils # (A) 5.9 k/uL (1.3-7.7); Neutrophils % (A) 82 %; Platelet Count 172 k/uL (150-450); RBC 3.97 m/uL (4.30-5.90); RDW 14.3 % (11.5-15.5); WBC 7.2 k/uL (3.8-10.6)
[2021-05-08 12:03] LABS: Partial Thromboplastin Time 26.6 sec (22.0-30.0); Prothrombin Time 10.6 sec (9.0-12.0)
[2021-05-08 12:04] LABS: Calcium 8.1 mg/dL (8.4-10.2); Magnesium 2.2 mg/dL (1.6-2.3); Potassium 4.3 mmol/L (3.5-5.1); Total Bilirubin 0.6 mg/dL (0.2-1.3); Total Protein 5.7 g/dL (6.3-8.2)
--- NOTE | 2021-05-08 12:08 | XR ---
EXAMINATION TYPE: XR chest 2V DATE OF EXAM: 05/08/2021 COMPARISON: 03/13/2021 HISTORY: Shortness of breath TECHNIQUE: Frontal and lateral views of the chest are obtained. FINDINGS: Scattered senescent parenchymal changes noted. Hyperinflation compatible with COPD. Patchy infiltrate throughout the right lung compatible with underlying Covid 19 pneumonia. Heart size is stable. Mediastinal structures are stable and grossly unremarkable. No evidence for hilar prominence. Degenerative changes dorsal spine. IMPRESSION: 1. Patchy infiltrate throughout the right lung compatible with underlying Covid 19 pneumonia.
[2021-05-08] MEDS ORDERED: DEXAMETHASONE SOD PHOSPHATE 10 MG/ML 1 ML VIAL IVP SCH (12:15)
--- NOTE | 2021-05-08 12:19 | ED ---
Fever HPI - General Chief Complaint: Fever Stated Complaint: Covid+/antibodies Time Seen by Provider: 05/08/21 11:07 Source: patient, RN notes reviewed Mode of arrival: ambulatory Limitations: no limitations - History of Present Illness Initial Comments: Patient is a 71-year-old male that presents to the emergency department complaining of increased shortness of breath fatigue. He notes he tested positive for Covid on 05/06/2021 and is progressively been getting worse. He notes he came to the emergency room for shortness of breath for evaluation. Patient denied any other issues or complaints. He does have a past medical history of diabetes hypertension thyroid disorder. Patient denied any chest pain headache nausea vomiting diarrhea constipation fever fatigue chills. - Related Data Home Medications Medication Instructions Recorded Confirmed Aspirin 81 mg PO DAILY 05/26/15 01/07/19 Simvastatin [Zocor] 40 mg PO HS 05/26/15 01/07/19 carvediloL [Coreg] 6.25 mg PO BID 05/26/15 01/07/19 Cholecalciferol [Vitamin D3 (25 1,000 unit PO DAILY 08/07/17 01/07/19 Mcg = 1000 Iu)] INSULIN ASPART (NovoLOG) [NovoLOG See Protocol SQ AC-TID 08/07/17 01/07/19 (formulary)] Insulin Degludec [Tresiba 65 units SQ HS 12/29/18 01/07/19 Flextouch U-100 Pen] Levothyroxine Sodium [Synthroid] 175 mcg PO DAILY 12/29/18 01/07/19 Tamsulosin HCl [Flomax] 0.4 mg PO HS 12/29/18 01/07/19 INSULIN ASPART (NovoLOG) [NovoLOG 18 unit SQ AC-BRKFST 12/30/18 01/07/19 (formulary)] INSULIN ASPART (NovoLOG) [NovoLOG 20 units SQ AC-LUNCH 12/30/18 01/07/19 (formulary)] INSULIN ASPART (NovoLOG) [NovoLOG 22 units SQ AC-SUPPER 12/30/18 01/07/19 (formulary)] Thiamine HCl [Vitamin B-1] 100 mg PO DAILY 12/30/18 01/07/19 Albuterol Inhaler (Mhu) [Ventolin 1 - 2 puff INHALATION RT-Q6H PRN 01/07/19 01/07/19 Hfa Inhaler (Mhu)] Budesonide-Formot 160-4.5 Mcg 2 puff INHALATION RT-BID 01/07/19 01/07/19 [Symbicort 160-4.5 Mcg Inhaler] Tiotropium [place] [Spiriva] 1 cap INHALATION RT-DAILY 01/07/19 01/07/19 predniSONE See Taper PO DAILY 01/07/19 01/07/19 Previous Rx's Medication Instructions Recorded lisinopriL 40 mg PO DAILY #0 12/30/18 predniSONE [Deltasone] 40 mg PO DAILY 3 Days #6 tab 01/07/19 ALPRAZolam [Xanax] 0.5 mg PO TID PRN #7 tab 01/11/19 Doxycycline [Vibramycin] 100 mg PO BID #14 cap 01/11/19 Allergies Allergy/AdvReac Type Severity Reaction Status Date / Time No Known Allergies Allergy Verified 05/08/21 10:42 Review of Systems ROS Statement: Those systems with pertinent positive or pertinent negative responses have been documented in the HPI. ROS Other: All systems not noted in ROS Statement are negative. Past Medical History Past Medical History: Diabetes Mellitus, Hypertension, Thyroid Disorder History of Any Multi-Drug Resistant Organisms: None Reported Past Surgical History: Appendectomy, Hernia Repair Additional Past Surgical History / Comment(s): left kidney removal secondary to cancer Past Anesthesia/Blood Transfusion Reactions: No Reported Reaction Past Psychological History: No Psychological Hx Reported Smoking Status: Never smoker Past Alcohol Use History: Occasional Past Drug Use History: None Reported - Past Family History Mother Family Medical History: Myocardial Infarction ([place]) Additional Family Medical History / Comment(s): maternal grandmother had diabetes Sister(s) Family Medical History: Cancer General Exam Limitations: no limitations General appearance: alert, in no apparent distress, obese Head exam: Present: atraumatic, normocephalic, normal inspection Eye exam: Present: normal appearance, PERRL, EOMI. Absent: scleral icterus, conjunctival injection, periorbital swelling ENT exam: Present: normal exam, mucous membranes moist Neck exam: Present: normal inspection Respiratory exam: Present: normal lung sounds bilaterally. Absent: respiratory distress, wheezes, rales, rhonchi, stridor Cardiovascular Exam: Present: regular rate, normal rhythm, normal heart sounds. Absent: systolic murmur, diastolic murmur, rubs, gallop, clicks Extremities exam: Present: normal inspection, full ROM, normal capillary refill. Absent: tenderness, pedal edema, joint swelling, calf tenderness Neurological exam: Present: alert, oriented X3 Psychiatric exam: Present: normal affect, normal mood Skin exam: Present: warm, dry, intact, normal color. Absent: rash Course Vital Signs 05/08/21 05/08/21 10:37 11:22 Temperature 98.4 F Pulse Rate 61 Respiratory 20 18 Rate Blood Pressure 104/61 O2 Sat by Pulse 89 L Oximetry Medical Decision Making - Medical Decision Making 71-year-old male Covid-positive for the past 3 days symptoms for 4-6 days. Labs, chest x-ray, Covid test ordered. Labs consistent with Covid infection with elevated LDH and C-reactive protein. Chest x-ray shows multifocal bilateral infiltrates consistent with Covid pneumonia. Patient is vital signs show 89% oxygen saturation on room air, 2 L of oxygen via nasal cannula ordered. Given labs imaging and vital signs patient will be admitted for Covid pneumonia with hypoxia. Case discussed with Dr. Hartmann, patient will be admitted. Use discussed with Dr. Randhawa he except the admit. - Lab Data Result diagrams: 05/08/21 11:18 05/08/21 11:18 Lab Results 05/08/21 05/08/21 05/08/21 Range/Units 11:18 11:18 11:18 WBC 7.2 (3.8-10.6) k/uL RBC 3.97 L (4.30-5.90) m/uL Hgb 11.9 L (13.0-17.5) gm/dL Hct 34.0 L (39.0-53.0) % MCV 85.8 (80.0-100.0) fL MCH 30.0 (25.0-35.0) pg MCHC 35.0 (31.0-37.0) g/dL RDW 14.3 (11.5-15.5) % Plt Count 172 (150-450) k/uL MPV 8.5 Neutrophils % 82 % Lymphocytes % 13 % Monocytes % 4 % Eosinophils % 0 % Basophils % 0 % Neutrophils # 5.9 (1.3-7.7) k/uL Lymphocytes # 0.9 L (1.0-4.8) k/uL Monocytes # 0.3 (0-1.0) k/uL Eosinophils # 0.0 (0-0.7) k/uL Basophils # 0.0 (0-0.2) k/uL PT 10.6 (9.0-12.0) sec INR 1.0 (<1.2) APTT 26.6 (22.0-30.0) sec Sodium 135 L (137-145) mmol/L Potassium 4.3 (3.5-5.1) mmol/L Chloride 104 (98-107) mmol/L Carbon Dioxide 23 (22-30) mmol/L Anion Gap 8 mmol/L BUN 35 H (9-20) mg/dL Creatinine 1.66 H (0.66-1.25) mg/dL Est GFR (CKD-EPI)AfAm 47 (>60 ml/min/1.73 sqM) Est GFR (CKD-EPI)NonAf 41 (>60 ml/min/1.73 sqM) Glucose 136 H (74-99) mg/dL Plasma Lactic Acid Sonny (0.7-2.0) mmol/L Calcium 8.1 L (8.4-10.2) mg/dL Magnesium 2.2 (1.6-2.3) mg/dL Total Bilirubin 0.6 (0.2-1.3) mg/dL AST 79 H (17-59) U/L ALT 50 H (4-49) U/L Alkaline Phosphatase 52 (38-126) U/L Lactate Dehydrogenase 1004 H (313-618) U/L C-Reactive Protein 15.0 H (<1.0) mg/dL Total Protein 5.7 L (6.3-8.2) g/dL Albumin 3.0 L (3.5-5.0) g/dL Coronavirus (PCR) (Not Detectd) 05/08/21 05/08/21 Range/Units 11:18 11:18 WBC (3.8-10.6) k/uL RBC (4.30-5.90) m/uL Hgb (13.0-17.5) gm/dL Hct (39.0-53.0) % MCV (80.0-100.0) fL MCH (25.0-35.0) pg MCHC (31.0-37.0) g/dL RDW (11.5-15.5) % Plt Count (150-450) k/uL MPV Neutrophils % % Lymphocytes % % Monocytes % % Eosinophils % % Basophils % % Neutrophils # (1.3-7.7) k/uL Lymphocytes # (1.0-4.8) k/uL Monocytes # (0-1.0) k/uL Eosinophils # (0-0.7) k/uL Basophils # (0-0.2) k/uL PT (9.0-12.0) sec INR (<1.2) APTT (22.0-30.0) sec Sodium (137-145) mmol/L Potassium (3.5-5.1) mmol/L Chloride (98-107) mmol/L Carbon Dioxide (22-30) mmol/L Anion Gap mmol/L BUN (9-20) mg/dL Creatinine (0.66-1.25) mg/dL Est GFR (CKD-EPI)AfAm (>60 ml/min/1.73 sqM) Est GFR (CKD-EPI)NonAf (>60 ml/min/1.73 sqM) Glucose (74-99) mg/dL Plasma Lactic Acid Sonny 0.7 (0.7-2.0) mmol/L Calcium (8.4-10.2) mg/dL Magnesium (1.6-2.3) mg/dL Total Bilirubin (0.2-1.3) mg/dL AST (17-59) U/L ALT (4-49) U/L Alkaline Phosphatase (38-126) U/L Lactate Dehydrogenase (313-618) U/L C-Reactive Protein (<1.0) mg/dL Total Protein (6.3-8.2) g/dL Albumin (3.5-5.0) g/dL Coronavirus (PCR) Detected A (Not Detectd) - EKG Data -: EKG Interpreted by Me EKG shows normal: sinus rhythm Rate: normal EKG Comments: Ventricular rate 60 bpm, ND interval 194 ms, QRS duration 112 ms, QTC 420 ms, PRT axes 72/61/51. Normal sinus rhythm, normal ECG. - Radiology Data Radiology results: report reviewed, image reviewed Chest x-ray: Patchy infiltrate throughout the right lung compatible with underlying COVID-19 pneumonia. Disposition Clinical Impression: Pneumonia due to COVID-19 virus, Hypoxia, Shortness of breath Disposition: ADMITTED IP TO THIS HOSP Condition: Stable Is patient prescribed a controlled substance at d/c from ED?: No Referrals: Dell Merino DO [Primary Care Provider] - 1-2 days Time of Disposition: 12:23
[2021-05-08] MEDS ORDERED: NALOXONE 0.4 MG/ML 1 ML VIAL IV PRN (12:23)
[2021-05-08] MEDS ORDERED: IBUPROFEN 400 MG TAB PO PRN (12:23)
[2021-05-08] MEDS ORDERED: ACETAMINOPHEN TAB 325 MG TAB PO PRN (12:23)
[2021-05-08] MEDS ORDERED: SODIUM CHLORIDE 0.9% 1,000 ML IV SCH (12:30)
[2021-05-08 13:16] VITALS: BP 107/58; PULSE 18; RESP 59
--- NOTE | 2021-05-30 16:57 | P.HPIM ---
History of Present Illness H&P Date: 05/08/21 Chief Complaint: Shortness of breath Patient came to ER due to worsening shortness of breath due to COVID-19 pneumonia. Patient left AMA before I get a chance to see him. Past Medical History Past Medical History: Diabetes Mellitus, Hypertension, Thyroid Disorder History of Any Multi-Drug Resistant Organisms: None Reported Past Surgical History: Appendectomy, Hernia Repair Additional Past Surgical History / Comment(s): left kidney removal secondary to cancer Past Anesthesia/Blood Transfusion Reactions: No Reported Reaction Past Psychological History: No Psychological Hx Reported Smoking Status: Never smoker Past Alcohol Use History: Occasional Past Drug Use History: None Reported - Past Family History Mother Family Medical History: Myocardial Infarction ([place]) Additional Family Medical History / Comment(s): maternal grandmother had diabetes Sister(s) Family Medical History: Cancer Medications and Allergies Home Medications Medication Instructions Recorded Confirmed Type Insulin Degludec [Tresiba 65 units SQ HS 12/29/18 05/08/21 History Flextouch U-100 Pen] Levothyroxine Sodium [Synthroid] 175 mcg PO DAILY 12/29/18 05/08/21 History Tamsulosin HCl [Flomax] 0.4 mg PO DAILY 12/29/18 05/08/21 History INSULIN ASPART (NovoLOG) [NovoLOG See Protocol SQ ACHS 12/30/18 05/08/21 History (formulary)] Budesonide-Formot 160-4.5 Mcg 2 puff INHALATION RT-BID 01/07/19 05/08/21 History [Symbicort 160-4.5 Mcg Inhaler] Albuterol Nebulized [Ventolin 2.5 mg INHALATION RT-QID 05/08/21 05/08/21 History Nebulized] Albuterol Sulfate [Ventolin HFA] 2 puff INHALATION RT-QID 05/08/21 05/08/21 History Budesonide [Pulmicort] 0.5 mg INHALATION RT-BID 05/08/21 05/08/21 History Bumetanide [BUMEX] 0.5 mg PO DAILY 05/08/21 05/08/21 History Carvedilol [Coreg] 12.5 mg PO AC-BID 05/08/21 05/08/21 History Isosorbide Mononitrate ER [Imdur] 30 mg PO DAILY 05/08/21 05/08/21 History Montelukast [Singulair] 10 mg PO HS 05/08/21 05/08/21 History Simvastatin [Zocor] 20 mg PO DAILY 05/08/21 05/08/21 History amLODIPine [Norvasc] 10 mg PO DAILY 05/08/21 05/08/21 History Allergies Allergy/AdvReac Type Severity Reaction Status Date / Time No Known Allergies Allergy Verified 05/09/21 13:58 Results CBC & Chem 7: 05/08/21 11:18 05/08/21 11:18
--- NOTE | 2021-05-30 16:58 | P.DS ---
Providers Date of admission: 05/08/21 12:14 Expected date of discharge: 05/08/21 Attending physician: Octavio Randhawa Consults: 05/08/21 12:23 Consult Physician Urgent Consulting Provider: Raman Schultz Consult Reason/Comments: covid pneumonia Do you want consulting provider notified?: Yes Primary care physician: [facility] Course: Shortness of breath Patient Condition at Discharge: Undetermined Plan - Discharge Summary New Discharge Prescriptions: No Action Levothyroxine Sodium [Synthroid] 175 mcg PO DAILY Tamsulosin HCl [Flomax] 0.4 mg PO DAILY Insulin Degludec [Tresiba Flextouch U-100 Pen] 65 units SQ HS INSULIN ASPART (NovoLOG) [NovoLOG (formulary)] See Protocol SQ ACHS Budesonide-Formot 160-4.5 Mcg [Symbicort 160-4.5 Mcg Inhaler] 2 puff INHALATION RT-BID Simvastatin [Zocor] 20 mg PO DAILY Montelukast [Singulair] 10 mg PO HS Bumetanide [BUMEX] 0.5 mg PO DAILY amLODIPine [Norvasc] 10 mg PO DAILY Albuterol Sulfate [Ventolin HFA] 2 puff INHALATION RT-QID Isosorbide Mononitrate ER [Imdur] 30 mg PO DAILY Carvedilol [Coreg] 12.5 mg PO AC-BID Budesonide [Pulmicort] 0.5 mg INHALATION RT-BID Albuterol Nebulized [Ventolin Nebulized] 2.5 mg INHALATION RT-QID Discharge Medication List Insulin Degludec [Tresiba Flextouch U-100 Pen] 65 units SQ HS 12/29/18 [History] Levothyroxine Sodium [Synthroid] 175 mcg PO DAILY 12/29/18 [History] Tamsulosin HCl [Flomax] 0.4 mg PO DAILY 12/29/18 [History] INSULIN ASPART (NovoLOG) [NovoLOG (formulary)] See Protocol SQ ACHS 12/30/18 [History] Budesonide-Formot 160-4.5 Mcg [Symbicort 160-4.5 Mcg Inhaler] 2 puff INHALATION RT-BID 01/07/19 [History] Albuterol Nebulized [Ventolin Nebulized] 2.5 mg INHALATION RT-QID 05/08/21 [History] Albuterol Sulfate [Ventolin HFA] 2 puff INHALATION RT-QID 05/08/21 [History] Budesonide [Pulmicort] 0.5 mg INHALATION RT-BID 05/08/21 [History] Bumetanide [BUMEX] 0.5 mg PO DAILY 05/08/21 [History] Carvedilol [Coreg] 12.5 mg PO AC-BID 05/08/21 [History] Isosorbide Mononitrate ER [Imdur] 30 mg PO DAILY 05/08/21 [History] Montelukast [Singulair] 10 mg PO HS 05/08/21 [History] Simvastatin [Zocor] 20 mg PO DAILY 05/08/21 [History] amLODIPine [Norvasc] 10 mg PO DAILY 05/08/21 [History] Follow up Appointment(s)/Referral(s): Dell Merino DO [Primary Care Provider] - 1-2 days Discharge Disposition: Left Against Medical Advice
== END 2021-05-08 13:16 | disposition left against medical advice (07) | DRG 177 ==
LOC: EC 10:31 → 4SSUR 12:14
PROVIDERS: ADMIT Internal Medicine; ATTEND Internal Medicine
DX: U07.1 COVID-19 (principal); J12.82 Pneumonia due to coronavirus disease 2019; E11.9 Type 2 diabetes mellitus without complications; Z79.4 Long term (current) use of insulin; R09.02 Hypoxemia; E07.9 Disorder of thyroid, unspecified; I10 Essential (primary) hypertension; R74.02 Elevation of levels of lactic acid dehydrogenase [LDH]; E66.9 Obesity, unspecified; Z68.33 Body mass index [BMI] 33.0-33.9, adult; Z53.29 Procedure and treatment not carried out because of patient's decision for other reasons; Z79.51 Long term (current) use of inhaled steroids; Z79.82 Long term (current) use of aspirin; Z79.890 Hormone replacement therapy; Z79.899 Other long term (current) drug therapy; Z90.49 Acquired absence of other specified parts of digestive tract; Z87.19 Personal history of other diseases of the digestive system; Z90.5 Acquired absence of kidney; Z85.528 Personal history of other malignant neoplasm of kidney; Z98.890 Other specified postprocedural states; Z82.49 Family history of ischemic heart disease and other diseases of the circulatory system; Z83.3 Family history of diabetes mellitus; Z80.9 Family history of malignant neoplasm, unspecified
CPT/HCPCS: 36415; 71046; 80053; 82728; 83605; 83615; 83735; 84145; 85025; 85610; 85730; 86140; 87635; 93005; 94640; 99285

== ENCOUNTER 2021-05-09 13:06 | Emergency (ER) | payer MEDICARE, BC ==
[2021-05-09] MEDS ORDERED: SODIUM CHLORIDE 0.9% 50 ML IVPB ONE (16:45)
[2021-05-09] MEDS ORDERED: SOTROVIMAB (EUA) 500 MG in SODIUM CHLORIDE 0.9% 100 ML IVPB ONE (16:45)
--- NOTE | 2021-05-09 17:04 | ED ---
URI HPI - General Chief Complaint: Upper Respiratory Infection Stated Complaint: covid+/antibodies/sent by pcp Time Seen by Provider: 05/09/21 16:02 Source: patient, RN notes reviewed Mode of arrival: ambulatory Limitations: no limitations - History of Present Illness Initial Comments: This a 71-year-old male presents emergency from chief complaint of COVID-19. Patient states that he's had mild symptoms fever cough congestion bodyaches no chest pain. Patient is here for monoclonal antibodies. Patient offers no other associated complaints - Related Data Home Medications Medication Instructions Recorded Confirmed Insulin Degludec [Tresiba 65 units SQ HS 12/29/18 05/08/21 Flextouch U-100 Pen] Levothyroxine Sodium [Synthroid] 175 mcg PO DAILY 12/29/18 05/08/21 Tamsulosin HCl [Flomax] 0.4 mg PO DAILY 12/29/18 05/08/21 INSULIN ASPART (NovoLOG) [NovoLOG See Protocol SQ ACHS 12/30/18 05/08/21 (formulary)] Budesonide-Formot 160-4.5 Mcg 2 puff INHALATION RT-BID 01/07/19 05/08/21 [Symbicort 160-4.5 Mcg Inhaler] Albuterol Nebulized [Ventolin 2.5 mg INHALATION RT-QID 05/08/21 05/08/21 Nebulized] Albuterol Sulfate [Ventolin HFA] 2 puff INHALATION RT-QID 05/08/21 05/08/21 Budesonide [Pulmicort] 0.5 mg INHALATION RT-BID 05/08/21 05/08/21 Bumetanide [BUMEX] 0.5 mg PO DAILY 05/08/21 05/08/21 Carvedilol [Coreg] 12.5 mg PO AC-BID 05/08/21 05/08/21 Isosorbide Mononitrate ER [Imdur] 30 mg PO DAILY 05/08/21 05/08/21 Montelukast [Singulair] 10 mg PO HS 05/08/21 05/08/21 Simvastatin [Zocor] 20 mg PO DAILY 05/08/21 05/08/21 amLODIPine [Norvasc] 10 mg PO DAILY 05/08/21 05/08/21 Allergies Allergy/AdvReac Type Severity Reaction Status Date / Time No Known Allergies Allergy Verified 05/09/21 13:58 Review of Systems ROS Statement: Those systems with pertinent positive or pertinent negative responses have been documented in the HPI. ROS Other: All systems not noted in ROS Statement are negative. Past Medical History Past Medical History: Diabetes Mellitus, Hypertension, Thyroid Disorder History of Any Multi-Drug Resistant Organisms: None Reported Past Surgical History: Appendectomy, Hernia Repair Additional Past Surgical History / Comment(s): left kidney removal secondary to cancer Past Anesthesia/Blood Transfusion Reactions: No Reported Reaction Past Psychological History: No Psychological Hx Reported Smoking Status: Never smoker Past Alcohol Use History: Occasional Past Drug Use History: None Reported - Past Family History Mother Family Medical History: Myocardial Infarction ([place]) Additional Family Medical History / Comment(s): maternal grandmother had diabetes Sister(s) Family Medical History: Cancer General Exam Limitations: no limitations General appearance: alert, in no apparent distress Head exam: Present: atraumatic, normocephalic, normal inspection Eye exam: Present: normal appearance, PERRL, EOMI. Absent: scleral icterus, conjunctival injection, periorbital swelling Neck exam: Present: normal inspection. Absent: tenderness, meningismus, lymphadenopathy Respiratory exam: Present: normal lung sounds bilaterally. Absent: respiratory distress, wheezes, rales, rhonchi, stridor Cardiovascular Exam: Present: regular rate, normal rhythm, normal heart sounds. Absent: systolic murmur, diastolic murmur, rubs, gallop, clicks Course Vital Signs 05/09/21 13:53 Temperature 98.6 F Pulse Rate 68 Respiratory 20 Rate Blood Pressure 126/61 O2 Sat by Pulse 92 L Oximetry Medical Decision Making - Medical Decision Making Patient received monoclonal he otherwise will be discharged in stable condition return parameters discussed. Disposition Clinical Impression: COVID-19 Disposition: HOME SELF-CARE Condition: Stable Instructions (If sedation given, give patient instructions): Coronavirus Disease 2019 (COVID-19) Additional Instructions: Please return to the Emergency Department if symptoms worsen or any other concerns. Is patient prescribed a controlled substance at d/c from ED?: No Referrals: Dell Merino DO [Primary Care Provider] - 1-2 days Time of Disposition: 17:04
[2021-05-09 18:07] VITALS: BP 142/65; PULSE 61; RESP 18; TEMP 99
== END 2021-05-09 18:30 | disposition home or self-care (01) ==
LOC: EC 13:06
DX: U07.1 COVID-19 (principal); E11.9 Type 2 diabetes mellitus without complications; I10 Essential (primary) hypertension; Z79.4 Long term (current) use of insulin; Z79.899 Other long term (current) drug therapy
CPT/HCPCS: 99283; Q0247

== ENCOUNTER → 2022-03-09 | Outpatient (CLI) | payer MEDICARE, BC ==
--- NOTE | 2022-03-09 08:27 | XR ---
EXAMINATION TYPE: XR chest 2V DATE OF EXAM: 03/09/2022 COMPARISON: 05/08/2021, CT chest 03/07/2020 INDICATION: Renal cell carcinoma TECHNIQUE: Frontal and lateral views of the chest are obtained. FINDINGS: The heart size is normal. The pulmonary vasculature is normal. There is a chronic stable nodule at the left peripheral lung base measuring 0.8 cm.. IMPRESSION: 1. No acute pulmonary process. No suspicious changes to suggest metastatic disease. Follow-up can be performed as clinically indicated.
--- NOTE | 2022-03-09 09:00 | CT ---
EXAMINATION TYPE: CT abdomen pelvis wo con CT DLP: 1059 mGycm, Automated exposure control for dose reduction was used. DATE OF EXAM: 03/09/2022 8:28 AM COMPARISON: CT abdomen pelvis most recent from 03/13/2021 . CLINICAL INDICATION:Male, 72 years old with history of C64 renal ca; Follow up on renal cyst TECHNIQUE: Standard CT of the abdomen and pelvis without IV or oral contrast. Lack of IV or oral co ntrast limits evaluation of solid and hollow organ viscera. Coronal and sagittal reformats were perfo rmed. FINDINGS: LOWER CHEST: Stable calcified granuloma in the left lower lobe. ABDOMEN LIVER: Unremarkable noncontrast appearance. GALLBLADDER AND BILE DUCTS: Unremarkable. PANCREAS: Unremarkable noncontrast appearance. SPLEEN: Unremarkable noncontrast appearance ADRENAL GLANDS: Stable bilateral adrenal gland thickening. KIDNEYS AND URETERS: Left kidney is surgically absent. No suspicious soft tissue within the nephrecto my bed. No hydronephrosis or renal calculi. Increase in size of right posterior kidney 3.5 cm cyst, previous a 3.1 cm. Additional stable appearing cysts within the inferior pole of the left kidney halie uring 3.2 cm and 2.5 cm. Additional subcentimeter hypertension foci within the right kidney which are too small to characterize. PELVIS BLADDER: Incompletely distended but grossly unremarkable. REPRODUCTIVE: Unremarkable. ABDOMEN & PELVIS STOMACH AND BOWEL: Small hiatal hernia, duodenum is unremarkable. Colonic diverticulosis without evid ence for acute diverticulitis. No evidence of bowel obstruction. PERITONEUM: No evidence of pneumoperitoneum or free fluid. VASCULATURE: Moderate atherosclerotic calcifications are present throughout the abdominal aorta and i ts branches. No evidence of aortic aneurysm. MUSCULOSKELETAL: No acute osseous abnormalities. No aggressive osseous lesions. Multilevel degenerati ve changes of the visualized spine. LYMPH NODES: No gross evidence for lymphadenopathy. SOFT TISSUE/ABDOMINAL WALL: Ventral periumbilical fat filled hernia. IMPRESSION: 1. Post surgical changes from left nephrectomy. No evidence for local recurrence or distant metastasi s. 2. Increased size of right posterior renal cysts with additional other cysts appearing stable. Consid er further evaluation with renal ultrasound. 3. Stable thickening of the bilateral adrenal glands. 4. Colonic diverticulosis without evidence for acute diverticulitis.
== END | disposition home or self-care (01) ==
LOC: RADCTMAIN 08:00
PROVIDERS: ATTEND Urology
DX: N28.1 Cyst of kidney, acquired (principal); K57.30 Diverticulosis of large intestine without perforation or abscess without bleeding; E27.9 Disorder of adrenal gland, unspecified; Z85.528 Personal history of other malignant neoplasm of kidney
CPT/HCPCS: 71046; 74176

== ENCOUNTER 2022-09-19 08:56 | Day surgery (SDC) | payer MEDICARE, BC ==
[~2022-09-19 08:56] MED LIST: LACTATED RINGERS 1,000 ML IV SCH; LIDOCAINE 1% (10MG/ML) FOR IV START INTRADERMA PRN
[2022-09-19 09:21] VITALS: RESP 16; TEMP 97.9
[2022-09-19 09:30] LABS: Glucose,Whole Blood 132 mg/dL (70-110)
[2022-09-19] MEDS ORDERED: LIDOCAINE 2% INJ 20 MG/ML (2 ML VIAL) ONE (09:58)
[2022-09-19] MEDS ORDERED: PROPOFOL 10 MG/ML 20 ML VIAL IV ONE (09:58)
--- NOTE | 2022-09-19 10:15 | P.PCN ---
Date of Procedure: 09/19/22 Procedure(s) Performed: BRIEF HISTORY: Patient is a 72-year-old pleasant white male scheduled for an elective colonoscopy as a part of screening for colon cancer/positive cologuard. PROCEDURE PERFORMED: Colonoscopy with snare polypectomy. PREOPERATIVE DIAGNOSIS: Screening for colon cancer/positive cologuard. IV sedation per Anesthesia. PROCEDURE: After informed consent was obtained, the patient, was brought into the endoscopy unit. IV sedation was administered by Anesthesia under continuous monitoring. Digital rectal examination was normal. Initially the Olympus CF-160 flexible video colonoscope was then inserted in the rectum, gradually advanced into the cecum without any difficulty. Careful examination was performed as the scope was gradually being withdrawn. Ileocecal valve and the appendiceal orifice were visualized and appeared normal. Prep was excellent. Mucosa of the cecum, a 3 mm and 5 mm polyp removed by snare polypectomy. In the ascending colon there was a 5 mm polyp removed by snare polypectomy. In the transverse colon there was a 1.5 cm broad-based polyp removed by snare polypectomy. Rest of the ascending colon, transverse colon, descending colon, sigmoid colon, and rectum appeared normal. Moderate sigmoid diverticulosis Retroflexion was performed in the rectum and no lesions were seen. The patient tolerated the procedure well. IMPRESSION: 3 mm and 5 mm cecal polyp status post polypectomy 5 mm ascending colon polyp status post polypectomy 1.5 cm broad-based transverse colon polyp status post polypectomy Moderate sigmoid diverticulosis RECOMMENDATIONS: Findings of this examination were discussed with the patient as well as his family. He was advised to follow with the biopsy results. If the biopsy reveals adenoma he can have a repeat colonoscopy in 3 years..
[2022-09-19 10:51] VITALS: BP 153/78; PULSE 74
== END 2022-09-19 11:07 | disposition home or self-care (01) ==
LOC: ORWHC2ENDO 08:56
PROVIDERS: ATTEND Internal Medicine Gastroenterology
DX: D12.0 Benign neoplasm of cecum (principal); D12.2 Benign neoplasm of ascending colon; D12.3 Benign neoplasm of transverse colon; I10 Essential (primary) hypertension; E78.5 Hyperlipidemia, unspecified; J44.9 Chronic obstructive pulmonary disease, unspecified; E11.9 Type 2 diabetes mellitus without complications; K21.9 Gastro-esophageal reflux disease without esophagitis; E07.9 Disorder of thyroid, unspecified; Z79.4 Long term (current) use of insulin; Z79.890 Hormone replacement therapy; Z79.899 Other long term (current) drug therapy
CPT/HCPCS: 88305; 45385; J2704; J2001

== ENCOUNTER 2022-09-24 06:39 | Day surgery (SDC) | payer MEDICARE, BC ==
[2022-09-24] MEDS ORDERED: LACTATED RINGERS 1,000 ML IV ONE (06:52)
[2022-09-24 07:01] LABS: Glucose,Whole Blood 114 mg/dL (70-110)
[2022-09-24 07:04] VITALS: TEMP 97.4
--- NOTE | 2022-09-24 07:27 | P.GSHP ---
History of Present Illness H&P Date: 09/24/22 CHIEF COMPLAINT: GERD HISTORY OF PRESENT ILLNESS: The patient is a 72-year-old male who presents reports gastroesophageal reflux disease. Upper endoscopy was offered for further evaluation and management. PAST MEDICAL HISTORY: Please see list. PAST SURGICAL HISTORY: Please see list. MEDICATIONS: Please see list. ALLERGIES: Please see list. SOCIAL HISTORY: No illicit drug use FAMILY HISTORY: No reports of Crohn disease or ulcerative colitis. REVIEW OF ORGAN SYSTEMS: CONSTITUTIONAL: No reports of fevers or chills. GI: Denies any blood in stools or constipation. PHYSICAL EXAM: VITAL SIGNS: Stable GENERAL: Well-developed and pleasant in no acute distress. HEENT: No scleral icterus. Extraocular movements grossly intact. Moist buccal mucosa. NECK: Supple without lymphadenopathy. CHEST: Unlabored respirations. Equal bilateral excursions. CARDIOVASCULAR: Regular rate and rhythm. Distal 2+ pulses. ABDOMEN: Soft, nondistended. MUSCULOSKELETAL: No clubbing, cyanosis, or edema. ASSESSMENT: 1. Gastroesophageal reflux disease PLAN: 1. Recommend proceeding with an upper endoscopy Past Medical History Past Medical History: Asthma, Cancer, Diabetes Mellitus, GERD/Reflux, Hyperlipidemia, Hypertension, Renal Disease, Thyroid Disorder Additional Past Medical History / Comment(s): Hiatal hernia, uses O2 at nite, IDDM type I, only has right kidney,kidney cancer/L nephrectomy 2019 no chemo/no radiation, colon polyps History of Any Multi-Drug Resistant Organisms: None Reported Past Surgical History: Appendectomy, Hernia Repair Additional Past Surgical History / Comment(s): 09/19/22 colonoscopy 4 polyps, left kidney removal secondary to cancer, umbilical and abdominal hernia repair Past Anesthesia/Blood Transfusion Reactions: No Reported Reaction Smoking Status: Former smoker - Past Family History Mother Family Medical History: Myocardial Infarction ([place]) Additional Family Medical History / Comment(s): maternal grandmother had diabetes Sister(s) Family Medical History: Cancer Medications and Allergies Home Medications Medication Instructions Recorded Confirmed Type Insulin Degludec [Tresiba 35 units SQ HS 12/29/18 09/20/22 History Flextouch U-100 Pen] Levothyroxine Sodium [Synthroid] 175 mcg PO QAM 12/29/18 09/20/22 History Tamsulosin HCl [Flomax] 0.4 mg PO QAM 12/29/18 09/20/22 History INSULIN ASPART (NovoLOG) [NovoLOG See Protocol SQ ACHS 12/30/18 09/20/22 History (formulary)] Budesonide-Formot 160-4.5 Mcg 2 puff INHALATION RT-BID 01/07/19 09/20/22 History [Symbicort 160-4.5 Mcg Inhaler] Albuterol Nebulized [Ventolin 2.5 mg INHALATION RT-QID 05/08/21 09/20/22 History Nebulized] Albuterol Sulfate [Ventolin HFA] 2 puff INHALATION RT-QID 05/08/21 09/20/22 H istory Budesonide [Pulmicort] 0.5 mg INHALATION RT-BID 05/08/21 09/20/22 History Bumetanide [BUMEX] 0.5 mg PO 1200 05/08/21 09/20/22 History Isosorbide Mononitrate ER [Imdur] 30 mg PO QAM 05/08/21 09/20/22 History Montelukast [Singulair] 10 mg PO HS 05/08/21 09/20/22 History Simvastatin [Zocor] 20 mg PO HS 05/08/21 09/20/22 History amLODIPine [Norvasc] 10 mg PO QAM 05/08/21 09/20/22 History carvediloL [Coreg] 12.5 mg PO AC-BID 05/08/21 09/20/22 History Calcium Carbonate [Tums] 500 mg PO QID PRN 09/18/22 09/20/22 History Pantoprazole Sodium [Protonix] 40 mg PO BID 09/18/22 09/20/22 History Acetaminophen Tab [Tylenol Tab] 500 mg PO Q6H 09/20/22 09/20/22 History Aspirin [Adult Low Dose Aspirin EC] 81 mg PO HS 09/20/22 09/20/22 History Cholecalciferol (Vitamin D3) 50 mcg PO QAM 09/20/22 09/20/22 History [Vitamin D3 (50 Mcg = 2000 Iu) Chew Tab] Thiamine [Vitamin B-1] 100 mg PO DAILY 09/20/22 09/20/22 History Allergies Allergy/AdvReac Type Severity Reaction Status Date / Time No Known Allergies Allergy Verified 09/20/22 08:30 Surgical - Exam Vital Signs Temp Pulse Resp BP Pulse Ox 97.4 F L 60 18 171/79 98 09/24/22 07:02 09/24/22 07:02 09/24/22 07:02 09/24/22 07:02 09/24/22 07:02 Results - Labs Abnormal Lab Results - Last 24 Hours (Table) 09/24/22 Range/Units 06:59 POC Glucose (mg/dL) 114 H (70-110) mg/dL
[2022-09-24] MEDS ORDERED: PROPOFOL 10 MG/ML 20 ML VIAL IV ONE (07:29)
[2022-09-24] MEDS ORDERED: LIDOCAINE 2% INJ 20 MG/ML (2 ML VIAL) ONE (07:29)
[2022-09-24 07:55] VITALS: RESP 16
--- NOTE | 2022-09-24 08:11 | P.PCN ---
Date of Procedure: 09/24/22 Description of Procedure: PREOPERATIVE DIAGNOSIS: Gastroesophageal reflux disease. Diaphragmatic hiatal hernia POSTOPERATIVE DIAGNOSIS: Esophageal neoplasm, malignant potential Gastroesophageal reflux disease Duodenal polyp OPERATION: Esophagogastroduodenoscopy with cold forceps biopsies along antrum, esophagus, and duodenal SURGEON: Helga Lee MD ANESTHESIA: MAC. INDICATIONS: The patient is a 72-year-old male who presents with reflux disease and hiatal hernia. Benefits and risks of the procedure were described. Informed consent was obtained. DESCRIPTION: The patient was brought into the endoscopy suite and laid in the left lateral decubitus position. An Olympus gastroscope was passed along the posterior oropharynx down to the distal esophagus where the squamocolumnar junction was encountered at 40 cm from the incisors. The stomach was entered and no bile reflux was found. Additional findings are listed below. Biopsies with cold forceps were obtained of the antrum. The first through third portion of the duodenum was examined. Retroflexion of the scope confirmed Hill grade 3 lower esophageal valve. The squamocolumnar junction demonstrated a friable circumferential neoplastic mass between 40-43 cm from the incisors concerning for malignant neoplasm multiple biopsies obtained. The stomach was desufflated. The patient tolerated the procedure well. FINDINGS: Squamocolumnar junction 40 cm from the incisors with 3 cm circumferential friable esophageal neoplasm the fibrinous exudate, multiple biopsies obtained Neoplasm GE junction, high malignant potential Hill grade 3 lower esophageal valve. LA grade D erosive esophagitis with esophageal neoplasm Duodenal polyps, multiple 2-3 mm with biopsies obtained, first portion Chronic gastritis with recent bleed RECOMMENDATIONS: 1. Await biopsies 2. Recommend omeprazole for gastroesophageal reflux disease Plan - Discharge Summary Discharge Rx Participant: No New Discharge Prescriptions: Continue Levothyroxine Sodium [Synthroid] 175 mcg PO QAM Tamsulosin HCl [Flomax] 0.4 mg PO QAM Insulin Degludec [Tresiba Flextouch U-100 Pen] 35 units SQ HS INSULIN ASPART (NovoLOG) [NovoLOG (formulary)] See Protocol SQ ACHS Budesonide-Formot 160-4.5 Mcg [Symbicort 160-4.5 Mcg Inhaler] 2 puff INHALATION RT-BID Simvastatin [Zocor] 20 mg PO HS Montelukast [Singulair] 10 mg PO HS Bumetanide [BUMEX] 0.5 mg PO 1200 amLODIPine [Norvasc] 10 mg PO QAM Albuterol Sulfate [Ventolin HFA] 2 puff INHALATION RT-QID Acetaminophen Tab [Tylenol] 500 mg PO Q6H Cholecalciferol (Vitamin D3) [Vitamin D3 (50 Mcg = 2000 Iu) Chew Tab] 50 mcg PO QAM Isosorbide Mononitrate ER [Imdur] 30 mg PO QAM carvediloL [Coreg] 12.5 mg PO AC-BID Budesonide [Pulmicort] 0.5 mg INHALATION RT-BID Albuterol Nebulized [Ventolin Nebulized] 2.5 mg INHALATION RT-QID Calcium Carbonate [Tums] 500 mg PO QID PRN PRN Reason: Indigestion Pantoprazole Sodium [Protonix] 40 mg PO BID Aspirin [Adult Low Dose Aspirin EC] 81 mg PO HS Thiamine [Vitamin B-1] 100 mg PO DAILY Discharge Medication List Insulin Degludec [Tresiba Flextouch U-100 Pen] 35 units SQ HS 12/29/18 [History] Levothyroxine Sodium [Synthroid] 175 mcg PO QAM 12/29/18 [History] Tamsulosin HCl [Flomax] 0.4 mg PO QAM 12/29/18 [History] INSULIN ASPART (NovoLOG) [NovoLOG (formulary)] See Protocol SQ ACHS 12/30/18 [History] Budesonide-Formot 160-4.5 Mcg [Symbicort 160-4.5 Mcg Inhaler] 2 puff INHALATION RT-BID 01/07/19 [History] Albuterol Nebulized [Ventolin Nebulized] 2.5 mg INHALATION RT-QID 05/08/21 [History] Albuterol Sulfate [Ventolin HFA] 2 puff INHALATION RT-QID 05/08/21 [History] Budesonide [Pulmicort] 0.5 mg INHALATION RT-BID 05/08/21 [History] Bumetanide [BUMEX] 0.5 mg PO 1200 05/08/21 [History] Isosorbide Mononitrate ER [Imdur] 30 mg PO QAM 05/08/21 [History] Montelukast [Singulair] 10 mg PO HS 05/08/21 [History] Simvastatin [Zocor] 20 mg PO HS 05/08/21 [History] amLODIPine [Norvasc] 10 mg PO QAM 05/08/21 [History] carvediloL [Coreg] 12.5 mg PO AC-BID 05/08/21 [History] Calcium Carbonate [Tums] 500 mg PO QID PRN 09/18/22 [History] Pantoprazole Sodium [Protonix] 40 mg PO BID 09/18/22 [History] Acetaminophen Tab [Tylenol] 500 mg PO Q6H 09/20/22 [History] Aspirin [Adult Low Dose Aspirin EC] 81 mg PO HS 09/20/22 [History] Cholecalciferol (Vitamin D3) [Vitamin D3 (50 Mcg = 2000 Iu) Chew Tab] 50 mcg PO QAM 09/20/22 [History] Thiamine [Vitamin B-1] 100 mg PO DAILY 09/20/22 [History] Follow up Appointment(s)/Referral(s): Helag Lee MD [STAFF PHYSICIAN] - 10/02/22 1:00 pm Patient Instructions/Handouts: GERD (Gastroesophageal Reflux Disease) (ED) Discharge Disposition: HOME SELF-CARE
[2022-09-24 08:34] VITALS: BP 143/60; PULSE 66
== END 2022-09-24 08:40 | disposition home or self-care (01) ==
LOC: ORWHC2ENDO 06:39
PROVIDERS: ATTEND Surgery Plastic and Reconstructive Surgery
DX: K29.50 Unspecified chronic gastritis without bleeding (principal); K44.9 Diaphragmatic hernia without obstruction or gangrene; K21.9 Gastro-esophageal reflux disease without esophagitis; K31.7 Polyp of stomach and duodenum
CPT/HCPCS: 88305; 88342; 88341; 43239; J2704; J2001

== ENCOUNTER 2022-11-15 12:06 | Inpatient (IN) | payer MEDICARE, BC ==
--- NOTE | 2022-11-15 11:33 | P.GSHP ---
History of Present Illness H&P Date: 11/15/22 CHIEF COMPLAINT: Esophageal cancer HISTORY OF PRESENT ILLNESS: The patient is a 72-year-old male newly diagnosed with esophageal cancer. He reports intermittent dysphagia and troubles with nutrition. He needs a Mediport placement for chemotherapy including gastrostomy tube placement for nutritional needs. PAST MEDICAL HISTORY: See list and reviewed PAST SURGICAL HISTORY: See list and reviewed CURRENT MEDICATIONS: See list and reviewed ALLERGIES: See list and reviewed SOCIAL HISTORY: See list and reviewed FAMILY HISTORY: See list and reviewed REVIEW OF ORGAN SYSTEMS: CONSTITUTIONAL: No fevers or chills RESPIRATORY: No pneumonia. No dyspnea on exertion. CARDIOVASCULAR: No recent chest pain. No history of blood clots PHYSICAL EXAMINATION: Vital signs: Stable GENERAL: Well developed and in no acute distress. Pleasant. HEENT: No sclera icterus. Extraocular movements grossly intact. Moist buccal mucosa. Head is atraumatic, normocephalic. Hears conversational speech. No nasal drainage. NECK: Supple without lymphadenopathy. No JV distention. CHEST: Non-labored respirations and equal bilateral excursions. CARDIOVASCULAR: Regular rate and rhythm. Palpable 2+ radial pulses. ABDOMEN: Nontender. MUSCULOSKELETAL: No clubbing, cyanosis or edema. NEUROLOGIC: No focal or lateralizing signs. PSYCH: Appropriate affect. Alert and oriented to person, place and time. ASSESSMENT: 1. Esophageal cancer 2. Need for chemotherapeutic access. PLAN: 1. Port-A-Cath placement for chemotherapy access 2. Upper endoscopy with gastrostomy tube placement for esophageal cancer and inadequate nutrition Past Medical History Past Medical History: Asthma, Cancer, Diabetes Mellitus, GERD/Reflux, Hyperlipidemia, Hypertension, Thyroid Disorder Additional Past Medical History / Comment(s): hiatal hernia, only has right kidney,kidney cancer left removed. esophageal cancer History of Any Multi-Drug Resistant Organisms: None Reported Past Surgical History: Appendectomy, Hernia Repair Additional Past Surgical History / Comment(s): left kidney removal secondary to cancer umbilical and abdominal hernia repair, colonoscopy. EGD Past Anesthesia/Blood Transfusion Reactions: No Reported Reaction Smoking Status: Former smoker - Past Family History Mother Family Medical History: Myocardial Infarction ([place]) Additional Family Medical History / Comment(s): maternal grandmother had diabetes Sister(s) Family Medical History: Cancer Additional Family Medical History / Comment(s): Liver cancer, breast cancer. another sister breast cancer Father Family Medical History: Cancer Additional Family Medical History / Comment(s): prostate cancer. Medications and Allergies Home Medications Medication Instructions Recorded Confirmed Type Insulin Degludec [Tresiba 26 units SQ HS 12/29/18 11/12/22 History Flextouch U-100 Pen] Levothyroxine Sodium [Synthroid] 175 mcg PO QAM 12/29/18 11/12/22 History Tamsulosin HCl [Flomax] 0.4 mg PO QAM 12/29/18 11/12/22 History INSULIN ASPART (NovoLOG) [NovoLOG See Protocol SQ ACHS 12/30/18 11/12/22 History (formulary)] Budesonide-Formot 160-4.5 Mcg 2 puff INHALATION RT-BID 01/07/19 11/12/22 History [Symbicort 160-4.5 Mcg Inhaler] Albuterol Nebulized [Ventolin 2.5 mg INHALATION RT-QID 05/08/21 11/12/22 History Nebulized] Albuterol Sulfate [Ventolin HFA] 2 puff INHALATION RT-QID 05/08/21 11/12/22 History Budesonide [Pulmicort] 0.5 mg INHALATION RT-BID 05/08/21 11/12/22 History Bumetanide [BUMEX] 0.5 mg PO 1200 05/08/21 11/12/22 History Isosorbide Mononitrate ER [Imdur] 30 mg PO QAM 05/08/21 11/12/22 History Montelukast [Singulair] 10 mg PO HS 05/08/21 11/12/22 History Simvastatin [Zocor] 20 mg PO HS 05/08/21 11/12/22 History amLODIPine [Norvasc] 10 mg PO QAM 05/08/21 11/12/22 History carvediloL [Coreg] 12.5 mg PO AC-BID 05/08/21 11/12/22 History Calcium Carbonate [Tums] 500 mg PO QID PRN 09/18/22 11/12/22 History Pantoprazole Sodium [Protonix] 40 mg PO BID 09/18/22 11/12/22 History Acetaminophen Tab [Tylenol] 1,000 mg PO Q6H 09/20/22 11/12/22 History Aspirin [Adult Low Dose Aspirin EC] 81 mg PO HS 09/20/22 11/12/22 History Cholecalciferol (Vitamin D3) 50 mcg PO QAM 09/20/22 11/12/22 History [Vitamin D3 (50 Mcg = 2000 Iu) Chew Tab] Thiamine [Vitamin B-1] 100 mg PO DAILY 09/20/22 11/12/22 History Ondansetron [Zofran] 8 mg PO Q8HR PRN 11/12/22 11/12/22 History Sucralfate [Carafate] 1 gm PO QID 11/12/22 11/12/22 History Allergies Allergy/AdvReac Type Severity Reaction Status Date / Time No Known Allergies Allergy Verified 11/12/22 12:39
[~2022-11-15 12:06] MED LIST changes: +ACETAMINOPHEN TAB 500 MG TAB PO PRN; -LACTATED RINGERS 1,000 ML IV SCH; -LIDOCAINE 1% (10MG/ML) FOR IV START INTRADERMA PRN; +Pre Op ABX Message 1 EACH MISC MISCELLANE ONE; +metroNIDAZOLE-NS PMX 500 MG in SALINE 100 100ML.BAG IVPB PRN
[2022-11-15] MEDS ORDERED: LACTATED RINGERS 1,000 ML IV ONE (12:46)
[2022-11-15] MEDS ORDERED: ONDANSETRON 4 MG/2 ML VIAL ONE (12:52)
[2022-11-15] MEDS ORDERED: DEXAMETHASONE SOD PHOSPHATE 4 MG/ML 1 ML VIAL IV ONE (12:54)
[2022-11-15 12:57] LABS: Basophils % (A) 0 %; Eosinophils # (A) 0.1 k/uL (0-0.7); Eosinophils % (A) 1 %; HCT 30.1 % (39.0-53.0); HGB 9.9 gm/dL (13.0-17.5); Hypochromasia Slight; Lymphocytes # (A) 0.9 k/uL (1.0-4.8); Lymphocytes % (A) 11 %; MCH 28.4 pg (25.0-35.0); MCHC 32.8 g/dL (31.0-37.0); MCV 86.4 fL (80.0-100.0); Mean Platelet Volume 8.9; Monocytes # (A) 0.5 k/uL (0-1.0); Monocytes % (A) 6 %; Neutrophils # (A) 6.8 k/uL (1.3-7.7); Neutrophils % (A) 81 %; Platelet Count 308 k/uL (150-450); RBC 3.49 m/uL (4.30-5.90); WBC 8.5 k/uL (3.8-10.6)
[2022-11-15 13:04] LABS: Glucose,Whole Blood 149 mg/dL (70-110)
[2022-11-15 13:16] LABS: ALT 14 U/L (4-49); AST 17 U/L (17-59); African American GFR (CKD) 64 (>60 ml/min/1.73 sqM); Albumin 3.3 g/dL (3.5-5.0); Alkaline Phosphatase 76 U/L (38-126); Anion Gap 8 mmol/L; Blood Urea Nitrogen 20 mg/dL (9-20); Calcium 9.3 mg/dL (8.4-10.2); Carbon Dioxide 28 mmol/L (22-30); Chloride 100 mmol/L (98-107); Glucose 147 mg/dL (74-99); Non-African American GFR(CKD) 55 (>60 ml/min/1.73 sqM); Potassium 3.2 mmol/L (3.5-5.1); Sodium 136 mmol/L (137-145); Total Bilirubin 0.4 mg/dL (0.2-1.3); Total Protein 6.1 g/dL (6.3-8.2)
[2022-11-15 13:20] LABS: Prothrombin Time 10.4 sec (9.0-12.0)
[2022-11-15] MEDS ORDERED: SUCCINYLCHOLINE CHLORIDE 200 MG/10 ML VIAL IV ONE (13:41)
[2022-11-15] MEDS ORDERED: PROPOFOL 10 MG/ML 20 ML VIAL IV ONE (13:41)
[2022-11-15] MEDS ORDERED: ROCURONIUM 10 MG/ML (5 ML VIAL) IV ONE (13:41)
[2022-11-15] MEDS ORDERED: NEOSTIGMINE 1 MG/ML 10 ML VIAL ONE (13:41)
[2022-11-15] MEDS ORDERED: MIDAZOLAM 2 MG/2 ML VIAL ONE (13:41)
[2022-11-15] MEDS ORDERED: GLYCOPYRROLATE 0.2 MG/ML 2 ML VIAL ONE (13:41)
[2022-11-15] MEDS ORDERED: fentaNYL (PF) 50 MCG/ML 2 ML AMP ONE (13:41)
[2022-11-15] MEDS ORDERED: LIDOCAINE 2% INJ 20 MG/ML (2 ML VIAL) ONE (13:41)
[2022-11-15] MEDS ORDERED: LIDOCAINE 0.5%-EPI 1:200,000 50 ML VIAL SQ ONE ×4 (14:26→14:32)
--- NOTE | 2022-11-15 15:21 | FL ---
Fluoroscopy History: PORTACATH ASSIST PORT A CATH INSERTION, 1SEC FL TIME, [id number]
[2022-11-15] MEDS ORDERED: ACETAMINOPHEN IV (For NPO) 1,000 MG in EMPTY BAG 1 BAG IVPB ONE (16:02)
[2022-11-15] MEDS ORDERED: NALOXONE 0.4 MG/ML 1 ML VIAL IV PRN (16:02)
--- NOTE | 2022-11-15 16:12 | P.PN ---
Subjective Progress Note Date: 11/15/22 CHIEF COMPLAINT: Esophageal cancer HISTORY OF PRESENT ILLNESS: The patient is a 72-year-old male with esophageal cancer. Upper endoscopy completed with findings of near complete obstruction of the distal esophagus. Patient reports more difficulty with drinking liquids. He reports unintentional weight loss over 40+ pounds and 1-2 months. Additionally, he reports chest pain. ROS: No fevers or chills. No productive sputum PHYSICAL EXAM: VITAL SIGNS: Reviewed CONSTITUTIONAL: Well developed and in no acute distress. EYES: Conjuctivae without sclera icterus. Extraocular movements grossly intact. HEAD, EARS, NOSE, THROAT: Moist buccal mucosa. Head is atraumatic, normocephalic. Hears conversational speech. No nasal drainage. RESPIRATORY: Non-labored respirations and equal bilateral excursions. CARDIOVASCULAR: Palpable 2+ radial pulses. ABDOMEN: Scaphoid. Gastrostomy tube intact without bleeding. Gastrostomy tube polyp at 1.5 cm. MUSCULOSKELETAL: No gross deformity of the lower extremities noted. No clubbing. No cyanosis. SKIN: Good skin turgor. Well perfused. NEUROLOGIC: Cranial nerves II through XII grossly intact. No focal or lateralizing signs. PSYCH: Appropriate affect. Alert and oriented to person, place and time. CLINICAL LABS: Ordered. ASSESSMENT: 1. Esophageal cancer with near obstruction 2. Dysphagia 3. Severe protein malnutrition 4. Congestive heart failure with diastolic dysfunction PLAN: 1. Recommend inpatient hospitalization over 2 nights with finding of near complete obstruction of esophagus 2. Oncology consultation 3. Dietitian consultation for tube feeds 4. Home health care consultation 5. Social work consultation 6. Medical management consultation with hospitalist Objective - Vital Signs Vital signs: Vital Signs Temp 97.6 F 11/15/22 15:37 Pulse 64 11/15/22 16:00 Resp 16 11/15/22 16:00 BP 125/67 11/15/22 16:00 Pulse Ox 99 11/15/22 16:00 FiO2 Intake & Output 11/14/22 11/15/22 11/15/22 18:59 06:59 18:59 Intake Total 850 Output Total 5 Balance 845 Weight 88.7 kg Intake: IV 850 Output: Estimated Blood Loss 5 - Labs CBC & Chem 7: 11/15/22 12:46 11/15/22 12:46 Labs: Abnormal Lab Results - Last 24 Hours (Table) 11/15/22 11/15/22 11/15/22 Range/Units 12:46 12:46 12:46 RBC 3.49 L (4.30-5.90) m/uL Hgb 9.9 L (13.0-17.5) gm/dL Hct 30.1 L (39.0-53.0) % Lymphocytes # 0.9 L (1.0-4.8) k/uL Sodium 136 L (137-145) mmol/L Potassium 3.2 L (3.5-5.1) mmol/L Creatinine 1.28 H (0.66-1.25) mg/dL Glucose 147 H (74-99) mg/dL POC Glucose (mg/dL) 149 H (70-110) mg/dL Total Protein 6.1 L (6.3-8.2) g/dL Albumin 3.3 L (3.5-5.0) g/dL
--- NOTE | 2022-11-15 16:20 | P.OP ---
Date of Procedure: 11/15/22 Description of Procedure: SURGEON: MARILYN MELLO MD APPLIED MATHEMATICIAN: None. PREOPERATIVE DIAGNOSES: 1. Esophageal cancer 2. Need for chemotherapeutic access. 3. Hypertensive heart disease with congestive heart failure 4. Dysphagia 5. Atypical chest pain 6. Diastolic congestive heart failure 7. Thiamine deficiency 8. Hyperlipidemia 9. Gastroesophageal reflux disease 10. Hypothyroidism 11. Chronic obstructive pulmonary disease 12. Diabetes type 2, insulin-dependent 13. Diabetic nephropathy 14. Unintentional weight loss POSTOPERATIVE DIAGNOSES: 1. Esophageal cancer 2. Need for chemotherapeutic access. 3. Hypertensive heart disease with congestive heart failure 4. Dysphagia 5. Atypical chest pain 6. Diastolic congestive heart failure 7. Thiamine deficiency 8. Hyperlipidemia 9. Gastroesophageal reflux disease 10. Hypothyroidism 11. Chronic obstructive pulmonary disease 12. Diabetes type 2, insulin-dependent 13. Diabetic nephropathy 14. Unintentional weight loss PROCEDURES PERFORMED: 1. Ultrasound guided central venous access of the right internal jugular venous vein. 2. Fluoroscopic guidance for central venous access right internal jugular vein less than 1 seconds. 3. Placement of right internal jugular power port 6 [place] by [employer], X[employer] Plus Port 4. Intraoperative esophagogastroduodenoscopy with PEG tube placement (please see separate operative report) ANESTHESIA: GENERAL with local. ESTIMATED BLOOD LOSS: 5 mL. SPECIMENS REMOVED: None. COMPLICATIONS: None. FINDINGS: 1. No thrombus encountered along the right carotid artery or internal jugular vein. 2. Access of the right internal jugular vein under ultrasound guidance. 3. Fluoroscopy of less than 1 seconds. INDICATIONS: The patient is a 72-year-old male recently diagnosed with esophageal cancer. He presents with atypical chest pain, dysphagia including unintentional weight loss. Reports difficulty with oral intake. He presents for chemotherapeutic access. Benefits and risks of surgical intervention were described including bleeding, infection, mechanical problems with his port. Informed consent was obtained. DESCRIPTION OR PROCEDURE: Patient was brought into the operating room, laid in supine position. After general induction, the chest and right neck were prepped and draped in a standard sterile fashion including the shoulder with ChloraPrep. Timeout protocol was confirmed with the surgical team regarding the patient's name, procedure to be performed including preoperative medications for which she received IV antibiotics. Bilateral SCDs were placed. An ultrasound was used to capture views of the right internal jugular vein including right carotid artery, which was patent and without thrombus along its course. The right IJ was then localized using anesthetic for the skin. A 16 [place] needle was used to access the IJ. A guidewire was advanced into the IJ with dark nonpulsatile venous blood. Two fingerbreadths distal to the clavicle, on the lateral third, a transverse 1.5 to 2 cm incision was deepened into the skin after localizing the skin. A pocket was created for the port. The port on the back table was flushed with heparinized saline and then attached to the catheter tubing. An adapter was fastened to the actual port site over the tubing. The port easily had fit snug into the pocket. A subcutaneous tunneler was placed along the open end of the tubing and brought out through the separate stab incision. Fluoroscopic guidance confirmed no kinking along the tubing and the port site. Next, the J-wire was exchanged for a catheter sheath for which the tubing was cut to 26 cm and then advanced through the catheter sheath. The Peel-away sheath was then removed and the tubing was secured at the junction of the superior vena cava as well as the right atrium. The tubing was found to be crossed however functional. This was all done under fluoroscopic guidance under 1 seconds. Easy pullback as well as return and aspiration was obtained of the port site. The skin incision was closed using layers using 3-0 Vicryl for the subcu followed by 4-0 Monocryl in a running subcuticular fashion. At the stick site this was also reapproximated using 4-0 Monocryl. The incisions were covered with Optifoam, The skin was cleansed and Exofin liquid glue was applied. Optifoam dressing was placed over the port site. A total of 40 mL of local anesthetic was placed. At the end of the procedure, needle, sponge, and instrument count was verified correct by cardiovascular surgical tech. Heparin lock of 4 mL was placed. Attention was now brought to the endoscopic portion of the procedure. Please see separate operative report.
[2022-11-15 16:28] LABS: Glucose,Whole Blood 176 mg/dL (70-110)
--- NOTE | 2022-11-15 16:29 | P.PCN ---
Date of Procedure: 11/15/22 Description of Procedure: PREOPERATIVE DIAGNOSIS: Esophageal cancer with obstruction Dysphagia Severe protein malnutrition secondary to inadequate protein intake. Unintentional weight loss Anorexia secondary to malignancy. POSTOPERATIVE DIAGNOSIS: Esophageal cancer with obstruction Dysphagia Severe protein malnutrition secondary to inadequate protein intake. Unintentional weight loss Anorexia secondary to malignancy. OPERATION: Intraoperative esophagogastroduodenoscopy with percutaneous endoscopic ga strostomy tube placement 20-Micronesian, EndoVive Pull technique [employer]. SURGEON: Helga Lee MD ANESTHESIA: GENERAL INDICATIONS: The patient is a 72-year-old male who presents with esophageal cancer, dysphagia, unintentional weight loss with odynophagia. Reports difficulty drinking liquids. Benefits and risks of the procedure were described. Informed consent was obtained. DESCRIPTION: After completion of Port-A-Cath placement, endoscopy team presented to the operating room. The patient was under general anesthetic. Antibiotics Ancef and Flagyl was administered prior. An Olympus gastroscope was passed along the posterior oropharynx down the distal esophagus where easily friable circumferential mass was identified with foodstuff causing near completion of the esophagus. With gentle sustained pressure, the stomach was entered. Gastritis was encountered. Retained food was found along the antrum. Food was obscuring the pylorus. A point along the anterior surface, greater curvature of the stomach was selected and identified via illumination of subcutaneous tissue. The scope was passed to the duodenum which was unremarkable. The skin was cleansed with ChloraPrep and an incision was made after illuminating the proposed PEG tube site. Using a 16-Micronesian needle, a guidewire was fed into the stomach under endoscopic visualization. A snare was used to pull the guidewireout of the mouth. Over the guidewire, the PEG tube was pulled over the guidewire until it exited through the skin incision. The guidewire was removed. The round fitting clasp was placed over the gastrostomy tube and fixed at 2 cm at the skin. A feeding adapter was placed at the cut end of the feeding tube. An endoscopic captured image of the gastrostomy tube within the stomach was made. The patient tolerated the procedure well. Findings: 1. Moderate food bolus within the stomach 2. Circumferential easily friable esophageal mass with near complete obstruction 3. Duodenum unremarkable 4. Gastrostomy tube at anterior surface of gastric body, 2 cm clasp Disposition: 1. Recommend admission to the hospital due to esophageal obstruction and severe protein malnutrition 2. Will start tube feeds within 24 hours with goal determined with graphite grinder. 3. Urgent oncology consultation due to rapidly progressive esophageal cancer growth
--- NOTE | 2022-11-15 17:00 | XR ---
EXAMINATION TYPE: XR chest 1V confirm line [facility] DATE OF EXAM: 11/15/2022 4:54 PM COMPARISON: Chest radiographs from 03/09/2022 TECHNIQUE: XR chest 1V confirm line [facility] Portable AP radiograph of the chest. CLINICAL INDICATION:Male, 72 years old with history of Port placement; FINDINGS: Patient is rotated which limits evaluation. Lungs/Pleura: There is no evidence of pleural effusion, focal consolidation, or pneumothorax. Chroni c senescent parenchymal change. Similar bibasilar patchy airspace opacities. Calcified granuloma with in the left lung base. Hyperinflation compatible with COPD. Pulmonary vascularity: Unremarkable. Heart/mediastinum: Cardiomediastinal silhouette is prominent in size. Musculoskeletal: No acute osseous pathology. Other findings: None Lines/Tubes: [id number]-[id number] projecting over the right hemithorax with distal tip projecting over the mid superior v william cava. IMPRESSION: 1. Interval placement of right-sided Govaim-w-Yhvb with tip projecting over the mid superior vena cav a. No pneumothorax. 2. COPD changes with similar bibasilar patchy airspace opacities likely representing scarring/fibrosi s.
[2022-11-15] MEDS: HYDROmorphone 1 MG/ML 1 ML SYRINGE IVP PRN (19:53)
[2022-11-15] MEDS ORDERED: BUDESONIDE 0.5 MG/2 ML NEBU INHALATION SCH (20:00)
[2022-11-15] MEDS ORDERED: ALBUTEROL HFA INHALER INHALATION SCH (20:00)
[2022-11-15 20:18] LABS: Basophils % (A) 0 %; Eosinophils % (A) 0 %; HCT 30.4 % (39.0-53.0); HGB 9.5 gm/dL (13.0-17.5); Hypochromasia Slight; Lymphocytes # (A) 0.4 k/uL (1.0-4.8); Lymphocytes % (A) 4 %; MCH 27.3 pg (25.0-35.0); MCHC 31.2 g/dL (31.0-37.0); MCV 87.3 fL (80.0-100.0); Mean Platelet Volume 8.8; Monocytes # (A) 0.4 k/uL (0-1.0); Monocytes % (A) 3 %; Neutrophils # (A) 9.8 k/uL (1.3-7.7); Neutrophils % (A) 92 %; Platelet Count 279 k/uL (150-450); RBC 3.48 m/uL (4.30-5.90); RDW 14.8 % (11.5-15.5); WBC 10.6 k/uL (3.8-10.6)
[2022-11-15 20:32] LABS: ALT 13 U/L (4-49); AST 17 U/L (17-59); African American GFR (CKD) 76 (>60 ml/min/1.73 sqM); Albumin 3.3 g/dL (3.5-5.0); Alkaline Phosphatase 68 U/L (38-126); Anion Gap 8 mmol/L; Blood Urea Nitrogen 19 mg/dL (9-20); Calcium 8.8 mg/dL (8.4-10.2); Carbon Dioxide 27 mmol/L (22-30); Chloride 101 mmol/L (98-107); Glucose 166 mg/dL (74-99); Non-African American GFR(CKD) 66 (>60 ml/min/1.73 sqM); Phosphorus 2.9 mg/dL (2.5-4.5); Potassium 3.5 mmol/L (3.5-5.1); Sodium 136 mmol/L (137-145); Total Bilirubin 0.4 mg/dL (0.2-1.3); Total Protein 5.9 g/dL (6.3-8.2)
[2022-11-15] MEDS: ALBUTEROL NEBULIZED 2.5 MG/3 ML INHALATION SCH (20:32)
[2022-11-15] MEDS: SYMBICORT 160-4.5 MCG INHALER INHALATION SCH (20:32)
[2022-11-15] MEDS ORDERED: INSULIN DETEMIR (LEVEMIR) 100 UNIT/ML SYR SQ SCH (21:00)
[2022-11-15] MEDS: carvediloL 12.5 MG TAB PO SCH (22:19)
[2022-11-15] MEDS: 0.9% NACL WITH KCL 40 MEQ/L 1,000 ML IV SCH ×2 (22:36→23:56)
[2022-11-16] MEDS ORDERED: DEXTROSE 50% SYRINGE 50 ML IVP PRN ×2 (03:15)
--- NOTE | 2022-11-16 03:26 | P.CONS ---
History of Present Illness - Reason for Consult Consult date: 11/15/22 medical management of DM - Chief Complaint dysphagia - History of Present Illness 72 year old male with esophageal cancer patient coming in for PEG tube insertion due to severe dysphagia secondary to esophagela cancer. patient was diagnosed with esophageal cancer around late last year. iniatially thought to have hiatal hernia March 2022, then confirmed an esophageal mass. he has not startd chemotherapy yet, and he reports significant weight loss. due to dysphagia to solid food. he quit smoking years ago , and denies alcohol or illicit drugs he denies any fever, chills, chest pain , diarrhea or changes in bowel movement he does report food intolerance and repeated vomiting after meals , and has lost significant weight patient denies any observed immediate post op complication which he tolerated well. Review of Systems Pertinent positives as noted in HPI. 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 esophageal cancer History of Any Multi-Drug Resistant Organisms: None Reported Past Surgical History: Appendectomy, Hernia Repair Additional Past Surgical History / Comment(s): left kidney removal secondary to cancer umbilical and abdominal hernia repair, colonoscopy. EGD Past Anesthesia/Blood Transfusion Reactions: No Reported Reaction Past Psychological History: No Psychological Hx Reported Smoking Status: Former smoker Past Alcohol Use History: Rare Additional Past Alcohol Use History / Comment(s): quit >20yrs ago Past Drug Use History: None Reported - Past Family History Mother Family Medical History: Myocardial Infarction ([place]) Additional Family Medical History / Comment(s): maternal grandmother had diabetes Sister(s) Family Medical History: Cancer Additional Family Medical History / Comment(s): Liver cancer, breast cancer. another sister breast cancer Father Family Medical History: Cancer Additional Family Medical History / Comment(s): prostate cancer. Medications and Allergies Home Medications Medication Instructions Recorded Confirmed Type Insulin Degludec [Tresiba 26 units SQ HS 12/29/18 11/12/22 History Flextouch U-100 Pen] Levothyroxine Sodium [Synthroid] 175 mcg PO QAM 12/29/18 11/12/22 History Tamsulosin HCl [Flomax] 0.4 mg PO QAM 12/29/18 11/12/22 History INSULIN ASPART (NovoLOG) [NovoLOG See Protocol SQ ACHS 12/30/18 11/12/22 History (formulary)] Budesonide-Formot 160-4.5 Mcg 2 puff INHALATION RT-BID 01/07/19 11/12/22 History [Symbicort 160-4.5 Mcg Inhaler] Albuterol Nebulized [Ventolin 2.5 mg INHALATION RT-QID 05/08/21 11/12/22 History Nebulized] Albuterol Sulfate [Ventolin HFA] 2 puff INHALATION RT-QID 05/08/21 11/12/22 History Budesonide [Pulmicort] 0.5 mg INHALATION RT-BID 05/08/21 11/12/22 History Bumetanide [BUMEX] 0.5 mg PO 1200 05/08/21 11/12/22 History Isosorbide Mononitrate ER [Imdur] 30 mg PO QAM 05/08/21 11/12/22 History Montelukast [Singulair] 10 mg PO HS 05/08/21 11/12/22 History Simvastatin [Zocor] 20 mg PO HS 05/08/21 11/12/22 History amLODIPine [Norvasc] 10 mg PO QAM 05/08/21 11/12/22 History carvediloL [Coreg] 12.5 mg PO AC-BID 05/08/21 11/12/22 History Calcium Carbonate [Tums] 500 mg PO QID PRN 09/18/22 11/12/22 History Pantoprazole Sodium [Protonix] 40 mg PO BID 09/18/22 11/12/22 History Acetaminophen Tab [Tylenol] 1,000 mg PO Q6H 09/20/22 11/12/22 History Aspirin [Adult Low Dose Aspirin EC] 81 mg PO HS 09/20/22 11/12/22 History Cholecalciferol (Vitamin D3) 50 mcg PO QAM 09/20/22 11/12/22 History [Vitamin D3 (50 Mcg = 2000 Iu) Chew Tab] Thiamine [Vitamin B-1] 100 mg PO DAILY 09/20/22 11/12/22 History Ondansetron [Zofran] 8 mg PO Q8HR PRN 11/12/22 11/12/22 History Sucralfate [Carafate] 1 gm PO QID 11/12/22 11/12/22 History Allergies Allergy/AdvReac Type Severity Reaction Status Date / Time No Known Allergies Allergy Verified 11/12/22 12:39 Physical Exam Vitals: Vital Signs Temp Pulse Pulse Pulse Pulse Resp BP 11/15/22 21:49 97.6 F 64 17 11/15/22 20:43 72 11/15/22 20:34 69 11/15/22 19:17 97.6 F 64 17 11/15/22 18:15 64 16 11/15/22 17:45 64 16 11/15/22 17:15 61 16 11/15/22 16:45 61 16 11/15/22 16:30 62 16 11/15/22 16:15 62 16 11/15/22 16:00 64 16 11/15/22 15:45 64 16 11/15/22 15:37 97.6 F 63 14 11/15/22 12:46 98.2 F 73 16 130/64 BP Pulse Ox 11/15/22 21:49 140/64 99 11/15/22 20:43 11/15/22 20:34 11/15/22 19:17 140/64 99 11/15/22 18:15 124/65 96 11/15/22 17:45 133/64 96 11/15/22 17:15 115/62 98 11/15/22 16:45 112/60 96 11/15/22 16:30 106/63 97 11/15/22 16:15 121/61 95 11/15/22 16:00 125/67 99 11/15/22 15:45 119/65 100 11/15/22 15:37 128/58 100 11/15/22 12:46 97 Intake and Output 11/15/22 11/15/22 11/15/22 06:59 14:59 22:59 Intake Total 850 350 Output Total 5 Balance 845 350 Intake: IV 850 350 Output: Estimated Blood Loss 5 Other: Weight 88.7 kg 88.7 kg Constitutional: No acute distress, conversant, pleasant Eyes: Anicteric sclerae, moist conjunctiva, Pupils equal round reactive to light ENMT: NC/AT Oropharynx clear, no erythema, or exudates Neck: Supple, no masses, or JVD No carotid bruits No thyromegaly Lungs: Clear to auscultation Clear to percussion Normal respiratory effort, no accessory muscle use Cardiovascular: Heart regular in rate and rhythm, No murmurs, gallops, or rubs No peripheral edema Abdominal: Soft, peg tube in place , clean base, no discharge Nontender, no guarding, rebound or rigidity Abdomen moving with respiration Normoactive bowel sounds No hepatomegaly, No splenomegaly No palpable mass No abdominal wall hernia noted Skin: Normal temperature, tone, texture, turgor Extremities: No digital cyanosis No clubbing Pedal pulses intact and symmetrical Radial pulses intact and symmetrical No calf tenderness Psychiatric: Alert and oriented to person, place and time Neuro Muscles Strength 5/5 in all 4 extremities Sensation to light touch grossly present throughout Cranial nerves II-XII grossly intact Lymphatics: no palpable cervical or supraclavicular lymph nodes Results CBC & Chem 7: 11/15/22 19:57 11/15/22 19:57 Labs: Abnormal Lab Results - Last 24 Hours (Table) 11/15/22 11/15/22 11/15/22 Range/Units 12:46 12:46 12:46 RBC 3.49 L (4.30-5.90) m/uL Hgb 9.9 L (13.0-17.5) gm/dL Hct 30.1 L (39.0-53.0) % Neutrophils # (1.3-7.7) k/uL Lymphocytes # 0.9 L (1.0-4.8) k/uL Sodium 136 L (137-145) mmol/L Potassium 3.2 L (3.5-5.1) mmol/L Creatinine 1.28 H (0.66-1.25) mg/dL Glucose 147 H (74-99) mg/dL POC Glucose (mg/dL) 149 H (70-110) mg/dL Total Protein 6.1 L (6.3-8.2) g/dL Albumin 3.3 L (3.5-5.0) g/dL 11/15/22 11/15/22 11/15/22 Range/Units 16:26 19:57 19:57 RBC 3.48 L (4.30-5.90) m/uL Hgb 9.5 L (13.0-17.5) gm/dL Hct 30.4 L (39.0-53.0) % Neutrophils # 9.8 H (1.3-7.7) k/uL Lymphocytes # 0.4 L (1.0-4.8) k/uL Sodium 136 L (137-145) mmol/L Potassium (3.5-5.1) mmol/L Creatinine (0.66-1.25) mg/dL Glucose 166 H (74-99) mg/dL POC Glucose (mg/dL) 176 H (70-110) mg/dL Total Protein 5.9 L (6.3-8.2) g/dL Albumin 3.3 L (3.5-5.0) g/dL Assessment and Plan Assessment: prgressive dysphagia , s/p PEG tube insertion esophageal cancer DM resume basal insulin initiate insulin sliding scale AC-TID chronic anemia denies GI bleeding Hgb 9.5 most likely secondary to cancer [place] mild persistent resume albuterol and symbicort hypothyroid resume levothyroxine hypertension reysme amlodipine , carvidelol and imdur CAD resume Aspirin and statin blood work reviewed , unremarkable , BUN 19, cr 1.11 , Na 136, K 3.5 full code DVT PPX lovenox sc daily
[2022-11-16 05:54] LABS: Glucose,Whole Blood 183 mg/dL (70-110)
[2022-11-16] MEDS: INSULIN ASPART (NovoLOG) 100 UNIT/ML VIAL SQ SCH ×2 (06:08→12:33)
[2022-11-16] MEDS: carvediloL 12.5 MG TAB PO SCH (06:09)
[2022-11-16] MEDS ORDERED: LEVOTHYROXINE 88 MCG TAB PO SCH (06:30)
[2022-11-16] MEDS ORDERED: PANTOPRAZOLE 40 MG TABLET PO SCH (07:30)
[2022-11-16] MEDS: SYMBICORT 160-4.5 MCG INHALER INHALATION SCH (08:50)
[2022-11-16] MEDS: ALBUTEROL NEBULIZED 2.5 MG/3 ML INHALATION SCH ×3 (08:50→15:49)
[2022-11-16] MEDS ORDERED: ISOSORBIDE MONONITRATE ER 30 MG TAB.ER.24H PO SCH (09:00)
[2022-11-16] MEDS ORDERED: amLODIPine 10 MG TAB PO SCH (09:00)
[2022-11-16] MEDS ORDERED: ENOXAPARIN 30 MG/0.3 ML SYRINGE SQ SCH (09:00)
[2022-11-16] MEDS ORDERED: TAMSULOSIN 0.4 MG CAP.ER.24H PO SCH (09:00)
--- NOTE | 2022-11-16 11:00 | P.PN ---
Subjective Progress Note Date: 11/16/22 CHIEF COMPLAINT: Esophageal cancer HISTORY OF PRESENT ILLNESS: The patient is a 72-year-old male who presented with increasing dysphagia including troubles eating and drinking with esophageal cancer. He underwent Port-A-Cath placement including upper endoscopy with demonstration of near obstructing esophageal cancer. A Feeding tube was placed as a result. Patient is using the restroom. Separately, patient did describe having atypical chest pain from his cancer. He also reports unintentional w eight loss over 25 pounds in 1 month. ROS: No fevers or chills. No productive sputum PHYSICAL EXAM: VITAL SIGNS: Reviewed CONSTITUTIONAL: Well developed and in no acute distress. EYES: Conjuctivae without sclera icterus. Extraocular movements grossly intact. HEAD, EARS, NOSE, THROAT: Moist buccal mucosa. Head is atraumatic, normocephalic. Hears conversational speech. No nasal drainage. RESPIRATORY: Non-labored respirations and equal bilateral excursions. CARDIOVASCULAR: Palpable 2+ radial pulses. ABDOMEN: Scaphoid. Gastrostomy tube intact without bleeding at 1.5 cm. MUSCULOSKELETAL: No gross deformity of the lower extremities noted. No clubbing. No cyanosis. SKIN: Good skin turgor. Well perfused. NEUROLOGIC: Cranial nerves II through XII grossly intact. No focal or later alizing signs. PSYCH: Appropriate affect. Alert and oriented to person, place and time. CLINICAL LABS: Anemia, hemoglobin 9.9, potassium level 3.2. ASSESSMENT: 1. Esophageal cancer with near obstruction 2. Dysphagia 3. Severe protein malnutrition 4. Congestive heart failure with diastolic dysfunction 5. Unintentional weight loss 6. Hypokalemia 7. Anemia 8. Diabetes type 2, insulin-dependent, uncontrolled PLAN: 1. Correction of hypokalemia with IV fluids and potassium supplement 2. Home healthcare for tube feeds 3. Urgent dietitian consultation for tube feed management 4. Urgent oncology consultation due to aggressive growth, esophageal cancer Objective - Vital Signs Vital signs: Vital Signs Temp 98.3 F 11/16/22 07:02 Pulse 68 11/16/22 09:03 Resp 18 11/16/22 07:02 BP 146/56 11/16/22 07:02 Pulse Ox 97 11/16/22 07:02 FiO2 Intake & Output 11/15/22 11/16/22 11/16/22 18:59 06:59 18:59 Intake Total 1200 1400 Output Total 5 Balance 1195 1400 Weight 88.7 kg 88.7 kg Intake: IV 1200 Intake, IV Titration 900 Amount 0.9% NaCl with KCl 40 Meq 900 /l 1,000 ml @ 75 mls/hr IV .[id number] [facility] Rx#: [id number] Oral 500 Output: Estimated Blood Loss 5 Other: # Voids 2 - Labs CBC & Chem 7: 11/15/22 19:57 11/15/22 19:57 Labs: Abnormal Lab Results - Last 24 Hours (Table) 11/15/22 11/15/22 11/15/22 Range/Units 12:46 12:46 12:46 RBC 3.49 L (4.30-5.90) m/uL Hgb 9.9 L (13.0-17.5) gm/dL Hct 30.1 L (39.0-53.0) % Neutrophils # (1.3-7.7) k/uL Lymphocytes # 0.9 L (1.0-4.8) k/uL Sodium 136 L (137-145) mmol/L Potassium 3.2 L (3.5-5.1) mmol/L Creatinine 1.28 H (0.66-1.25) mg/dL Glucose 147 H (74-99) mg/dL POC Glucose (mg/dL) 149 H (70-110) mg/dL Total Protein 6.1 L (6.3-8.2) g/dL Albumin 3.3 L (3.5-5.0) g/dL 11/15/22 11/15/22 11/15/22 Range/Units 16:26 19:57 19:57 RBC 3.48 L (4.30-5.90) m/uL Hgb 9.5 L (13.0-17.5) gm/dL Hct 30.4 L (39.0-53.0) % Neutrophils # 9.8 H (1.3-7.7) k/uL Lymphocytes # 0.4 L (1.0-4.8) k/uL Sodium 136 L (137-145) mmol/L Potassium (3.5-5.1) mmol/L Creatinine (0.66-1.25) mg/dL Glucose 166 H (74-99) mg/dL POC Glucose (mg/dL) 176 H (70-110) mg/dL Total Protein 5.9 L (6.3-8.2) g/dL Albumin 3.3 L (3.5-5.0) g/dL 11/16/22 Range/Units 05:52 RBC (4.30-5.90) m/uL Hgb (13.0-17.5) gm/dL Hct (39.0-53.0) % Neutrophils # (1.3-7.7) k/uL Lymphocytes # (1.0-4.8) k/uL Sodium (137-145) mmol/L Potassium (3.5-5.1) mmol/L Creatinine (0.66-1.25) mg/dL Glucose (74-99) mg/dL POC Glucose (mg/dL) 183 H (70-110) mg/dL Total Protein (6.3-8.2) g/dL Albumin (3.5-5.0) g/dL
--- NOTE | 2022-11-16 11:08 | P.PN ---
Subjective Progress Note Date: 11/16/22 Hospital course Patient is a 72-year-old male with esophageal cancer who was admitted for PEG tube due to severe dysphagia. Medicine has been consulted for medical management. Subjective Patient was seen this morning. He is complaining of mild soreness in his abdomen. He otherwise has no acute complaints. Physical exam General examination - Alert and Oriented 3 in NAD, appears chronically debilitated Heart - + S1S2 no murmurs Lungs - Clear to auscultation Abdomen soft and mild tenderness to palpate around the PEG tube site ND +ve BS, + PEG tube, cause around PEG tube site with spots of blood Extremities - No edema CASTING TESTER - Moving all 4 extremities spontaneously Psych - Calm and cooperative Assessment and Plan: Status post PEG tube Dysphagia Esophageal cancer Diabetes mellitus Chronic anemia Asthma Hypothyroidism Hypertension Coronary disease Based on my assessment of this patient, this patient meets low level of complexity The patient to give recommendations for PEG 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 Patient's hemoglobin is 9.5 which is stable. Patient's blood glucose in the 100s. Patient's potassium is 3.5. Patient stable for discharge from a medical standpoint. Awaiting for recommendation for tube feeds from dietitian and also waiting for case briefer to arrange for home with tube feeds I anticipate patient will go home tomorrow if able to tolerate his tube feeds. We will continue to follow along and adjust his insulin as needed for better control. CODE STATUS: FULL CODE. DVT prophylaxis: Lovenox. I have reviewed the following senior market intelligence consultant notes: None I have reviewed the results of the following tests: CBC and BMP I have ordered the following tests: None I have discussed the care of this patient with the following independent historian: None I have independently interpreted the following test below: None I have discussed the management of this patient with the following physician: None Objective - Vital Signs Vital signs: Vital Signs Temp 98.3 F 11/16/22 07:02 Pulse 68 11/16/22 09:03 Resp 18 11/16/22 07:02 BP 146/56 11/16/22 07:02 Pulse Ox 97 11/16/22 07:02 FiO2 Intake & Output 11/15/22 11/16/22 11/16/22 18:59 06:59 18:59 Intake Total 1200 1400 Output Total 5 Balance 1195 1400 Weight 88.7 kg 88.7 kg Intake: IV 1200 Intake, IV Titration 900 Amount 0.9% NaCl with KCl 40 Meq 900 /l 1,000 ml @ 75 mls/hr IV .[id number] [facility] Rx#: [id number] Oral 500 Output: Estimated Blood Loss 5 Other: # Voids 2 - Labs CBC & Chem 7: 11/15/22 19:57 11/15/22 19:57 Labs: Abnormal Lab Results - Last 24 Hours (Table) 11/15/22 11/15/22 11/15/22 Range/Units 12:46 12:46 12:46 RBC 3.49 L (4.30-5.90) m/uL Hgb 9.9 L (13.0-17.5) gm/dL Hct 30.1 L (39.0-53.0) % Neutrophils # (1.3-7.7) k/uL Lymphocytes # 0.9 L (1.0-4.8) k/uL Sodium 136 L (137-145) mmol/L Potassium 3.2 L (3.5-5.1) mmol/L Creatinine 1.28 H (0.66-1.25) mg/dL Glucose 147 H (74-99) mg/dL POC Glucose (mg/dL) 149 H (70-110) mg/dL Total Protein 6.1 L (6.3-8.2) g/dL Albumin 3.3 L (3.5-5.0) g/dL 11/15/22 11/15/22 11/15/22 Range/Units 16:26 19:57 19:57 RBC 3.48 L (4.30-5.90) m/uL Hgb 9.5 L (13.0-17.5) gm/dL Hct 30.4 L (39.0-53.0) % Neutrophils # 9.8 H (1.3-7.7) k/uL Lymphocytes # 0.4 L (1.0-4.8) k/uL Sodium 136 L (137-145) mmol/L Potassium (3.5-5.1) mmol/L Creatinine (0.66-1.25) mg/dL Glucose 166 H (74-99) mg/dL POC Glucose (mg/dL) 176 H (70-110) mg/dL Total Protein 5.9 L (6.3-8.2) g/dL Albumin 3.3 L (3.5-5.0) g/dL 11/16/22 Range/Units 05:52 RBC (4.30-5.90) m/uL Hgb (13.0-17.5) gm/dL Hct (39.0-53.0) % Neutrophils # (1.3-7.7) k/uL Lymphocytes # (1.0-4.8) k/uL Sodium (137-145) mmol/L Potassium (3.5-5.1) mmol/L Creatinine (0.66-1.25) mg/dL Glucose (74-99) mg/dL POC Glucose (mg/dL) 183 H (70-110) mg/dL Total Protein (6.3-8.2) g/dL Albumin (3.5-5.0) g/dL
[2022-11-16 11:18] LABS: Glucose,Whole Blood 273 mg/dL (70-110)
[2022-11-16 11:53] VITALS: BMI 25.7
[2022-11-16] MEDS ORDERED: BUMETANIDE 0.5 MG TABLET PO SCH (12:00)
[2022-11-16] MEDS: HYDROmorphone 1 MG/ML 1 ML SYRINGE IVP PRN (12:28)
--- NOTE | 2022-11-16 14:07 | P.DS ---
Providers Date of admission: 11/15/22 16:02 Expected date of discharge: 11/16/22 Attending physician: Helga Lee Consults: 11/15/22 16:05 Consult Physician Urgent Consulting Provider: Thea Rizo Consult Reason/Comments: Esophageal cancer Do you want consulting provider notified?: Yes 11/15/22 16:07 Consult Physician Routine Consulting Provider: Jennifer Alvarez Consult Reason/Comments: Medical management/covering provider Do you want consulting provider notified?: Yes [facility] Course: Discharge diagnosis 1. Esophageal cancer with near obstruction 2. Dysphagia 3. Severe protein malnutrition 4. Congestive heart failure with diastolic dysfunction 5. Unintentional weight loss 6. Hypokalemia 7. Anemia 8. Diabetes type 2, insulin-dependent, uncontrolled Hospital course The patient is a 72-year-old male recently diagnosed with esophageal cancer. Reports difficulty with oral intake. He presents for chemotherapeutic access. Patient is status post port placement and PEG tube placement. Patient is tolerating tube feeds. His pain is controlled. He is afebrile. He has been up and ambulating. He is stable for discharge. Physician Gold Layer note has been reviewed by physician. Signing provider agrees with the documented findings, assessment, and plan of care. Please see separate corrected discharge summary. Patient Condition at Discharge: Stable Plan - Discharge Summary Discharge Rx Participant: No New Discharge Prescriptions: New Aspirin 81 mg PEG/G-TUBE DAILY 30 Days #30 tab carvediloL [Coreg] 12.5 mg PEG/G-TUBE BID 30 Days #60 tab amLODIPine [Norvasc] 10 mg PEG/G-TUBE DAILY 30 Days #30 tablet Montelukast [Singulair] 10 mg PEG/G-TUBE DAILY 30 Days #30 tab Pantoprazole Sodium 40 mg PO BID 30 Days #60 packet Levothyroxine Sodium [Synthroid] 175 mcg PEG/G-TUBE DAILY 30 Days #30 tablet Continue Insulin Degludec [Tresiba Flextouch U-100 Pen] 26 units SQ HS INSULIN ASPART (NovoLOG) [NovoLOG (formulary)] See Protocol SQ ACHS Budesonide-Formot 160-4.5 Mcg [Symbicort 160-4.5 Mcg Inhaler] 2 puff INHALATION RT-BID Albuterol Sulfate [Ventolin HFA] 2 puff INHALATION RT-QID Budesonide [Pulmicort] 0.5 mg INHALATION RT-BID Albuterol Nebulized [Ventolin Nebulized] 2.5 mg INHALATION RT-QID Discontinued Levothyroxine Sodium [Synthroid] 175 mcg PO QAM Tamsulosin HCl [Flomax] 0.4 mg PO QAM Simvastatin [Zocor] 20 mg PO HS Montelukast [Singulair] 10 mg PO HS Bumetanide [BUMEX] 0.5 mg PO 1200 amLODIPine [Norvasc] 10 mg PO QAM Acetaminophen Tab [Tylenol] 1,000 mg PO Q6H Cholecalciferol (Vitamin D3) [Vitamin D3 (50 Mcg = 2000 Iu) Chew Tab] 50 mcg PO QAM Ondansetron [Zofran] 8 mg PO Q8HR PRN PRN Reason: Nausea Isosorbide Mononitrate ER [Imdur] 30 mg PO QAM carvediloL [Coreg] 12.5 mg PO AC-BID Calcium Carbonate [Tums] 500 mg PO QID PRN PRN Reason: Indigestion Pantoprazole Sodium [Protonix] 40 mg PO BID Aspirin [Adult Low Dose Aspirin EC] 81 mg PO HS Thiamine [Vitamin B-1] 100 mg PO DAILY Sucralfate [Carafate] 1 gm PO QID Discharge Medication List Insulin Degludec [Tresiba Flextouch U-100 Pen] 26 units SQ HS 12/29/18 [History] INSULIN ASPART (NovoLOG) [NovoLOG (formulary)] See Protocol SQ ACHS 12/30/18 [History] Budesonide-Formot 160-4.5 Mcg [Symbicort 160-4.5 Mcg Inhaler] 2 puff INHALATION RT-BID 01/07/19 [History] Albuterol Nebulized [Ventolin Nebulized] 2.5 mg INHALATION RT-QID 05/08/21 [History] Albuterol Sulfate [Ventolin HFA] 2 puff INHALATION RT-QID 05/08/21 [History] Budesonide [Pulmicort] 0.5 mg INHALATION RT-BID 05/08/21 [History] Aspirin 81 mg PEG/G-TUBE DAILY 30 Days #30 tab 11/17/22 [Rx] Levothyroxine Sodium [Synthroid] 175 mcg PEG/G-TUBE DAILY 30 Days #30 tablet 11/17/22 [Rx] Montelukast [Singulair] 10 mg PEG/G-TUBE DAILY 30 Days #30 tab 11/17/22 [Rx] Pantoprazole Sodium 40 mg PO BID 30 Days #60 packet 11/17/22 [Rx] amLODIPine [Norvasc] 10 mg PEG/G-TUBE DAILY 30 Days #30 tablet 11/17/22 [Rx] carvediloL [Coreg] 12.5 mg PEG/G-TUBE BID 30 Days #60 tab 11/17/22 [Rx] Follow up Appointment(s)/Referral(s): Rebekah Teran NPC [Nurse Practitioner] - 11/20/22 1:45 pm (Appt is at the [facility] office. Chemotherapy education visit. [phone]) [facility] [NON-STAFF] - 1-2 Days ([facility] will call you to schedule your in home nursing visits to begin Peg Tube teaching and feedings. Your first visit will be on the morning of 11/17/22.) [facility], [REFERRING] - As Needed ([facility] will delivery your tube feeding supplies tonight between 6-8pm. ) Patient Instructions/Handouts: How to Use and Care for Your PEG Tube (DC), Clear Liquid Diet (DC), Dysphagia (GEN) Activity/Diet/Wound Care/Special Instructions: Tube Feeding recommendations: 1. Glucerna 1.2 - The goal is 2 cans each meal four time daily with 90 ml free water flushes before and after each meal. Free water flush goal is 720ml daily. 2. Patient should start by doing a half can every hour while awake to ensure he will tolerate feedings for a total of 8 cans daily. Flush with 30 ml free water before and after each hourly feeding for a total of 720ml free water flush in 24 hours. Discharge Disposition: HOME WITH HOME HEALTH SERVICES
[2022-11-16 14:34] VITALS: BP 122/58; RESP 17; TEMP 98.4
--- NOTE | 2022-11-16 15:27 | P.CONS ---
History of Present Illness - Reason for Consult Consult date: 11/16/22 esophageal adeno Requesting physician: Helga Lee - Chief Complaint Admit for port placement, PEG tube, concerns for pend obstruction - History of Present Illness Mr Crocker is a very pleasant patient of Dr. Rizo admitted for port placement, Surgeon recognize possible impending obstruction and PEG tube was placed as well. Is doing fine post procedure, denies any fever, shortness of breath, cough, unusual pain, no abdominal pain, nausea. He can still swallow some liquids, denies cough. His bolus PEG tube feedings are going to be started later today. Patient initially noted pain in the epigastric area after eating, radiating across the chest in March 2022. CT AP showed a small hiatal hernia, started on PPI. He had no improvement so he was referred to Dr. Lee for possible surgery for the hernia. He underwent EGD 09/24/22 which revealed circumferential mass at the distal esophagus, biopsy positive for poorly differentiated adenocarcinoma. Staging PET 11/01/22 showed multiple areas of suspicious uptake including mediastinal lymph node, perihilar lymph node, infracranial node, suspicious uptake at distal esophagus, multiple abdnominal nodes to gastric cardia up to 4.1 cm in size. Patient Ray reports being able to swallow liquids but difficulty swallowing most solid food, unable to tolerate meat, 60 pound weight loss since 03/24. Review of Systems 10 point review of systems is negative except as stated in HPI Past Medical History Past Medical History: Asthma, Cancer, Diabetes Mellitus, GERD/Reflux, Hyperlipidemia, Hypertension, Thyroid Disorder Additional Past Medical History / Comment(s): hiatal hernia, only has right kidney,kidney cancer left removed. esophageal cancer History of Any Multi-Drug Resistant Organisms: None Reported Past Surgical History: Appendectomy, Hernia Repair Additional Past Surgical History / Comment(s): left kidney removal secondary to cancer umbilical and abdominal hernia repair, colonoscopy. EGD Past Anesthesia/Blood Transfusion Reactions: No Reported Reaction Past Psychological History: No Psychological Hx Reported Smoking Status: Former smoker Past Alcohol Use History: Rare Additional Past Alcohol Use History / Comment(s): quit >20yrs ago Past Drug Use History: None Reported - Past Family History Mother Family Medical History: Myocardial Infarction ([place]) Additional Family Medical History / Comment(s): maternal grandmother had diabetes Sister(s) Family Medical History: Cancer Additional Family Medical History / Comment(s): Liver cancer, breast cancer. another sister breast cancer Father Family Medical History: Cancer Additional Family Medical History / Comment(s): prostate cancer. Medications and Allergies Home Medications Medication Instructions Recorded Confirmed Type Insulin Degludec [Tresiba 26 units SQ HS 12/29/18 11/12/22 History Flextouch U-100 Pen] Levothyroxine Sodium [Synthroid] 175 mcg PO QAM 12/29/18 11/12/22 History Tamsulosin HCl [Flomax] 0.4 mg PO QAM 12/29/18 11/12/22 History INSULIN ASPART (NovoLOG) [NovoLOG See Protocol SQ ACHS 12/30/18 11/12/22 History (formulary)] Budesonide-Formot 160-4.5 Mcg 2 puff INHALATION RT-BID 01/07/19 11/12/22 History [Symbicort 160-4.5 Mcg Inhaler] Albuterol Nebulized [Ventolin 2.5 mg INHALATION RT-QID 05/08/21 11/12/22 History Nebulized] Albuterol Sulfate [Ventolin HFA] 2 puff INHALATION RT-QID 05/08/21 11/12/22 History Budesonide [Pulmicort] 0.5 mg INHALATION RT-BID 05/08/21 11/12/22 History Bumetanide [BUMEX] 0.5 mg PO 1200 05/08/21 11/12/22 History Isosorbide Mononitrate ER [Imdur] 30 mg PO QAM 05/08/21 11/12/22 History Montelukast [Singulair] 10 mg PO HS 05/08/21 11/12/22 History Simvastatin [Zocor] 20 mg PO HS 05/08/21 11/12/22 History amLODIPine [Norvasc] 10 mg PO QAM 05/08/21 11/12/22 History carvediloL [Coreg] 12.5 mg PO AC-BID 05/08/21 11/12/22 History Calcium Carbonate [Tums] 500 mg PO QID PRN 09/18/22 11/12/22 History Pantoprazole Sodium [Protonix] 40 mg PO BID 09/18/22 11/12/22 History Acetaminophen Tab [Tylenol] 1,000 mg PO Q6H 09/20/22 11/12/22 History Aspirin [Adult Low Dose Aspirin EC] 81 mg PO HS 09/20/22 11/12/22 History Cholecalciferol (Vitamin D3) 50 mcg PO QAM 09/20/22 11/12/22 History [Vitamin D3 (50 Mcg = 2000 Iu) Chew Tab] Thiamine [Vitamin B-1] 100 mg PO DAILY 09/20/22 11/12/22 History Ondansetron [Zofran] 8 mg PO Q8HR PRN 11/12/22 11/12/22 History Sucralfate [Carafate] 1 gm PO QID 11/12/22 11/12/22 History Allergies Allergy/AdvReac Type Severity Reaction Status Date / Time No Known Allergies Allergy Verified 11/12/22 12:39 Physical Exam Vitals: Vital Signs Temp Pulse Pulse Pulse Pulse Resp BP 11/16/22 09:03 68 11/16/22 08:50 70 11/16/22 07:02 98.3 F 69 18 11/16/22 06:05 11/16/22 01:24 98.6 F 68 17 11/15/22 21:49 97.6 F 64 17 11/15/22 20:43 72 11/15/22 20:34 69 11/15/22 19:17 97.6 F 64 17 11/15/22 18:15 64 16 11/15/22 17:45 64 16 11/15/22 17:15 61 16 11/15/22 16:45 61 16 11/15/22 16:30 62 16 11/15/22 16:15 62 16 11/15/22 16:00 64 16 11/15/22 15:45 64 16 11/15/22 15:37 97.6 F 63 14 11/15/22 12:46 98.2 F 73 16 130/64 BP Pulse Ox 11/16/22 09:03 11/16/22 08:50 11/16/22 07:02 146/56 97 11/16/22 06:05 143/63 11/16/22 01:24 123/63 96 11/15/22 21:49 140/64 99 11/15/22 20:43 11/15/22 20:34 11/15/22 19:17 140/64 99 11/15/22 18:15 124/65 96 11/15/22 17:45 133/64 96 11/15/22 17:15 115/62 98 11/15/22 16:45 112/60 96 11/15/22 16:30 106/63 97 11/15/22 16:15 121/61 95 11/15/22 16:00 125/67 99 11/15/22 15:45 119/65 100 11/15/22 15:37 128/58 100 11/15/22 12:46 97 Intake and Output 11/15/22 11/16/22 11/16/22 22:59 06:59 14:59 Intake Total 350 1400 Balance 350 1400 Intake: IV 350 Intake, IV Titration 900 Amount 0.9% NaCl with KCl 40 Meq 900 /l 1,000 ml @ 75 mls/hr IV .[id number] SIL Rx#: [id number] Oral 500 Other: # Voids 2 Weight 88.7 kg - Constitutional General appearance: average body habitus, cooperative, no acute distress - EENT Eyes: anicteric sclerae, EOMI ENT: hearing grossly normal - Neck Right chest wall Port-A-Cath site with dressing C/D/I, no unusual drainage or bruising noted - Respiratory Respiratory: bilateral: CTA - Cardiovascular Rhythm: regular Heart sounds: normal: S1, S2 Abnormal Heart Sounds: no systolic murmur, no diastolic murmur, no rub, no S3 Gallop, no S4 Gallop, no click, no other leg Peripheral Edema: bilateral: None - Gastrointestinal General gastrointestinal: no absent bowel sounds, no decreased bowel sounds, no distended, no hepatomegaly, no hyperactive bowel sounds, normal bowel sounds, no organomegaly, no rigid, no scaphoid, soft, no splenomegaly, no tenderness, no u mbilical hernia, no ventral hernia - Integumentary Integumentary: normal - Neurologic Neurologic: CNII-XII intact - Musculoskeletal Musculoskeletal: strength equal bilaterally - Psychiatric Psychiatric: A&O x's 3, appropriate affect, intact judgment & insight Results CBC & Chem 7: 11/15/22 19:57 11/15/22 19:57 Labs: Abnormal Lab Results - Last 24 Hours (Table) 11/15/22 11/15/22 11/15/22 Range/Units 12:46 12:46 12:46 RBC 3.49 L (4.30-5.90) m/uL Hgb 9.9 L (13.0-17.5) gm/dL Hct 30.1 L (39.0-53.0) % Neutrophils # (1.3-7.7) k/uL Lymphocytes # 0.9 L (1.0-4.8) k/uL Sodium 136 L (137-145) mmol/L Potassium 3.2 L (3.5-5.1) mmol/L Creatinine 1.28 H (0.66-1.25) mg/dL Glucose 147 H (74-99) mg/dL POC Glucose (mg/dL) 149 H (70-110) mg/dL Total Protein 6.1 L (6.3-8.2) g/dL Albumin 3.3 L (3.5-5.0) g/dL 11/15/22 11/15/22 11/15/22 Range/Units 16:26 19:57 19:57 RBC 3.48 L (4.30-5.90) m/uL Hgb 9.5 L (13.0-17.5) gm/dL Hct 30.4 L (39.0-53.0) % Neutrophils # 9.8 H (1.3-7.7) k/uL Lymphocytes # 0.4 L (1.0-4.8) k/uL Sodium 136 L (137-145) mmol/L Potassium (3.5-5.1) mmol/L Creatinine (0.66-1.25) mg/dL Glucose 166 H (74-99) mg/dL POC Glucose (mg/dL) 176 H (70-110) mg/dL Total Protein 5.9 L (6.3-8.2) g/dL Albumin 3.3 L (3.5-5.0) g/dL 11/16/22 Range/Units 05:52 RBC (4.30-5.90) m/uL Hgb (13.0-17.5) gm/dL Hct (39.0-53.0) % Neutrophils # (1.3-7.7) k/uL Lymphocytes # (1.0-4.8) k/uL Sodium (137-145) mmol/L Potassium (3.5-5.1) mmol/L Creatinine (0.66-1.25) mg/dL Glucose (74-99) mg/dL POC Glucose (mg/dL) 183 H (70-110) mg/dL Total Protein (6.3-8.2) g/dL Albumin (3.5-5.0) g/dL Assessment and Plan (1) Dysphagia Current Visit: Yes Status: Acute Priority: High Code(s): R13.10 - DYSPHAGIA, UNSPECIFIED SNOMED Code(s): 97152747 (2) Malignant neoplasm of esophagus, unspecified Current Visit: Yes Status: Acute Priority: High Code(s): C15.9 - MALIGNANT NEOPLASM OF ESOPHAGUS, UNSPECIFIED SNOMED Code(s): 312533586 Plan: Dysphagia -Surgeon recognized patient very close to esophageal obstruction so, PEG tube placed -2/2 Mass from esophageal adenocarcinoma -PEG tube placement for the same Metastatic esophageal adenocarcinoma -11/05/22 Dr. Rizo Met with patient and his , discussed diagnosis, prognosis and treatment options. -Patient is not a surgical candidate, and not a candidate for concurrent chemoradiation (this was discussed with Radiation Oncology). Radiation might be used in the future for symptoms. -Patient has appointments for chemotherapy edu and start date for chemotherapy treatment for next week. -Port placement to begin chemotherapy done
[2022-11-16 16:03] VITALS: PULSE 68
[2022-11-16] MEDS ORDERED: carvediloL 12.5 MG TAB PEG/G-TUBE SCH (17:30)
[2022-11-16] MEDS ORDERED: ATORVASTATIN 10 MG TAB PEG/G-TUBE SCH (21:00)
[2022-11-16] MEDS ORDERED: ASPIRIN 81 MG PO SCH (21:00)
[2022-11-16] MEDS ORDERED: MONTELUKAST 10 MG TAB PEG/G-TUBE SCH (21:00)
[2022-11-16] MEDS ORDERED: PANTOPRAZOLE 40 MG/10 ML VIAL IVP SCH (21:00)
[2022-11-16] MEDS ORDERED: ASPIRIN 81 MG PEG/G-TUBE SCH (21:00)
[2022-11-16] MEDS ORDERED: ATORVASTATIN 10 MG TAB PO SCH (21:00)
[2022-11-16] MEDS ORDERED: MONTELUKAST 10 MG TAB PO SCH (21:00)
[2022-11-17] MEDS ORDERED: LEVOTHYROXINE 88 MCG TAB PEG/G-TUBE SCH (06:30)
[2022-11-17] MEDS ORDERED: amLODIPine 10 MG TAB PEG/G-TUBE SCH (09:00)
--- NOTE | 2022-11-19 10:22 | P.DS ---
Providers Date of admission: 11/15/22 16:02 Expected date of discharge: 11/16/22 Attending physician: Helga Lee Consults: 11/15/22 16:05 Consult Physician Urgent Consulting Provider: Thea Rizo Consult Reason/Comments: Esophageal cancer Do you want consulting provider notified?: Yes 11/15/22 16:07 Consult Physician Routine Consulting Provider: Jennifer Alvarez Consult Reason/Comments: Medical management/covering provider Do you want consulting provider notified?: Yes Primary care physician: [facility] Course: POSTOPERATIVE DIAGNOSES: 1. Esophageal cancer 2. Need for chemotherapeutic access. 3. Hypertensive heart disease with congestive heart failure 4. Dysphagia 5. Atypical chest pain 6. Diastolic congestive heart failure 7. Thiamine deficiency 8. Hyperlipidemia 9. Gastroesophageal reflux disease 10. Hypothyroidism 11. Chronic obstructive pulmonary disease 12. Diabetes type 2, insulin-dependent 13. Diabetic nephropathy 14. Unintentional weight loss COURSE: The patient is a 72-year-old gentleman who presented with new diagnosis of esophageal cancer with requirement of chemotherapeutic access. During assessment, patient reports worsening weight loss including inability to tolerate solid foods include oral intake. He had unintentional weight loss 25 pounds in 1 month. As a result, upper endoscopy assessment was performed demonstrating near complete obstruction from esophageal tumor. Gastrostomy feeding tube was placed. Patient was admitted with start of tube feeds including nutritional assessment. Adjustment of medications for PEG tube due to poor oral intake. Prior to discharge, home health care services were arranged including medicine consultation for adjustment of his oral medications. Patient was made strict nothing by mouth. He denied any abdominal pain and he was tolerating tube feeds. Procedures: PROCEDURES PERFORMED: 1. Ultrasound guided central venous access of the right internal jugular venous vein. 2. Fluoroscopic guidance for central venous access right internal jugular vein less than 1 seconds. 3. Placement of right internal jugular power port 6 [place] by AngioSiperian, Xcela Plus Port 4. Intraoperative esophagogastroduodenoscopy with PEG tube placement (please see separate operative report) ANESTHESIA: GENERAL with local. ESTIMATED BLOOD LOSS: 5 mL. SPECIMENS REMOVED: None. COMPLICATIONS: None. FINDINGS: 1. No thrombus encountered along the right carotid artery or internal jugular vein. 2. Access of the right internal jugular vein under ultrasound guidance. 3. Fluoroscopy of less than 1 seconds. Patient Condition at Discharge: Stable Plan - Discharge Summary Discharge Rx Participant: No New Discharge Prescriptions: New Aspirin 81 mg PEG/G-TUBE DAILY 30 Days #30 tab carvediloL [Coreg] 12.5 mg PEG/G-TUBE BID 30 Days #60 tab amLODIPine [Norvasc] 10 mg PEG/G-TUBE DAILY 30 Days #30 tablet Montelukast [Singulair] 10 mg PEG/G-TUBE DAILY 30 Days #30 tab Pantoprazole Sodium 40 mg PO BID 30 Days #60 packet Levothyroxine Sodium [Synthroid] 175 mcg PEG/G-TUBE DAILY 30 Days #30 tablet Continue Insulin Degludec [Tresiba Flextouch U-100 Pen] 26 units SQ HS INSULIN ASPART (NovoLOG) [NovoLOG (formulary)] See Protocol SQ ACHS Budesonide-Formot 160-4.5 Mcg [Symbicort 160-4.5 Mcg Inhaler] 2 puff INHALATION RT-BID Albuterol Sulfate [Ventolin HFA] 2 puff INHALATION RT-QID Budesonide [Pulmicort] 0.5 mg INHALATION RT-BID Albuterol Nebulized [Ventolin Nebulized] 2.5 mg INHALATION RT-QID Discontinued Levothyroxine Sodium [Synthroid] 175 mcg PO QAM Tamsulosin HCl [Flomax] 0.4 mg PO QAM Simvastatin [Zocor] 20 mg PO HS Montelukast [Singulair] 10 mg PO HS Bumetanide [BUMEX] 0.5 mg PO 1200 amLODIPine [Norvasc] 10 mg PO QAM Acetaminophen Tab [Tylenol] 1,000 mg PO Q6H Cholecalciferol (Vitamin D3) [Vitamin D3 (50 Mcg = 2000 Iu) Chew Tab] 50 mcg PO QAM Ondansetron [Zofran] 8 mg PO Q8HR PRN PRN Reason: Nausea Isosorbide Mononitrate ER [Imdur] 30 mg PO QAM carvediloL [Coreg] 12.5 mg PO AC-BID Calcium Carbonate [Tums] 500 mg PO QID PRN PRN Reason: Indigestion Pantoprazole Sodium [Protonix] 40 mg PO BID Aspirin [Adult Low Dose Aspirin EC] 81 mg PO HS Thiamine [Vitamin B-1] 100 mg PO DAILY Sucralfate [Carafate] 1 gm PO QID Discharge Medication List Insulin Degludec [Tresiba Flextouch U-100 Pen] 26 units SQ HS 12/29/18 [History] INSULIN ASPART (NovoLOG) [NovoLOG (formulary)] See Protocol SQ ACHS 12/30/18 [History] Budesonide-Formot 160-4.5 Mcg [Symbicort 160-4.5 Mcg Inhaler] 2 puff INHALATION RT-BID 01/07/19 [History] Albuterol Nebulized [Ventolin Nebulized] 2.5 mg INHALATION RT-QID 05/08/21 [History] Albuterol Sulfate [Ventolin HFA] 2 puff INHALATION RT-QID 05/08/21 [History] Budesonide [Pulmicort] 0.5 mg INHALATION RT-BID 05/08/21 [History] Aspirin 81 mg PEG/G-TUBE DAILY 30 Days #30 tab 11/17/22 [Rx] Levothyroxine Sodium [Synthroid] 175 mcg PEG/G-TUBE DAILY 30 Days #30 tablet 11/17/22 [Rx] Montelukast [Singulair] 10 mg PEG/G-TUBE DAILY 30 Days #30 tab 11/17/22 [Rx] Pantoprazole Sodium 40 mg PO BID 30 Days #60 packet 11/17/22 [Rx] amLODIPine [Norvasc] 10 mg PEG/G-TUBE DAILY 30 Days #30 tablet 11/17/22 [Rx] carvediloL [Coreg] 12.5 mg PEG/G-TUBE BID 30 Days #60 tab 11/17/22 [Rx] Follow up Appointment(s)/Referral(s): Rebekah Teran NPC [Nurse Practitioner] - 11/20/22 1:45 pm (Appt is at the [facility] office. Chemotherapy education visit. [phone]) Home Health,[facility] [NON-STAFF] - 1-2 Days ([facility] will call you to schedule your in home nursing visits to begin Peg Tube teaching and feedings. Your first visit will be on the morning of 11/17/22.) [facility], [REFERRING] - As Needed ([facility] will delivery your tube feeding supplies tonight between 6-8pm. ) Patient Instructions/Handouts: How to Use and Care for Your PEG Tube (DC), Renita r Liquid Diet (DC), Dysphagia (GEN) Activity/Diet/Wound Care/Special Instructions: Tube Feeding recommendations: 1. Glucerna 1.2 - The goal is 2 cans each meal four time daily with 90 ml free water flushes before and after each meal. Free water flush goal is 720ml daily. 2. Patient should start by doing a half can every hour while awake to ensure he will tolerate feedings for a total of 8 cans daily. Flush with 30 ml free water before and after each hourly feeding for a total of 720ml free water flush in 24 hours. Discharge Disposition: HOME WITH HOME HEALTH SERVICES
--- NOTE | 2022-11-20 14:11 | CDI ---
Documentation Clarification Form Date: 11/20/22 From: Lakeshia Witt Admit Date: 11/15/2022 04:02:00 PM Patient Name: Tyron Crocker Visit Number: [id number] Discharge Date: 11/16/2022 05:04:00 PM ATTENTION: The Clinical Documentation Specialists (CDI) and [facility] Coding Staff appreciate your assistance in clarifying documentation. Please respond to the clarification below the line at the bottom and electronically sign. The CDI & [facility] Coding staff will review the response and follow-up if needed. Please note: Queries are made part of the Legal Health Record. If you have any questions, please contact the author of this message via ITS. Dr. Helga Lee, Your patient has the documented diagnosis of unspecified CHF 11/15, Progress Note. and diastolic chf in D Sum. Additional information regarding the acuity of CHF is requested. History/Risk Factors: Esophageal Cancer, Nephropathy, HLD, HTN, DM, COPD, & GERD Clinical Indicators: HLD, HTN Chest X Ray: 11/15 Heart/mediastinum: Cardio mediastinal silhouette is prominent in size. Treatment: 'Bumetanide [BUMEX] 0.5 mg PO 1200 05/08/2106/12/23 History' In your professional opinion, can you please clarify the acuity of CHF if known? [ ] Acute Diastolic Heart Failure (preserved EF) [ ] Chronic Diastolic Heart Failure (preserved EF) [ ] Acute on Chronic Diastolic Heart Failure (preserved EF) [ ] Other, please specify [ ] Unable to determine MTDD
== END 2022-11-16 17:04 | disposition home health service (06) | DRG 374 ==
LOC: OR 12:06 → 4SSUR 15:37 → OR 16:02 → 4SSUR 16:02
PROVIDERS: ADMIT Surgery Plastic and Reconstructive Surgery; ATTEND Surgery Plastic and Reconstructive Surgery
PROC: 0DH63UZ Insertion of Feeding Device into Stomach, Percutaneous Approach (ICD-10-PCS; principal; 2022-11-15 13:35)
PROC: 02HV33Z Insertion of Infusion Device into Superior Vena Cava, Percutaneous Approach (ICD-10-PCS; 2022-11-15 13:35)
PROC: 0JH63WZ Insertion of Totally Implantable Vascular Access Device into Chest Subcutaneous Tissue and Fascia, Percutaneous Approach (ICD-10-PCS; 2022-11-15 13:35)
PROC: 3E0G76Z Introduction of Nutritional Substance into Upper GI, Via Natural or Artificial Opening (ICD-10-PCS; 2022-11-16)
DX: C15.9 Malignant neoplasm of esophagus, unspecified (principal); E43 Unspecified severe protein-calorie malnutrition; I50.30 Unspecified diastolic (congestive) heart failure; E51.9 Thiamine deficiency, unspecified; K22.2 Esophageal obstruction; I11.0 Hypertensive heart disease with heart failure; D63.0 Anemia in neoplastic disease; E11.21 Type 2 diabetes mellitus with diabetic nephropathy; E03.9 Hypothyroidism, unspecified; J44.9 Chronic obstructive pulmonary disease, unspecified; E78.5 Hyperlipidemia, unspecified; Z68.25 Body mass index [BMI] 25.0-25.9, adult; K21.9 Gastro-esophageal reflux disease without esophagitis; I25.10 Atherosclerotic heart disease of native coronary artery without angina pectoris; E87.6 Hypokalemia; K29.70 Gastritis, unspecified, without bleeding; Z79.82 Long term (current) use of aspirin; Z79.51 Long term (current) use of inhaled steroids; Z79.4 Long term (current) use of insulin; Z79.890 Hormone replacement therapy; Z79.899 Other long term (current) drug therapy; Z87.891 Personal history of nicotine dependence; Z85.528 Personal history of other malignant neoplasm of kidney; Z71.3 Dietary counseling and surveillance
CPT/HCPCS: 43246; 77001; 80053; 84100; 85025; 85610; 94640

== ENCOUNTER → 2023-01-18 | Outpatient (CLI) | payer MEDICARE, BC ==
--- NOTE | 2023-01-18 22:50 | PE ---
EXAMINATION TYPE: PET CT fusion skull to thigh DATE OF EXAM: 01/18/2023 CLINICAL INDICATION:Male, 73 years old with history of esophageal ca; TECHNIQUE: Following the intravenous administration of 8.48 mCi of F-18 FDG, whole body images are performed from the skull base to the midthigh. Images are reviewed on the computer in the coronal, a xial, and sagittal planes. Reconstructed rotating images are created on independent workstation and reviewed on the computer. A non-contrast CT is performed in conjunction with the PET scan. Glucose level 131 mg/dL CT DLP: 500 mGycm, Automated exposure control for dose reduction was used. COMPARISON: CT 03/09/2022, 03/07/2020, PET/CT None, FINDINGS: Mediastinal SUV mean is 1.9. Hepatic parenchyma SUV mean is 2.7. SKULL BASE AND NECK: There is a calcified lesion near the falx cerebri anteriorly and is only partia lly visualized in the [id number]. Lesion measures 22 mm Max SUV 5.2 CHEST, MEDIASTINUM, AND HILAR REGION: ] Abnormal FDG activity in the thorax: * Prevascular space right paratracheal lymph node measuring 11 mm Max SUV 5.4 and on the left measur ing 8 mm in short axis and max SUV 4.0. * Right low paratracheal lymph node measuring 17 mm max SUV 4.8. * Subcarinal lymph node/mass measuring up to 23 mm in short axis max SUV 8.6. * Esophageal mass extending along the distal esophagus max SUV 15.3. ABDOMEN AND PELVIS: * Upper abdominal FDG avid lymph nodes near the aren of the diaphragm which are somewhat ill-defined . Max SUV 8.0 on the right and Max SUV 7.6 on the left measuring 20 mm in short axis. Additional scat tered FDG avid lymph nodes along the retroperitoneum/abdominal aorta. * Renal uptake in the cortex max SUV 6.2 measuring 11 mm. MUSCULOSKELETAL STRUCTURES: Scattered small foci of FDG uptake. * Indeterminate uptake within the posterior back max SUV 2.2. * Indeterminate uptake within the right arm anterior lateral aspect max SUV 3.6. * Indeterminate uptake within the right back subcutaneous fat 1.2. * Indeterminate uptake within the right rectus femoris muscle max SUV 5.5. * Indeterminate uptake within the left anterior chest uptake max SUV 2.6. OTHER CT: Atherosclerosis of the carotid bifurcation. Right chest wall [id number] tip terminating in the superior vena cava. Coronary artery cusp patient's as well as aortic valve leaflet calcificati ons. Trace pericardial effusion. Circumferential thickening of the distal esophagus compatible with m alignancy. PEG tube in place with cuffing appropriate position. Prostate gland is enlarged measuring up to 4.9 cm in transverse dimension. Few scattered colonic diverticula. Scattered renal cysts. Nodul ar thickening of the left adrenal gland without increased FDG activity. IMPRESSION: 1. Findings compatible with esophageal cancer with metastatic disease to the mediastinum and upper a bdomen and retroperitoneal lymph nodes. 2. Few scattered foci of abnormal uptake are indeterminate could represent artifact. Most suspicious of which an most intense in the right anterior thigh uptake within the muscle. Attention follow-up i maging to rule out metastatic disease. 3. Indeterminate falx cerebri lesion which is partially calcified could represent meningioma. 4. Indeterminate right posterior renal uptake in the cortex with max SUV 6.2. Unclear if this is a c alyceal diverticulum with excreted IV contrast. If there is concern for renal pathology consider dedi cated MRI renal mass protocol with IV contrast.
== END | disposition home or self-care (01) ==
LOC: RADPETMAIN 08:01
PROVIDERS: ATTEND Surgery
DX: C15.8 Malignant neoplasm of overlapping sites of esophagus (principal)
CPT/HCPCS: 78815; A9552

== ENCOUNTER 2023-01-21 06:37 | Day surgery (SDC) | payer MEDICARE, BC ==
[2023-01-16 13:22] VITALS: BMI 25.7
[~2023-01-21 06:37] MED LIST changes: -ACETAMINOPHEN TAB 500 MG TAB PO PRN; +DEXAMETHASONE SOD PHOSPHATE 4 MG/ML 1 ML VIAL IV ONE; +HYDROmorphone 0.5 MG/0.5 ML SYRINGE IVP PRN; +LACTATED RINGERS 1,000 ML IV SCH; +LIDOCAINE 1% (10MG/ML) FOR IV START INTRADERMA PRN; +MIDAZOLAM 2 MG/2 ML VIAL IV PRN; +ONDANSETRON 4 MG/2 ML VIAL IVP ONE; -Pre Op ABX Message 1 EACH MISC MISCELLANE ONE; -metroNIDAZOLE-NS PMX 500 MG in SALINE 100 100ML.BAG IVPB PRN
[2023-01-21 07:27] LABS: Glucose,Whole Blood 102 mg/dL (70-110)
[2023-01-21 07:29] VITALS: TEMP 97.5
[2023-01-21] MEDS ORDERED: LIDOCAINE 2% INJ 20 MG/ML (2 ML VIAL) ONE (07:39)
[2023-01-21] MEDS ORDERED: PROPOFOL 10 MG/ML 20 ML VIAL IV ONE (07:39)
--- NOTE | 2023-01-21 07:45 | P.GSHP ---
History of Present Illness H&P Date: 01/21/23 CHIEF COMPLAINT: Esophageal cancer HISTORY OF PRESENT ILLNESS: The patient is a 73-year-old male who presents with esophageal cancer. Presents for PEG tube malfunction for a broken PEG tube adapter. Upper endoscopy was offered for further evaluation and management. PAST MEDICAL HISTORY: Please see list. PAST SURGICAL HISTORY: Please see list. MEDICATIONS: Please see list. ALLERGIES: Please see list. SOCIAL HISTORY: No illicit drug use FAMILY HISTORY: No reports of Crohn disease or ulcerative colitis. REVIEW OF ORGAN SYSTEMS: CONSTITUTIONAL: No reports of fevers or chills. GI: Denies any blood in stools or constipation. PHYSICAL EXAM: VITAL SIGNS: Stable GENERAL: Well-developed and pleasant in no acute distress. HEENT: No scleral icterus. Extraocular movements grossly intact. Moist buccal mucosa. NECK: Supple without lymphadenopathy. CHEST: Unlabored respirations. Equal bilateral excursions. CARDIOVASCULAR: Regular rate and rhythm. Distal 2+ pulses. ABDOMEN: Soft, nondistended. MUSCULOSKELETAL: No clubbing, cyanosis, or edema. ASSESSMENT: 1. Esophageal cancer PLAN: 1. Recommend proceeding with an upper endoscopy with re-placement of PEG tube Past Medical History Past Medical History: Asthma, Cancer, Diabetes Mellitus, GERD/Reflux, Hyperlipidemia, Hypertension, Thyroid Disorder Additional Past Medical History / Comment(s): Hiatal hernia, Hx left kidney cancer(had left nephrectomy), only has right kidney. Current esophageal cancer, has PEG tube and port a catheter. History of Any Multi-Drug Resistant Organisms: None Reported Past Surgical History: Appendectomy, Hernia Repair Additional Past Surgical History / Comment(s): Left kidney removed, umbilical and abdominal hernia repairs, colonoscopy, EGD's, PEG Tube placement, port a catheter placement. Past Anesthesia/Blood Transfusion Reactions: No Reported Reaction Past Psychological History: No Psychological Hx Reported Smoking Status: Former smoker Past Alcohol Use History: Rare Additional Past Alcohol Use History / Comment(s): Quit smoking >20yrs ago. Past Drug Use History: None Reported - Past Family History Mother Family Medical History: Myocardial Infarction (MD) Additional Family Medical History / Comment(s): Maternal grandmother had diabetes. Sister(s) Family Medical History: Cancer Additional Family Medical History / Comment(s): Liver cancer, breast cancer, another sister breast cancer. Father Family Medical History: Cancer Additional Family Medical History / Comment(s): Prostate cancer. Medications and Allergies Home Medications Medication Instructions Recorded Confirmed Type Insulin Degludec [Tresiba 24 units SQ HS 12/29/18 01/21/23 History Flextouch U-100 Pen] INSULIN ASPART (NovoLOG) [NovoLOG See Protocol SQ DIRECTED 12/30/18 01/21/23 History (formulary)] Budesonide-Formot 160-4.5 Mcg 2 puff INHALATION BID 01/07/19 01/21/23 History [Symbicort 160-4.5 Mcg Inhaler] Albuterol Nebulized [Ventolin 2.5 mg INHALATION BID 05/08/21 01/21/23 History Nebulized] Albuterol Sulfate [Ventolin HFA] 2 puff INHALATION QID 05/08/21 01/21/23 History Budesonide [Pulmicort] 0.5 mg INHALATION BID 05/08/21 01/21/23 History Levothyroxine Sodium [Synthroid] 175 mcg PEG/G-TUBE DAILY 30 Days 11/17/22 01/21/23 Rx #30 tablet Montelukast [Singulair] 10 mg PEG/G-TUBE DAILY 30 Days #30 11/17/22 01/21/23 Rx tab carvediloL [Coreg] 12.5 mg PEG/G-TUBE BID 30 Days #60 11/17/22 01/21/23 Rx tab Aspirin 81 mg PEG/G-TUBE HS 01/16/23 01/21/23 History Hydrocodone/Acetaminophen 3 tsp PEG/G-TUBE Q6H 01/16/23 01/21/23 History [Hydrocodone/Acetaminophen 7.5-325] Pantoprazole Sodium 40 mg PEG/G-TUBE BID 01/16/23 01/21/23 History Simvastatin [Zocor] 20 mg PEG/G-TUBE HS 01/16/23 01/21/23 History Sucralfate [Carafate] 1 gm PEG/G-TUBE BID 01/16/23 01/21/23 History ondansetron HCL [Zofran] 8 mg PEG/G-TUBE Q8HR 01/16/23 01/21/23 History Allergies Allergy/AdvReac Type Severity Reaction Status Date / Time No Known Allergies Allergy Verified 01/16/23 13:03 Surgical - Exam Vital Signs Temp Pulse Resp BP Pulse Ox 97.5 F L 61 14 145/72 98 01/21/23 07:03 01/21/23 07:03 01/21/23 07:03 01/21/23 07:03 01/21/23 07:03
[2023-01-21 08:09] VITALS: RESP 16
--- NOTE | 2023-01-21 08:11 | P.OP ---
Date of Procedure: 01/21/23 Description of Procedure: PREOPERATIVE DIAGNOSIS: Esophageal cancer Severe protein malnutrition Gastrostomy tube status. Dysphagia. POSTOPERATIVE DIAGNOSIS: Esophageal cancer, complete obstruction Severe protein malnutrition Gastrostomy tube status. Dysphagia. PROCEDURE: 1. Esophagoscopy. 2. Replacement of percutaneous endoscopic gastrostomy tube placement 20-English, EndoVive Pull technique [employer] ADAPTER only SURGEON: Helga Lee MD ANESTHESIA: MAC. EBL: 0-mL INDICATIONS: The patient is a 73-year-old male who presents esophageal cancer including broken feeding tube. Benefits and risks of the procedure were described. Informed consent was obtained. DESCRIPTION: The patient was brought into the endoscopy suite and laid in supine position. After adequate IV sedation a bite block was placed. An Olympus gastroscope was passed along the posterior oropharynx down the distal esophagus. The distal esophagus was friable in with complete obstruction demonstrated advanced disease from his prior upper endoscopy 2 months ago. The feeding tube was assessed with dysfunction of the feeding tube adapter. The tubing was cut at the malfunction feeding tube adapter. A new adapter was placed. The patient tolerated the procedure well. Findings: 1. Complete obstruction distal esophagus due to esophageal cancer 2. Malfunction of feeding tube due to broken adapter were placed Disposition: Any replacement of feeding tube will need interventional radiology replacement due to complete obstruction of distal esophagus by esophageal cancer Plan - Discharge Summary Discharge Rx Participant: Yes New Discharge Prescriptions: Continue Insulin Degludec [Tresiba Flextouch U-100 Pen] 24 units SQ HS INSULIN ASPART (NovoLOG) [NovoLOG (formulary)] See Protocol SQ DIRECTED Budesonide-Formot 160-4.5 Mcg [Symbicort 160-4.5 Mcg Inhaler] 2 puff INHALATION BID Albuterol Sulfate [Ventolin HFA] 2 puff INHALATION QID carvediloL [Coreg] 12.5 mg PEG/G-TUBE BID 30 Days #60 tab Montelukast [Singulair] 10 mg PEG/G-TUBE DAILY 30 Days #30 tab Sucralfate [Carafate] 1 gm PEG/G-TUBE BID Simvastatin [Zocor] 20 mg PEG/G-TUBE HS Budesonide [Pulmicort] 0.5 mg INHALATION BID Albuterol Nebulized [Ventolin Nebulized] 2.5 mg INHALATION BID Levothyroxine Sodium [Synthroid] 175 mcg PEG/G-TUBE DAILY 30 Days #30 tablet Aspirin 81 mg PEG/G-TUBE HS ondansetron HCL [Zofran] 8 mg PEG/G-TUBE Q8HR Pantoprazole Sodium 40 mg PEG/G-TUBE BID Hydrocodone/Acetaminophen [Hydrocodone/Acetaminophen 7.5-325] 3 tsp PEG/G- TUBE Q6H Discharge Medication List Insulin Degludec [Tresiba Flextouch U-100 Pen] 24 units SQ HS 12/29/18 [History] INSULIN ASPART (NovoLOG) [NovoLOG (formulary)] See Protocol SQ DIRECTED 12/30/18 [History] Budesonide-Formot 160-4.5 Mcg [Symbicort 160-4.5 Mcg Inhaler] 2 puff INHALATION BID 01/07/19 [History] Albuterol Nebulized [Ventolin Nebulized] 2.5 mg INHALATION BID 05/08/21 [History] Albuterol Sulfate [Ventolin HFA] 2 puff INHALATION QID 05/08/21 [History] Budesonide [Pulmicort] 0.5 mg INHALATION BID 05/08/21 [History] Levothyroxine Sodium [Synthroid] 175 mcg PEG/G-TUBE DAILY 30 Days #30 tablet 11/17/22 [Rx] Montelukast [Singulair] 10 mg PEG/G-TUBE DAILY 30 Days #30 tab 11/17/22 [Rx] carvediloL [Coreg] 12.5 mg PEG/G-TUBE BID 30 Days #60 tab 11/17/22 [Rx] Aspirin 81 mg PEG/G-TUBE HS 01/16/23 [History] Hydrocodone/Acetaminophen [Hydrocodone/Acetaminophen 7.5-325] 3 tsp PEG/G-TUBE Q6H 01/16/23 [History] Pantoprazole Sodium 40 mg PEG/G-TUBE BID 01/16/23 [History] Simvastatin [Zocor] 20 mg PEG/G-TUBE HS 01/16/23 [History] Sucralfate [Carafate] 1 gm PEG/G-TUBE BID 01/16/23 [History] ondansetron HCL [Zofran] 8 mg PEG/G-TUBE Q8HR 01/16/23 [History] Follow up Appointment(s)/Referral(s): Helga Lee MD [STAFF PHYSICIAN] - As Needed Patient Instructions/Handouts: How to Use and Care for Your PEG Tube (DC) Discharge Disposition: HOME SELF-CARE
[2023-01-21] MEDS ORDERED: ONDANSETRON 4 MG/2 ML VIAL IVP ONE (08:17)
[2023-01-21 08:43] VITALS: BP 145/72; PULSE 74
== END 2023-01-21 08:53 | disposition home or self-care (01) ==
LOC: ORWHC2ENDO 06:37
PROVIDERS: ATTEND Surgery Plastic and Reconstructive Surgery
DX: K21.00 Gastro-esophageal reflux disease with esophagitis, without bleeding (principal); E43 Unspecified severe protein-calorie malnutrition; K94.23 Gastrostomy malfunction; J45.909 Unspecified asthma, uncomplicated; E11.9 Type 2 diabetes mellitus without complications; K21.9 Gastro-esophageal reflux disease without esophagitis; I10 Essential (primary) hypertension; E78.5 Hyperlipidemia, unspecified; Z90.5 Acquired absence of kidney; Z85.01 Personal history of malignant neoplasm of esophagus; Z90.49 Acquired absence of other specified parts of digestive tract; Z98.890 Other specified postprocedural states; Z87.891 Personal history of nicotine dependence; Z86.59 Personal history of other mental and behavioral disorders; Z83.3 Family history of diabetes mellitus; Z82.49 Family history of ischemic heart disease and other diseases of the circulatory system; Z80.0 Family history of malignant neoplasm of digestive organs; Z79.4 Long term (current) use of insulin; Z79.899 Other long term (current) drug therapy
CPT/HCPCS: 43246; J2405; J2704; J2001; B4087; 43235

== ENCOUNTER → 2023-04-11 | Outpatient (CLI) | payer MEDICARE, BC ==
--- NOTE | 2023-04-12 16:03 | PE ---
EXAMINATION TYPE: PET CT fusion skull to thigh DATE OF EXAM: 04/11/2023 COMPARISON: No recent pertinent CT Prior PET/CT: 01/18/2023 HISTORY: Esophageal cancer TECHNIQUE: Following the intravenous administration of 13.5 mCi of F-18 FDG, whole body images are p erformed from the skull base to the midthigh. Images are reviewed on the computer in the coronal, ax ial, and sagittal planes. Reconstructed rotating images are created on independent workstation and r eviewed on the computer. A localization and attenuation correction CT is performed in conjunction w ith the PET scan. DLP: 478.20 mGycm SCAN: Subsequent Blood glucose: 173 mg/dL Average Mediastinum SUV: 2.0 to Average Liver SUV: 2.51 FINDINGS: NECK: There is a focus of radiotracer accumulation at the neck shoulder junction on the right, image 63, SUV 5.39. THORAX: There is uptake within the subcutaneous tissue anterior left chest. Image 72, SUV 5.32. There is focal uptake within the posterior paraspinal soft tissues, image 79, SUV 6.47. There is uptake within the superior mediastinum, image 81, right side uptake 11.75, left-sided uptake 5.04. This may have some central cavitation. There is right paratracheal lymph node with uptake image 99, SUV 8.26. There is significant uptake within the esophagus. This measures approximately 10 SUV over a long segm ent from the mid to distal esophagus. There is some extension or metastatic changes in the celiac axi s region, example image 147, SUV 9.2 by. ABDOMEN: Periaortic lymphadenopathy is present with uptake, example image 174 SUV 7.06. Retrocaval ad enopathy is also noted. Example image 174, 75.27. This extends to the bifurcation. PELVIS: Right common iliac chain lymphadenopathy is present with an SUV of 9.76, image 198. Additiona l right iliac lymphadenopathy measures 8.01, image 208. Soft tissue uptake is lateral to the proximal right femur. Image 260, SUV 15.3. OSSEOUS STRUCTURES: No abnormal uptake Other: There is a large focus of uptake within the right dorsal upper extremity. Example image 33, PÉREZ V 10.728 COMPARISON: Uptake within the neck region appears new. Soft tissue uptake appears increased in the po sterior thorax. Uptake through the esophagus region is increasing SUV from prior study over similar d istribution. Uptake within the celiac axis region was present previously. Periaortic and retrocaval a denopathy is developing distally and was present for approximately. Uptake within the iliac chains is developing. IMPRESSION: 1. Extensive uptake through the esophagus over a similar distribution is increase in an SUV value fro m the prior study. 2. Uptake within the neck is a new finding from comparison. 3. Multiple mediastinal areas of uptake were present previously but increased in SUV value. 4. Developing periaortic and retrocaval uptake. 5. New right common iliac chain uptake.
== END | disposition home or self-care (01) ==
LOC: RADPETMAIN 08:14
PROVIDERS: ATTEND Internal Medicine Hematology & Oncology
DX: C15.5 Malignant neoplasm of lower third of esophagus (principal); R93.7 Abnormal findings on diagnostic imaging of other parts of musculoskeletal system
CPT/HCPCS: 78815; A9552